=== PATIENT | female | born 1930 | race Asian ===

== ENCOUNTER 2018-10-14 15:39 | Inpatient (IN) | payer MEDICARE, MEDICAID ==
[2018-10-14 16:37] LABS: % BASOPHILS 0.9 % (0.0-2.0); % EOSINOPHILS 0.4 % (0.0-5.0); % LYMPHOCYTES 13.3 % (20.0-50.0); % MONOCYTES 8.1 % (2.0-10.0); % NEUTROPHILS 77.3 % (40.0-80.0); BASOPHILE ABSOLUTE 0.1 Th/cumm (0-0.2); HEMATOCRIT 35.7 % (41.0-60); HEMOGLOBIN 11.9 gm/dL (12-16); LYMPHOCYTE ABSOLUTE 0.8 Th/cmm (1.5-3.0); MEAN CORPUSCULAR HGB CONC 33.3 pg (28.0-36.0); MEAN PLATELET VOLUME 7.5 fl; MONOCYTE ABSOLUTE 0.5 Th/cmm (0.3-1.0); NEUTROPHILE ABSOLUTE 4.8 Th/cmm (1.8-8.0); PLATELET COUNT 199 Th/cmm (150-400); RED BLOOD COUNT 3.31 Mil/cmm (3.80-5.20); WHITE BLOOD COUNT 6.2 Th/cmm (4.8-10.8)
[2018-10-14 16:56] LABS: ALB/GLOB RATIO 0.8 (1.0-1.8); ALBUMIN 2.7 gm/dL (3.7-5.3); ALKALINE PHOSPHATASE 47 U/L (34-104); AMYLASE SERUM 122 U/L (29-103); ANION GAP 14.5 (7.0-16.0); BILIRUBIN,TOTAL 0.8 mg/dL (0.3-1.0); BUN - UREA NITROGEN 48 mg/dL (7-25); CALCIUM SERUM 9.7 mg/dL (8.6-10.3); CARBON DIOXIDE 26.2 mEq/L (21.0-31.0); CHLORIDE 98 mEq/L (98-107); CREATININE - SERUM 1.9 mg/dL (0.6-1.2); GLUCOSE 92 mg/dL (70-105); LIPASE 180 U/L (11-82); MAGNESIUM 3.5 mg/dL (1.9-2.7); PHOSPHOROUS 4.4 mg/dL (2.5-5.0); POTASSIUM SERUM 4.7 mEq/L (3.5-5.1); SGOT 32 U/L (13-39); SGPT/ALT 13 U/L (7-52); SODIUM SERUM 134 mEq/L (136-145); TOTAL PROTEIN,SERUM 6.2 gm/dL (6.0-8.3)
[2018-10-14] MEDS ORDERED: Lactated Ringer 1,000 ML IV ONE (17:17)
--- NOTE | 2018-10-14 20:18 | ED Physician Chart ---
ED Chief Complaint/HPI - Patient Information Date Seen:: 10/14/18 Time Seen:: 06:40 Chief Complaint:: ascites abd pain History of Present Illness:: 87 yr old female with ascites pancreatitis liver cirrhosis generalized weakness osteopenia htn cholelithisis Allergies:: Allergies Allergy/AdvReac Type Severity Reaction Status Date / Time No Known Allergies Allergy Verified 10/14/18 16:09 Vitals:: Vital Signs - 8 hr 10/14/18 15:55 Temp 96.8 F HR 48 RR 18 BP 100/65 O2 Sat % 98 ED Review of Systems - Review of Systems General/Constitutional: No fever Head: No headache ENT: No earache Neck: No neck pain Cardio Vascular: No chest pain Pulmonary: No SOB GI: No vomiting ED Past Medical History - Past Medical History Past Medical History: Other (see HPI) ED Physical Exam - Physical Examination General/Constitutional: Awake Head: Atraumatic Other Skin comments:: SKIN JAUNDICED SCLERA ICTERIC Respiratory: Nl effort/Exclusion Other GI comments:: ABD DISTENTION ASCITES ED Labs/Radiology/EKG Results - Lab Results Results: Laboratory Tests 10/14/18 10/14/18 10/14/18 13:31 13:31 13:31 WBC 6.2 RBC 3.31 L Hgb 11.9 L Hct 35.7 L MCV 108.0 H MCH 36.0 H MCHC Differential 33.3 RDW 14.0 Plt Count 199 MPV 7.5 Neutrophils % 77.3 Lymphocytes % 13.3 L Monocytes % 8.1 Eosinophils % 0.4 Basophils % 0.9 Sodium 134 L Potassium 4.7 Chloride 98 Carbon Dioxide 26.2 Anion Gap 14.5 BUN 48 H Creatinine 1.9 H Est GFR ( Amer) TNP Est GFR (Non-Af Amer) TNP BUN/Creatinine Ratio 25.3 Glucose 92 Whole Bld Lactic Acid 2.01 H* Calcium 9.7 Phosphorus 4.4 Magnesium 3.5 H Total Bilirubin 0.8 AST 32 ALT 13 Alkaline Phosphatase 47 Ammonia Total Protein 6.2 Albumin 2.7 L Globulin 3.5 Albumin/Globulin Ratio 0.8 L Amylase 122 H Lipase 180 H TSH 10/14/18 10/14/18 10/14/18 16:31 16:31 19:40 WBC RBC Hgb Hct MCV MCH MCHC Differential RDW Plt Count MPV Neutrophils % Lymphocytes % Monocytes % Eosinophils % Basophils % Sodium Potassium Chloride Carbon Dioxide Anion Gap BUN Creatinine Est GFR ( Amer) Est GFR (Non-Af Amer) BUN/Creatinine Ratio Glucose Whole Bld Lactic Acid 2.68 H* Calcium Phosphorus Magnesium Total Bilirubin AST ALT Alkaline Phosphatase Ammonia 56 H Total Protein Albumin Globulin Albumin/Globulin Ratio Amylase Lipase TSH 3.98 ED Assessment - Assessment General Assessment: ASCITES ABD PAIN ED Septic Shock - . Is Septic Shock (SBP<90, OR Lactate>4 mmol\L) present?: No - <6hrs of presentation: Vital Signs: Vital Signs - 8 hr 10/14/18 15:55 Temp 96.8 F HR 48 RR 18 BP 100/65 O2 Sat % 98 ED Reassessment (Disposition) - Reassessment Reassessment:: ASCITES ABD PAIN - Diagnosis Diagnosis:: ASCITES ABD PAIN FECAL IMPACTION - Patient Disposition Discharge/Transfer:: Acute Care w/in this hosp Admitted to:: Telemetry Condition at Disposition:: Stable
[2018-10-15] MEDS ORDERED: D5-0.45NS 1,000 ML IV SCH (02:00)
[2018-10-15] MEDS ORDERED: Pneumococcal Vaccine 0.5 mL Vial IM ONE (04:00)
[2018-10-15 06:48] LABS: % BASOPHILS 0.1 % (0.0-2.0); % EOSINOPHILS 0.3 % (0.0-5.0); % LYMPHOCYTES 11.2 % (20.0-50.0); % MONOCYTES 8.7 % (2.0-10.0); % NEUTROPHILS 79.7 % (40.0-80.0); HEMATOCRIT 32.7 % (41.0-60); HEMOGLOBIN 11.1 gm/dL (12-16); LYMPHOCYTE ABSOLUTE 0.8 Th/cmm (1.5-3.0); MEAN CORPUSCULAR HEMOGLOBIN 36.7 pg (27.0-31.0); MEAN PLATELET VOLUME 7.6 fl; MONOCYTE ABSOLUTE 0.6 Th/cmm (0.3-1.0); NEUTROPHILE ABSOLUTE 5.4 Th/cmm (1.8-8.0); PLATELET COUNT 177 Th/cmm (150-400); RED BLOOD COUNT 3.03 Mil/cmm (3.80-5.20); RED CELL DISTRIBUTION WIDTH 13.9 % (11.5-20.0); WHITE BLOOD COUNT 6.8 Th/cmm (4.8-10.8)
[2018-10-15 07:05] LABS: ANION GAP 13.5 (7.0-16.0); BUN - UREA NITROGEN 56 mg/dL (7-25); CALCIUM SERUM 9.3 mg/dL (8.6-10.3); CARBON DIOXIDE 26.1 mEq/L (21.0-31.0); CHLORIDE 99 mEq/L (98-107); CREATININE - SERUM 2.3 mg/dL (0.6-1.2); GLUCOSE 105 mg/dL (70-105); POTASSIUM SERUM 4.6 mEq/L (3.5-5.1); SODIUM SERUM 134 mEq/L (136-145)
[2018-10-15 07:30] LABS: INR 1.06 (0.5-1.4)
[2018-10-15 08:11] VITALS: BP 110/66
--- NOTE | 2018-10-15 08:52 | Diagnostic Imaging Report ---
CT scan abdomen and pelvis without intravenous contrast HISTORY: Pain Total DLP equals 445 CTDI equals 8.3 Axial sections were obtained from the xiphoid process down to the pubic symphysis. The exam demonstrates moderate amount of diffuse ascites throughout the abdomen and pelvis. The liver exhibits a diminished size with an irregular contour. Findings consistent with cirrhosis. Spleen appears normal. No focal abnormalities seen within the pancreas. Small calcification noted near the kristin hepatis. Exact relationship to the gallbladder is uncertain. If necessary, sonography may provide additional assessment. The kidneys appear diminished in size bilaterally. No focal lesions or hydronephrosis. There is a severely dilated air and fluid-filled stomach along with severely dilated loops of small bowel. There is a severely distended stool-filled rectum and lower sigmoid colon. The findings may be associated with a fecal impaction. Clinical correlation is needed. No discrete abnormal soft tissue masses seen within the pelvis. IMPRESSION: 1. Markedly dilated fluid-filled stomach associated with multiple loops of markedly dilated small bowel. Though findings associated with a distal small bowel obstruction cannot be excluded, the presence of a distended stool-filled rectum and lower sigmoid colon may suggest changes related to fecal impaction. Clinical correlation is needed. 2. Ascites 3. Diminished hepatic size with irregularity consistent with cirrhosis 4. Small calcifications near the kristin hepatis. Exact relationship to the gallbladder is uncertain. If necessary, sonography would provide assessment of cholelithiasis 5. Diminished renal size 6. Striated appearance involving several vertebrae. Changes related to hemangiomas within the vertebrae cannot be excluded.
[2018-10-15] MEDS ORDERED: Fleet Enema 135 mL RC PRN (11:32)
[2018-10-15] MEDS: D5-0.45NS 1,000 ML IV SCH (13:09)
[2018-10-15] MEDS ORDERED: Magnesium Hydroxide (MOM) 30 mL UDC PO PRN (14:00)
--- NOTE | 2018-10-15 16:27 | History & Physical ---
ADMIT DATE: 10/15/2018 HISTORY OF PRESENT ILLNESS: An 87-year-old female patient. The patient known to have history of hepatitis, history of cirrhosis of the liver and generalized ascites, history of pancreatitis in the past. Also, severe osteopenia and malnutrition. The patient is a resident of [facility]. The patient started experiencing more shortness of breath and her abdominal girth was increasing. The patient was seen in the [facility] [place] in the ER and was transferred to the floor. The patient was somewhat lethargic, complaining of abdominal discomfort, blood pressure on the low side 100/65, heart rate was low at 48, respiratory rate was 18, and saturation was 98%. The patient has no fever, no chills, no rigors, no other problems. PAST MEDICAL HISTORY: As noted above. PHYSICAL EXAMINATION: GENERAL: The patient is malnourished, very thin, cachectic, protuberant abdomen. HEAD: Normal. ENT: Normal. LUNGS: Bilaterally decreased. CARDIOVASCULAR SYSTEM: S1, S2 heard. ABDOMEN: Softly distended and somewhat tense ascites. EXTREMITIES: Revealed no edema. 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 DIAGNOSES: Hypotension, bradycardia/severe tense ascites, abdominal pain, history of cirrhosis of the liver, history of pancreatitis in the past, malnutrition, megaloblastosis, high lactic acid of 2.68, rule out sepsis with lipase of 180 indicating some amount of pancreatitis, and fecal impaction was made. PLAN: The patient was admitted. I will go ahead and gingerly give her some colloids and albumin. I will continue her medication from the long term. We will do the ultrasound-guided paracentesis. Please note her albumin was 2.7 and high BUN and creatinine, so we will also call Dr. Ruggiero for consult and follow the patient. JOB# [id number]
[2018-10-15 23:52] LABS: URINE SOURCE CATH
[2018-10-16 01:20] LABS: URINE BILIRUBIN NEGATIVE (NEGATIVE); URINE BLOOD SMALL (NEGATIVE); URINE GLUCOSE (UA) NEGATIVE (NEGATIVE); URINE KETONE TRACE mg/dL (NEGATIVE); URINE LEUKOCYTE ESTERASE NEGATIVE (NEGATIVE); URINE MICROSCOPIC INDICATED? YES; URINE NITRATE NEGATIVE (NEGATIVE); URINE PH 5.5 (4.6 - 8.0); URINE PROTEIN NEGATIVE (NEGATIVE); URINE UROBILINOGEN 0.2 E.U./dL (0.2 - 1.0)
[2018-10-16 01:21] LABS: URINE CLARITY HAZY (CLEAR); URINE COLOR YELLOW
[2018-10-16 01:22] LABS: URINE BACTERIA FEW /hpf (NONE SEEN); URINE EPITHELIAL CELLS MANY /lpf (FEW); URINE RBC NONE SEEN /hpf (0-5)
[2018-10-16 02:08] LABS: EOSINOPHIL SMEAR SOURCE URINE; EOSINOPHILS SMEAR COUNT NONE SEEN (NONE SEEN)
--- NOTE | 2018-10-16 04:24 | Consultation ---
DATE OF CONSULTATION: 10/15/2018 REASON FOR CONSULTATION: Worsening kidney function, electrolyte imbalance, and fluid management. HISTORY OF PRESENT ILLNESS: This is an 87-year-old [place] female with past medical history of chronic kidney disease, who came in because of severe abdominal pain. Two days prior to admission, the patient developed abdominal pain. She was given several laxatives to no avail. This was also associated with increasing abdominal girth. A few hours prior to admission, she could no longer tolerate the pain. Thus, she was brought to the Emergency Room. CT scan of the abdomen/pelvis revealed stool filled rectum, ascites, liver cirrhosis, possible cholelithiasis and small kidneys. She had chronic kidney disease, per grandson. Her BUN/creatinine on admission were 48/1.9. Her BUN/creatinine today were 56/2.3. She does not have any nausea and vomiting, no diarrhea. PAST MEDICAL HISTORY: 1. Chronic kidney disease. 2. Liver cirrhosis with ascites. The patient has had paracentesis for approximately three times within the last year. 3. Recurrent pancreatitis. 4. Essential hypertension. 5. Cholelithiasis. 6. Severe malnutrition. CURRENT MEDICATIONS: Currently on ascorbic acid, bisacodyl, docusate sodium, Fleet enema. ALLERGIES: No known drug allergies. SOCIAL HISTORY: No history of alcohol or tobacco use. FAMILY HISTORY: Unknown at the present time. REVIEW OF SYSTEMS: Unable to obtain from the patient because she is very lethargic at the present time. PHYSICAL EXAMINATION: GENERAL: As mentioned, the patient is lethargic, very cachectic, chronically ill looking. VITAL SIGNS: Her blood pressure is 115/68, pulse 58, temperature 97.3 degrees. SKIN: Poor turgor, warm, no rash, but she has multiple ecchymosis as well as hematomas in her lower extremities as well as upper extremities and left hand. HEENT: Head normocephalic, atraumatic. Eyes: Extraocular muscles intact. Pupils equal, round, reactive to light and accommodates. Anicteric sclerae, pale conjunctivae. Nose, midline nasal septum. Mouth: Dry mucosa. Poor dentition. NECK: Supple, no adenopathy, no thyromegaly, no bruits. Trachea palpated in the midline. CHEST AND CARDIOVASCULAR: S1, S2. No rub, murmur or gallop appreciated. Point of maximal impulse fifth intercostal space, left midclavicular line. No abdominal or femoral bruits appreciated. LUNGS: Equal expansion, no use of accessory muscles. No supraclavicular retractions. Decreased breath sounds, few rhonchi, but no rales or wheezes appreciated. BREASTS: Symmetrical, without any discharge. ABDOMEN: Presence of ascites, caput medusae, tympanitic on percussion. She also has a scalded skin appearance present in her left lower to left flank area. No bruits either diastolic or systolic. RECTAL: Lax sphincter tone with some stool on examining finger. GENITOURINARY: Normal appearing female genitalia. MUSCULOSKELETAL: No effusions present in her joints with limited range of motion. EXTREMITIES: No evidence of edema, cyanosis or clubbing with atrophic muscles of the lower extremities. NEUROLOGIC: As mentioned, the patient is somewhat lethargic, so she was not able to follow my neuro commands. LABORATORY DATA AND STUDIES: Did reveal white count is 6.8, hemoglobin 11.1, hematocrit 32.7, platelets 177. Sodium 134, potassium 4.6, chloride 95, bicarbonate 26, BUN 56, creatinine 2.3, glucose 105, calcium 9.3, phosphorus 4.4, magnesium 3.5, lipase 180. TSH 3.58. IMPRESSION: 1. Acute kidney injury on chronic kidney disease. The patient's chronic kidney disease is possibly due to a chronic ____ disease with history of longstanding liver cirrhosis, possibly from hepatitis (membranous glomerulonephritis or membranous proliferative glomerulonephritis). Acute kidney injury in this case is prerenal initially because of decrease in effective circulating volume brought about by her ascites and decrease in effective circulating volume. Her prerenal azotemia may have progressed to acute tubular injury. However, we also need to consider hepatorenal syndrome, which is a diagnosis of exclusion. 2. Liver cirrhosis, etiology unknown, possibly hepatitis. 3. Macrocytosis. 4. Recurrent pancreatitis, possibly from presence of cholelithiasis. 5. Multiple hematomas. 6. Left abdominal to flank scalded skin wound. 7. Severe malnutrition. PLAN: 1. Gentle hydration. 2. Fleet enema. 3. Requires therapeutic paracentesis. 4. Hepatitis panel. 5. Urinalysis. 6. Urine sodium, eosinophils, and creatinine. 7. Urine microalbumin to creatinine ratio. 8. Fluid restriction. 9. Lipase, electrolytes. Thank you Dr. Gerber for this consult. We will follow the patient closely with you. JOB# [id number]
[2018-10-16] MEDS: D5-0.45NS 1,000 ML IV SCH (06:00)
[2018-10-16 06:42] LABS: ANION GAP 11.5 (7.0-16.0); BUN - UREA NITROGEN 60 mg/dL (7-25); CALCIUM SERUM 8.8 mg/dL (8.6-10.3); CARBON DIOXIDE 25.1 mEq/L (21.0-31.0); CHLORIDE 99 mEq/L (98-107); CREATININE - SERUM 2.4 mg/dL (0.6-1.2); GLUCOSE 98 mg/dL (70-105); LIPASE 190 U/L (11-82); POTASSIUM SERUM 3.6 mEq/L (3.5-5.1); SODIUM SERUM 132 mEq/L (136-145)
--- NOTE | 2018-10-16 09:20 | Diagnostic Imaging Report ---
KUB abdominal film (portable) HISTORY: Pain, fecal impaction Compared with the prior CT scan of 10/14/2018, there remains multiple loops of mildly dilated small bowel. Changes associated with a degree of obstruction cannot be excluded. Follow-up is needed. No free intraperitoneal air. IMPRESSION: 1. Mildly dilated loops of small bowel. Changes related to a degree of obstruction cannot be excluded. Follow-up is needed.
[2018-10-16] MEDS: Lactulose 10 Gm/15 mL 30mL UDC PO SCH ×2 (10:42→16:24)
[2018-10-16 14:03] LABS: BODY FLUID SOURCE PARACENTHESIS
[2018-10-16 14:04] LABS: BF APPEARANCE CLEAR; BF COLOR PALE YELLOW
--- NOTE | 2018-10-16 15:15 | General Progress Note ---
Subjective - Review of Systems Service Date: 10/16/18 Subjective: more comfortable, less abd pain, no N/V Objective - Results Result Diagrams: 10/15/18 06:05 10/16/18 05:10 Recent Labs: Laboratory Last Values WBC 6.8 Th/cmm (4.8-10.8) 10/15/18 06:05 RBC 3.03 Mil/cmm (3.80-5.20) L 10/15/18 06:05 Hgb 11.1 gm/dL (12-16) L 10/15/18 06:05 Hct 32.7 % (41.0-60) L 10/15/18 06:05 MCV 108.0 fl (81-100) H 10/15/18 06:05 MCH 36.7 pg (27.0-31.0) H 10/15/18 06:05 MCHC Differential 34.0 pg (28.0-36.0) 10/15/18 06:05 RDW 13.9 % (11.5-20.0) 10/15/18 06:05 Plt Count 177 Th/cmm (150-400) 10/15/18 06:05 MPV 7.6 fl 10/15/18 06:05 Add Manual Diff 10/15/18 06:05 Neutrophils % 79.7 % (40.0-80.0) 10/15/18 06:05 Lymphocytes % 11.2 % (20.0-50.0) L 10/15/18 06:05 Monocytes % 8.7 % (2.0-10.0) 10/15/18 06:05 Eosinophils % 0.3 % (0.0-5.0) 10/15/18 06:05 Basophils % 0.1 % (0.0-2.0) 10/15/18 06:05 Eos Smear Source URINE 10/15/18 23:20 Eos Smear Total Cells NONE SEEN (NONE SEEN) 10/15/18 23:20 PT 11.0 SECONDS (9.5-11.5) 10/15/18 06:05 INR 1.06 (0.5-1.4) 10/15/18 06:05 PTT (Actin FS) 31.4 SECONDS (26.0-38.0) 10/15/18 06:05 Sodium 132 mEq/L (136-145) L 10/16/18 05:10 Potassium 3.6 mEq/L (3.5-5.1) 10/16/18 05:10 Chloride 99 mEq/L (98-107) 10/16/18 05:10 Carbon Dioxide 25.1 mEq/L (21.0-31.0) 10/16/18 05:10 Anion Gap 11.5 (7.0-16.0) 10/16/18 05:10 BUN 60 mg/dL (7-25) H 10/16/18 05:10 Creatinine 2.4 mg/dL (0.6-1.2) H 10/16/18 05:10 Est GFR ( Amer) TNP 10/16/18 05:10 Est GFR (Non-Af Amer) TNP 10/16/18 05:10 BUN/Creatinine Ratio 25.0 10/16/18 05:10 Glucose 98 mg/dL (70-105) 10/16/18 05:10 Whole Bld Lactic Acid 1.95 mmol/L (0.60-1.99) 10/15/18 08:08 Calcium 8.8 mg/dL (8.6-10.3) 10/16/18 05:10 Phosphorus 4.4 mg/dL (2.5-5.0) 10/14/18 13:31 Magnesium 3.5 mg/dL (1.9-2.7) H 10/14/18 13:31 Total Bilirubin 0.8 mg/dL (0.3-1.0) 10/14/18 13:31 AST 32 U/L (13-39) 10/14/18 13:31 ALT 13 U/L (7-52) 10/14/18 13:31 Alkaline Phosphatase 47 U/L (34-104) 10/14/18 13:31 Ammonia 37 umol/L (16-53) 10/15/18 06:05 Total Protein 6.2 gm/dL (6.0-8.3) 10/14/18 13:31 Albumin 2.7 gm/dL (3.7-5.3) L 10/14/18 13:31 Globulin 3.5 gm/dL 10/14/18 13:31 Albumin/Globulin Ratio 0.8 (1.0-1.8) L 10/14/18 13:31 Amylase 122 U/L (29-103) H 10/14/18 13:31 Lipase 190 U/L (11-82) H 10/16/18 05:10 TSH 3.98 uIU/ml (0.34-5.60) 10/14/18 16:31 Urine Source CATH 10/15/18 23:20 Urine Color YELLOW 10/15/18 23:20 Urine Clarity HAZY (CLEAR) 10/15/18 23:20 Urine pH 5.5 (4.6 - 8.0) 10/15/18 23:20 Ur Specific [place] 1.025 (1.005-1.030) 10/15/18 23:20 Urine Protein NEGATIVE mg/dL (NEGATIVE) 10/15/18 23:20 Urine Glucose (UA) NEGATIVE mg/dL (NEGATIVE) 10/15/18 23:20 Urine Ketones TRACE mg/dL (NEGATIVE) 10/15/18 23:20 Urine Blood SMALL (NEGATIVE) H 10/15/18 23:20 Urine Nitrate NEGATIVE (NEGATIVE) 10/15/18 23:20 Urine Bilirubin NEGATIVE (NEGATIVE) 10/15/18 23:20 Urine Urobilinogen 0.2 E.U./dL (0.2 - 1.0) 10/15/18 23:20 Ur Leukocyte Esterase NEGATIVE (NEGATIVE) 10/15/18 23:20 Urine RBC NONE SEEN /hpf (0-5) 10/15/18 23:20 Urine WBC 2-5 /hpf (0-5) 10/15/18 23:20 Ur Epithelial Cells MANY /lpf (FEW) 10/15/18 23:20 Urine Bacteria FEW /hpf (NONE SEEN) 10/15/18 23:20 Ur Random Sodium 61 mmol/L 10/15/18 23:20 Urine Creatinine 71.0 mg/dl (28.0-217.0) 10/15/18 23:20 Fluid Source PARACENTHESIS 10/16/18 10:20 Fluid Color PALE YELLOW 10/16/18 10:20 Fluid Appearance CLEAR 10/16/18 10:20 - Physical Exam Vitals and I&O: Vital Signs Temp 96.4 F 10/16/18 12:00 Pulse 51 10/16/18 12:00 Resp 18 10/16/18 12:00 BP 98/46 10/16/18 12:00 Pulse Ox 100 10/16/18 12:00 Intake & Output 10/15/18 10/16/18 10/16/18 18:59 06:59 18:59 Intake Total 500 565.5 Balance 500 565.5 Weight (lbs) 37.648 kg 37.195 kg Intake: Intake, IV Amount 505.5 D5-0.45NS 1,000 ml @ 30 505.5 mls/hr IV .Q24H [facility] Rx#: [id number] Oral 500 60 Other: # Voids 2 4 # Bowel Movements 1 3 Stool Characteristics Soft Formed Weight Source Bedscale Bedscale Active Medications: Current Medications Ascorbic Acid (Vitamin C) 500 mg PO DAILY [facility] Stop: 12/15/18 08:59 Last Admin: 10/16/18 10:42 Dose: 500 mg Bisacodyl (Dulcolax 10 Mg Supp) 10 mg RC DAILY PRN PRN Reason: Constipation Stop: 12/14/18 11:31 Last Admin: 10/15/18 13:59 Dose: 10 mg Docusate Sodium (Colace) 250 mg PO DAILY [facility] Stop: 12/15/18 08:59 Last Admin: 10/16/18 10:43 Dose: 250 mg Dextrose/Sodium Chloride (D5-0.45ns) 1,000 mls @ 30 mls/hr IV .Q24H [facility] Stop: 12/14/18 12:59 Last Admin: 10/16/18 06:00 Dose: 30 mls/hr Lactulose (Cephulac) 30 gm PO BID [facility] Stop: 12/15/18 08:59 Last Admin: 10/16/18 10:42 Dose: 30 gm Magnesium Hydroxide (Milk Of Magnesia) 30 ml PO DAILY PRN PRN Reason: Constipation Stop: 12/14/18 13:59 Ondansetron HCl (Zofran) 4 mg IV Q6H PRN PRN Reason: Nausea / Vomiting Stop: 12/14/18 01:48 Sodium Phosphate (Fleet Enema) 135 ml RC Q48HR PRN PRN Reason: Constipation Stop: 12/14/18 11:31 Last Admin: 10/15/18 13:59 Dose: 135 ml General: Alert, No acute distress HEENT: Atraumatic, Mucous membr. moist/pink Neck: Supple, JVD Cardiovascular: Regular rate, Normal S1, Normal S2 Lungs: Clear to auscultation Abdomen: Bowel sounds, Soft (less tender), Other (less tender, decreased distension) Extremities: no Edema Neurological: Sensation intact Skin: Significant lesion (scalded skin abd to left flank) Psych/Mental Status: Mood NL Assessment/Plan - Assessment Assessment: Liver Cirrhosis w/ ascitis Macrocytosis YULIYA on CKD Recurrent Pancratitis Multiple hematomas Scalded Skin Wound Severe Malnutrition - Plan Plan: Lab - Result Diagrams 10/15/18 06:05 10/16/18 05:10 Current Medications Ascorbic Acid (Vitamin C) 500 mg PO DAILY [facility] Stop: 12/15/18 08:59 Last Admin: 10/16/18 10:42 Dose: 500 mg Bisacodyl (Dulcolax 10 Mg Supp) 10 mg RC DAILY PRN PRN Reason: Constipation Stop: 12/14/18 11:31 Last Admin: 10/15/18 13:59 Dose: 10 mg Docusate Sodium (Colace) 250 mg PO DAILY [facility] Stop: 12/15/18 08:59 Last Admin: 10/16/18 10:43 Dose: 250 mg Dextrose/Sodium Chloride (D5-0.45ns) 1,000 mls @ 30 mls/hr IV .Q24H [facility] Stop: 12/14/18 12:59 Last Admin: 10/16/18 06:00 Dose: 30 mls/hr Lactulose (Cephulac) 30 gm PO BID [facility] Stop: 12/15/18 08:59 Last Admin: 10/16/18 10:42 Dose: 30 gm Magnesium Hydroxide (Milk Of Magnesia) 30 ml PO DAILY PRN PRN Reason: Constipation Stop: 12/14/18 13:59 Ondansetron HCl (Zofran) 4 mg IV Q6H PRN PRN Reason: Nausea / Vomiting Stop: 12/14/18 01:48 Sodium Phosphate (Fleet Enema) 135 ml RC Q48HR PRN PRN Reason: Constipation Stop: 12/14/18 11:31 Last Admin: 10/15/18 13:59 Dose: 135 ml Lab - Result Diagrams 10/15/18 06:05 10/16/18 05:10 Bun/Cr increased to 60/2.4 Had 7 BM Underwent therapeutic tap, eve 500 ml peritoneal fluid obtained more comfortable f/u electrolytes Nutritional Asmnt/Malnutr-PDOC - Dietary Evaluation Malnutrition Findings (Please click <Entered> for more info): Nutritional Asmnt/Malnutrition Start: 10/15/18 11: 49 Text: Status: Complete Freq: Protocol: Document 10/15/18 11:49 [email or web address] (Rec: 10/15/18 11:56 [email or web address] [id number] [email or web address]) Nutritional Asmnt/Malnutrition Patient General Information Nutritional Screening High Risk Consult Diagnosis Ascites, abdominal pain, thrush fecal impaction Pertinent Medical Hx/Surgical Hx Pancreatitis, cholelithiasis, liver cirrhosis, osteopenia, cholecystitis, ascites Subjective Information Patient planned for paracentesis. Per nursing notes, patient needing fecal disimpacion and received fleet enema and suppository. Per family at bedside, patient has had a poor appetite and not eating for >1 week. He attributes this to her constipation and states she usually eats more. She especially will eat when they bring her food from outside. She prefers vanilla flavored supplements. He states she can tolerate regular diet texture without difficulty. patient visually with moderate to severe muscle wasting in temples and clavicles. Current Diet Order/ Nutrition Support Regular Patient / S.O Not Indicated Pertinent Medications Vitamin C, Dulcolax, D5-0.45 NS, colace, zofran, fleet enema Pertinent Labs (10/15) Na 134, BUN 56, Cr 2.3 (10/14) Mg 3.5, alumin 2.7 Nutritional Hx/Data Height 1.47 m Height (Calculated Centimeters) 147.3 Current Weight (lbs) 37.648 kg Weight (Calculated Kilograms) 37.6 Weight (Calculated Grams) 00473.2 [place] Body Weight 95 % [place] Body Weight 87 Body Mass Index (BMI) 17.3 Recent Weight Change No Weight Status Underweight GI Symptoms GI Symptoms Constipation Last BM prior to admissio Difficult in: None Food Allergies No Cultural/Ethnic/Church Belief none indicated Usual diet at home unknown Skin Integrity/Comment: Decubitus left leg, bruise right leg, maceration left hip , left abdomen, left back Nutritional Problem 2. Problem Problem Altered GI Function Etiology related to fecal impaction aeb Signs/Symptoms: nursing notes stating patient with impaction, pts family stating patient is uncomfortable and not wanting to eat due to constipation 1. Problem Problem Underweight related to Etiology likely inadequate intake/poor appetite aeb Signs/Symptoms: BMI 17.5 Intervention/Recommendation Comments 1. Continue reulgar diet as tolerated by patient. 2. Continue GI motility agents per MD to assist with constipation, which will help with appetite. 3. Add Ensure Enlive (vanilla) TID with meals to encourage weight gain. Expected Outcomes/Goals Expected Outcomes/Goals Oral intake >75% of meals, weight gain, nutrition related labs normalize
[2018-10-16 16:33] LABS: BF RBC 106.7 /cumm; BF WBC 33.3 /cumm
--- NOTE | 2018-10-16 19:58 | General Progress Note ---
Objective - Results Result Diagrams: 10/15/18 06:05 10/16/18 05:10 Recent Labs: Laboratory Last Values WBC 6.8 Th/cmm (4.8-10.8) 10/15/18 06:05 RBC 3.03 Mil/cmm (3.80-5.20) L 10/15/18 06:05 Hgb 11.1 gm/dL (12-16) L 10/15/18 06:05 Hct 32.7 % (41.0-60) L 10/15/18 06:05 MCV 108.0 fl (81-100) H 10/15/18 06:05 MCH 36.7 pg (27.0-31.0) H 10/15/18 06:05 MCHC Differential 34.0 pg (28.0-36.0) 10/15/18 06:05 RDW 13.9 % (11.5-20.0) 10/15/18 06:05 Plt Count 177 Th/cmm (150-400) 10/15/18 06:05 MPV 7.6 fl 10/15/18 06:05 Add Manual Diff 10/15/18 06:05 Neutrophils % 79.7 % (40.0-80.0) 10/15/18 06:05 Lymphocytes % 11.2 % (20.0-50.0) L 10/15/18 06:05 Monocytes % 8.7 % (2.0-10.0) 10/15/18 06:05 Eosinophils % 0.3 % (0.0-5.0) 10/15/18 06:05 Basophils % 0.1 % (0.0-2.0) 10/15/18 06:05 Eos Smear Source URINE 10/15/18 23:20 Eos Smear Total Cells NONE SEEN (NONE SEEN) 10/15/18 23:20 PT 11.0 SECONDS (9.5-11.5) 10/15/18 06:05 INR 1.06 (0.5-1.4) 10/15/18 06:05 PTT (Actin FS) 31.4 SECONDS (26.0-38.0) 10/15/18 06:05 Sodium 132 mEq/L (136-145) L 10/16/18 05:10 Potassium 3.6 mEq/L (3.5-5.1) 10/16/18 05:10 Chloride 99 mEq/L (98-107) 10/16/18 05:10 Carbon Dioxide 25.1 mEq/L (21.0-31.0) 10/16/18 05:10 Anion Gap 11.5 (7.0-16.0) 10/16/18 05:10 BUN 60 mg/dL (7-25) H 10/16/18 05:10 Creatinine 2.4 mg/dL (0.6-1.2) H 10/16/18 05:10 Est GFR ( Amer) TNP 10/16/18 05:10 Est GFR (Non-Af Amer) [facility] 10/16/18 05:10 BUN/Creatinine Ratio 25.0 10/16/18 05:10 Glucose 98 mg/dL (70-105) 10/16/18 05:10 Whole Bld Lactic Acid 1.95 mmol/L (0.60-1.99) 10/15/18 08:08 Calcium 8.8 mg/dL (8.6-10.3) 10/16/18 05:10 Phosphorus 4.4 mg/dL (2.5-5.0) 10/14/18 13:31 Magnesium 3.5 mg/dL (1.9-2.7) H 10/14/18 13:31 Total Bilirubin 0.8 mg/dL (0.3-1.0) 10/14/18 13:31 AST 32 U/L (13-39) 10/14/18 13:31 ALT 13 U/L (7-52) 10/14/18 13:31 Alkaline Phosphatase 47 U/L (34-104) 10/14/18 13:31 Ammonia 37 umol/L (16-53) 10/15/18 06:05 Total Protein 6.2 gm/dL (6.0-8.3) 10/14/18 13:31 Albumin 2.7 gm/dL (3.7-5.3) L 10/14/18 13:31 Globulin 3.5 gm/dL 10/14/18 13:31 Albumin/Globulin Ratio 0.8 (1.0-1.8) L 10/14/18 13:31 Amylase 122 U/L (29-103) H 10/14/18 13:31 Lipase 190 U/L (11-82) H 10/16/18 05:10 TSH 3.98 uIU/ml (0.34-5.60) 10/14/18 16:31 Urine Source CATH 10/15/18 23:20 Urine Color YELLOW 10/15/18 23:20 Urine Clarity HAZY (CLEAR) 10/15/18 23:20 Urine pH 5.5 (4.6 - 8.0) 10/15/18 23:20 Ur Specific [place] 1.025 (1.005-1.030) 10/15/18 23:20 Urine Protein NEGATIVE mg/dL (NEGATIVE) 10/15/18 23:20 Urine Glucose (UA) NEGATIVE mg/dL (NEGATIVE) 10/15/18 23:20 Urine Ketones TRACE mg/dL (NEGATIVE) 10/15/18 23:20 Urine Blood SMALL (NEGATIVE) H 10/15/18 23:20 Urine Nitrate NEGATIVE (NEGATIVE) 10/15/18 23:20 Urine Bilirubin NEGATIVE (NEGATIVE) 10/15/18 23:20 Urine Urobilinogen 0.2 E.U./dL (0.2 - 1.0) 10/15/18 23:20 Ur Leukocyte Esterase NEGATIVE (NEGATIVE) 10/15/18 23:20 Urine RBC NONE SEEN /hpf (0-5) 10/15/18 23:20 Urine WBC 2-5 /hpf (0-5) 10/15/18 23:20 Ur Epithelial Cells MANY /lpf (FEW) 10/15/18 23:20 Urine Bacteria FEW /hpf (NONE SEEN) 10/15/18 23:20 Ur Random Sodium 61 mmol/L 10/15/18 23:20 Urine Creatinine 71.0 mg/dl (28.0-217.0) 10/15/18 23:20 Fluid Source PARACENTHESIS 10/16/18 10:20 Fluid Color PALE YELLOW 10/16/18 10:20 Fluid Appearance CLEAR 10/16/18 10:20 Fluid WBC 33.3 /cumm 10/16/18 10:20 Fluid RBC 106.7 /cumm 10/16/18 10:20 Fluid Neutrophils 10 % 10/16/18 10:20 Fluid Lymphocytes 90 % 10/16/18 10:20 Fluid Monocytes Not Reportable 10/16/18 10:20 - Physical Exam Vitals and I&O: Vital Signs Temp 97.1 F 10/16/18 15:40 Pulse 60 10/16/18 15:40 Resp 18 10/16/18 15:40 BP 100/51 10/16/18 15:40 Pulse Ox 100 10/16/18 15:40 Intake & Output 10/16/18 10/16/18 10/17/18 06:59 18:59 06:59 Intake Total 565.5 600 Output Total 500 Balance 565.5 100 Weight (lbs) 37.195 kg 37.195 kg Intake: Intake, IV Amount 505.5 D5-0.45NS 1,000 ml @ 30 505.5 mls/hr IV .Q24H [facility] Rx#: [id number] Oral 60 600 Output: Gastric Drainage 500 Other: # Voids 4 3 # Bowel Movements 3 3 Weight Source Bedscale Bedscale Active Medications: Current Medications Ascorbic Acid (Vitamin C) 500 mg PO DAILY [facility] Stop: 12/15/18 08:59 Last Admin: 10/16/18 10:42 Dose: 500 mg Bisacodyl (Dulcolax 10 Mg Supp) 10 mg RC DAILY PRN PRN Reason: Constipation Stop: 12/14/18 11:31 Last Admin: 10/15/18 13:59 Dose: 10 mg Docusate Sodium (Colace) 250 mg PO DAILY [facility] Stop: 12/15/18 08:59 Last Admin: 10/16/18 10:43 Dose: 250 mg Dextrose/Sodium Chloride (D5-0.45ns) 1,000 mls @ 30 mls/hr IV .Q24H [facility] Stop: 12/14/18 12:59 Last Admin: 10/16/18 06:00 Dose: 30 mls/hr Lactulose (Cephulac) 30 gm PO BID [facility] Stop: 12/15/18 08:59 Last Admin: 10/16/18 16:24 Dose: 30 gm Magnesium Hydroxide (Milk Of Magnesia) 30 ml PO DAILY PRN PRN Reason: Constipation Stop: 12/14/18 13:59 Ondansetron HCl (Zofran) 4 mg IV Q6H PRN PRN Reason: Nausea / Vomiting Stop: 12/14/18 01:48 Sodium Phosphate (Fleet Enema) 135 ml RC Q48HR PRN PRN Reason: Constipation Stop: 12/14/18 11:31 Last Admin: 10/15/18 13:59 Dose: 135 ml General: Alert, No acute distress HEENT: Atraumatic, Mucous membr. moist/pink Neck: Supple, JVD Cardiovascular: Regular rate, Normal S1, Normal S2 Lungs: Clear to auscultation Abdomen: Bowel sounds, Soft (less tender), Other (less tender, decreased distension) Extremities: no Edema Neurological: Sensation intact Skin: Significant lesion (scalded skin abd to left flank) Psych/Mental Status: Mood NL Nutritional Asmnt/Malnutr-PDOC - Dietary Evaluation Malnutrition Findings (Please click <Entered> for more info): Nutritional Asmnt/Malnutrition Start: 10/15/18 11: 49 Text: Status: Complete Freq: Protocol: Document 10/15/18 11:49 MMULKANG (Rec: 10/15/18 11:56 MMULHERN PANKAJ- [email or web address]) Nutritional Asmnt/Malnutrition Patient General Information Nutritional Screening High Risk Consult Diagnosis Ascites, abdominal pain, thrush fecal impaction Pertinent Medical Hx/Surgical Hx Pancreatitis, cholelithiasis, liver cirrhosis, osteopenia, cholecystitis, ascites Subjective Information Patient planned for paracentesis. Per nursing notes, patient needing fecal disimpacion and received fleet enema and suppository. Per family at bedside, patient has had a poor appetite and not eating for >1 week. He attributes this to her constipation and states she usually eats more. She especially will eat when they bring her food from outside. She prefers vanilla flavored supplements. He states she can tolerate regular diet texture without difficulty. patient visually with moderate to severe muscle wasting in temples and clavicles. Current Diet Order/ Nutrition Support Regular Patient / S.O Not Indicated Pertinent Medications Vitamin C, Dulcolax, D5-0.45 NS, colace, zofran, fleet enema Pertinent Labs (10/15) Na 134, BUN 56, Cr 2.3 (10/14) Mg 3.5, alumin 2.7 Nutritional Hx/Data Height 1.47 m Height (Calculated Centimeters) 147.3 Current Weight (lbs) 37.648 kg Weight (Calculated Kilograms) 37.6 Weight (Calculated Grams) 74832.2 [place] Body Weight 95 % [place] Body Weight 87 Body Mass Index (BMI) 17.3 Recent Weight Change No Weight Status Underweight GI Symptoms GI Symptoms Constipation Last BM prior to admissio Difficult in: None Food Allergies No Cultural/Ethnic/Orthodox Belief none indicated Usual diet at home unknown Skin Integrity/Comment: Decubitus left leg, bruise right leg, maceration left hip , left abdomen, left back Nutritional Problem 2. Problem Problem Altered GI Function Etiology related to fecal impaction aeb Signs/Symptoms: nursing notes stating patient with impaction, pts family stating patient is uncomfortable and not wanting to eat due to constipation 1. Problem Problem Underweight related to Etiology likely inadequate intake/poor appetite aeb Signs/Symptoms: BMI 17.5 Intervention/Recommendation Comments 1. Continue reulgar diet as tolerated by patient. 2. Continue GI motility agents per MD to assist with constipation, which will help with appetite. 3. Add Ensure Enlive (vanilla) TID with meals to encourage weight gain. Expected Outcomes/Goals Expected Outcomes/Goals Oral intake >75% of meals, weight gain, nutrition related labs normalize
[2018-10-16] MEDS ORDERED: Hydrocodone/APAP 5mg/325mg Tab PO PRN (23:28)
[2018-10-17] MEDS: D5-0.45NS 1,000 ML IV SCH (02:01)
--- NOTE | 2018-10-17 05:52 | Consultation ---
DATE OF CONSULTATION: 10/16/2018 INPATIENT GI CONSULTATION CONSULTING PHYSICIAN: Dr. Gerber. REASON FOR CONSULTATION: Cirrhosis, fecal impaction, ascites. HISTORY OF PRESENT ILLNESS: The patient is an 87-year-old female with history of liver cirrhosis, decompensated by ascites and possibly by hepatic encephalopathy, also with history of pancreatitis, admitted to the hospital with increased abdominal distention and perceived shortness of breath. The patient was at a nursing facility where it was thought that she was having increasing abdominal girth and experiencing trouble breathing, which is the reason that she was transferred to the acute care hospital. Apparently, she has been complaining of abdominal discomfort, although she is largely nonverbal when I tried to interact with her on the current interview. Her evaluation here has consisted of a CT scan showing fecal impaction type changes as well as several fluid and stool-filled loops of small bowel in addition to ascites. Since her admission, she has been given a Fleet enema and Dulcolax suppository and has had three large bowel movements, according to the nursing staff and become less distended. A paracentesis was ordered, but not yet performed as there was waiting for the fecal impaction to resolve. PAST MEDICAL HISTORY: Cirrhosis of the liver of unclear etiology is decompensated by ascites and hepatic encephalopathy, history of pancreatitis, dysphagia, chronic kidney disease. PAST SURGICAL HISTORY: Unknown as the patient is unable to give me a history in this regard. FAMILY HISTORY: Noncontributory. SOCIAL HISTORY: The patient lives at a nursing facility. There is no documented history of alcoholism or illicit drugs. ALLERGIES: No known drug allergies. REVIEW OF SYSTEMS: Not possible given the patient is not able to interact with me and interview. CURRENT MEDICATIONS: Include Vitamin C, Dulcolax suppository, IV fluid, Colace, milk of magnesia, Zofran, Fleet enema. PHYSICAL EXAMINATION: VITAL SIGNS: Blood pressure is 127/50, pulse 45 beats per minute, temperature 97.0, oxygenation 96% on 2 liters, respiratory rate of 18. GENERAL: She is lying in bed on her back at 30 degrees. She is alert, oriented x 1, in no apparent distress. HEAD, EYES, EARS, NOSE AND THROAT: Normocephalic, atraumatic appearing head. Pupils are equal and reactive. The patient does not have any teeth, otherwise moist mucous membranes. NECK: Supple. There is JVD. There is no thyromegaly. CHEST: There are crackles at the bases. CARDIOVASCULAR: S1, S2 are present, but bradycardic. ABDOMEN: There is a bandage covering what appears to be a rash otherwise a mild to moderate distention, although not tense. No guarding or rebound. No tenderness to deep palpation. EXTREMITIES: 1+ pitting edema bilaterally, frail appearing, otherwise with venous stasis changes. LABORATORY DATA: White blood cell count 6.8, hemoglobin 11.1, platelet count 177. INR is 1.06. Sodium 134, BUN 56, creatinine is 2.3. Ammonia level 56 on admission, now 37, lipase 190. IMAGING: Abdomen and pelvis CT scan was performed on admission without contrast and this shows markedly dilated fluid filled stomach and lower loops of small bowel and fecal impaction, ascites, liver cirrhosis. IMPRESSION: This is an 87-year-old female with history of liver cirrhosis, decompensated by ascites and hepatic encephalopathy, admitted to the hospital with increasing abdominal distention and shortness of breath. 1. Liver cirrhosis, decompensated by ascites and hepatic encephalopathy. 2. Fecal impaction. 3. Ileus likely related to fecal impaction. 4. Abdominal ascites. 5. Dementia. DISCUSSION: It appears that the patient has had at least partial resolution of her fecal impaction since her admission as she has had several bowel movements after the Fleet enema was given her and her abdomen is now less distended as per the staff. I think she likely has some more stool to go and that is we will order her to have tap water enemas every 12 hours for 1 day as well as institute an oral regimen. Continue lactulose as she does have cirrhosis with hepatic encephalopathy, which will also help prevent impactions in the future. This will also help with her encephalopathy. Paracentesis has already been ordered and this is a good idea just to rule out SBP and will be done by the radiologist. In terms of liver cirrhosis, I think it is highly likely that this has already been worked up with labs previously and those records can be obtained rather than trying to do another set of the same labs now. RECOMMENDATIONS: 1. We will order lactulose to help with both encephalopathy and prevent fecal impaction going forward. 2. Tap water enemas every 12 hours for 1 day. 3. Agree with paracentesis. Cell count should be sent from the fluid. 4. Oral diet as tolerated. 5. Continue to trend the LFTs and the ammonia level. 6. Management of the patient's other chronic medical illnesses as per primary. Thank you for allowing me to participate in her care. Please call with any further questions. JOB# [id number]
[2018-10-17 06:00] LABS: ANION GAP 10.7 (7.0-16.0); BUN - UREA NITROGEN 58 mg/dL (7-25); CALCIUM SERUM 8.8 mg/dL (8.6-10.3); CARBON DIOXIDE 21.8 mEq/L (21.0-31.0); CHLORIDE 103 mEq/L (98-107); CREATININE - SERUM 2.3 mg/dL (0.6-1.2); GLUCOSE 105 mg/dL (70-105); POTASSIUM SERUM 3.5 mEq/L (3.5-5.1); SODIUM SERUM 132 mEq/L (136-145)
--- NOTE | 2018-10-17 08:06 | Diagnostic Imaging Report ---
Exam: Paracentesis. HISTORY: Ascites. Findings: Real-time ultrasound examination abdomen performed multiple planes for paracentesis. Approximately 5 cc of ascitic fluid was aspirated and sent to pathology. Patient tolerated procedure well without complications IMPRESSION: Successful right abdominal paracentesis, 500 cc of ascitic fluid obtained and sent to pathology.
[2018-10-17] MEDS: Lactulose 10 Gm/15 mL 30mL UDC PO SCH ×2 (08:32→17:08)
--- NOTE | 2018-10-17 13:29 | General Progress Note ---
Subjective - Review of Systems Service Date: 10/17/18 Subjective: more comfortable, less abd pain, no N/V Objective - Results Result Diagrams: 10/15/18 06:05 10/17/18 05:15 Recent Labs: Laboratory Last Values WBC 6.8 Th/cmm (4.8-10.8) 10/15/18 06:05 RBC 3.03 Mil/cmm (3.80-5.20) L 10/15/18 06:05 Hgb 11.1 gm/dL (12-16) L 10/15/18 06:05 Hct 32.7 % (41.0-60) L 10/15/18 06:05 MCV 108.0 fl (81-100) H 10/15/18 06:05 MCH 36.7 pg (27.0-31.0) H 10/15/18 06:05 MCHC Differential 34.0 pg (28.0-36.0) 10/15/18 06:05 RDW 13.9 % (11.5-20.0) 10/15/18 06:05 Plt Count 177 Th/cmm (150-400) 10/15/18 06:05 MPV 7.6 fl 10/15/18 06:05 Add Manual Diff 10/15/18 06:05 Neutrophils % 79.7 % (40.0-80.0) 10/15/18 06:05 Lymphocytes % 11.2 % (20.0-50.0) L 10/15/18 06:05 Monocytes % 8.7 % (2.0-10.0) 10/15/18 06:05 Eosinophils % 0.3 % (0.0-5.0) 10/15/18 06:05 Basophils % 0.1 % (0.0-2.0) 10/15/18 06:05 Eos Smear Source URINE 10/15/18 23:20 Eos Smear Total Cells NONE SEEN (NONE SEEN) 10/15/18 23:20 PT 11.0 SECONDS (9.5-11.5) 10/15/18 06:05 INR 1.06 (0.5-1.4) 10/15/18 06:05 PTT (Actin FS) 31.4 SECONDS (26.0-38.0) 10/15/18 06:05 Sodium 132 mEq/L (136-145) L 10/17/18 05:15 Potassium 3.5 mEq/L (3.5-5.1) 10/17/18 05:15 Chloride 103 mEq/L (98-107) 10/17/18 05:15 Carbon Dioxide 21.8 mEq/L (21.0-31.0) 10/17/18 05:15 Anion Gap 10.7 (7.0-16.0) 10/17/18 05:15 BUN 58 mg/dL (7-25) H 10/17/18 05:15 Creatinine 2.3 mg/dL (0.6-1.2) H 10/17/18 05:15 Est GFR ( Amer) TNP 10/17/18 05:15 Est GFR (Non-Af Amer) TNP 10/17/18 05:15 BUN/Creatinine Ratio 25.2 10/17/18 05:15 Glucose 105 mg/dL (70-105) 10/17/18 05:15 Whole Bld Lactic Acid 1.95 mmol/L (0.60-1.99) 10/15/18 08:08 Calcium 8.8 mg/dL (8.6-10.3) 10/17/18 05:15 Phosphorus 4.4 mg/dL (2.5-5.0) 10/14/18 13:31 Magnesium 3.5 mg/dL (1.9-2.7) H 10/14/18 13:31 Total Bilirubin 0.8 mg/dL (0.3-1.0) 10/14/18 13:31 AST 32 U/L (13-39) 10/14/18 13:31 ALT 13 U/L (7-52) 10/14/18 13:31 Alkaline Phosphatase 47 U/L (34-104) 10/14/18 13:31 Ammonia 37 umol/L (16-53) 10/15/18 06:05 Total Protein 6.2 gm/dL (6.0-8.3) 10/14/18 13:31 Albumin 2.7 gm/dL (3.7-5.3) L 10/14/18 13:31 Globulin 3.5 gm/dL 10/14/18 13:31 Albumin/Globulin Ratio 0.8 (1.0-1.8) L 10/14/18 13:31 Amylase 122 U/L (29-103) H 10/14/18 13:31 Lipase 190 U/L (11-82) H 10/16/18 05:10 TSH 3.98 uIU/ml (0.34-5.60) 10/14/18 16:31 Urine Source CATH 10/15/18 23:20 Urine Color YELLOW 10/15/18 23:20 Urine Clarity HAZY (CLEAR) 10/15/18 23:20 Urine pH 5.5 (4.6 - 8.0) 10/15/18 23:20 Ur Specific [place] 1.025 (1.005-1.030) 10/15/18 23:20 Urine Protein NEGATIVE mg/dL (NEGATIVE) 10/15/18 23:20 Urine Glucose (UA) NEGATIVE mg/dL (NEGATIVE) 10/15/18 23:20 Urine Ketones TRACE mg/dL (NEGATIVE) 10/15/18 23:20 Urine Blood SMALL (NEGATIVE) H 10/15/18 23:20 Urine Nitrate NEGATIVE (NEGATIVE) 10/15/18 23:20 Urine Bilirubin NEGATIVE (NEGATIVE) 10/15/18 23:20 Urine Urobilinogen 0.2 E.U./dL (0.2 - 1.0) 10/15/18 23:20 Ur Leukocyte Esterase NEGATIVE (NEGATIVE) 10/15/18 23:20 Urine RBC NONE SEEN /hpf (0-5) 10/15/18 23:20 Urine WBC 2-5 /hpf (0-5) 10/15/18 23:20 Ur Epithelial Cells MANY /lpf (FEW) 10/15/18 23:20 Urine Bacteria FEW /hpf (NONE SEEN) 10/15/18 23:20 Ur Random Sodium 61 mmol/L 10/15/18 23:20 Urine Creatinine 71.0 mg/dl (28.0-217.0) 10/15/18 23:20 Microalb/Creat Ratio 56.2 mg/g creat (0.0-30.0) H 10/15/18 23:20 Fluid Source PARACENTHESIS 10/16/18 10:20 Fluid Color PALE YELLOW 10/16/18 10:20 Fluid Appearance CLEAR 10/16/18 10:20 Fluid WBC 33.3 /cumm 10/16/18 10:20 Fluid RBC 106.7 /cumm 10/16/18 10:20 Fluid Neutrophils 10 % 10/16/18 10:20 Fluid Lymphocytes 90 % 10/16/18 10:20 Fluid Monocytes Not Reportable 10/16/18 10:20 - Physical Exam Vitals and I&O: Vital Signs Temp 96.5 F 10/17/18 04:00 Pulse 48 10/17/18 04:00 Resp 18 10/17/18 04:00 BP 93/46 10/17/18 04:00 Pulse Ox 97 10/17/18 04:00 Intake & Output 10/16/18 10/17/18 10/17/18 18:59 06:59 18:59 Intake Total 600 660.5 Output Total 500 Balance 100 660.5 Weight (lbs) 37.195 kg 37.195 kg Intake: Intake, IV Amount 600.5 D5-0.45NS 1,000 ml @ 30 600.5 mls/hr IV .Q24H [facility]PLACED BY [facility] Rx#: [id number] Oral 600 60 Output: Gastric Drainage 500 Other: # Voids 3 4 # Bowel Movements 3 3 Weight Source Bedscale Bedscale Active Medications: Current Medications Acetaminophen/Hydrocodone Bitart ([place] 5mg/325mg) 1 tab PO Q4H PRN PRN Reason: MILD TO MODERATE PAIN Stop: 12/15/18 23:27 Ascorbic Acid (Vitamin C) 500 mg PO DAILY [facility] Stop: 12/15/18 08:59 Last Admin: 10/17/18 08:32 Dose: 500 mg Bisacodyl (Dulcolax 10 Mg Supp) 10 mg RC DAILY PRN PRN Reason: Constipation Stop: 12/14/18 11:31 Last Admin: 10/15/18 13:59 Dose: 10 mg Docusate Sodium (Colace) 250 mg PO DAILY [facility] Stop: 12/15/18 08:59 Last Admin: 10/17/18 08:32 Dose: 250 mg Dextrose/Sodium Chloride (D5-0.45ns) 1,000 mls @ 30 mls/hr IV .Q24H [facility]PL[facility] Stop: 12/14/18 12:59 Last Admin: 10/17/18 02:01 Dose: 30 mls/hr Lactulose (Cephulac) 30 gm PO BID [facility] Stop: 12/15/18 08:59 Last Admin: 10/17/18 08:32 Dose: 30 gm Magnesium Hydroxide (Milk Of Magnesia) 30 ml PO DAILY PRN PRN Reason: Constipation Stop: 12/14/18 13:59 Miscellaneous (Clinical Monitoring) 1 ea MC DAILY PRN PRN Reason: RENAL DOSING Stop: 12/16/18 09:00 Ondansetron HCl (Zofran) 4 mg IV Q6H PRN PRN Reason: Nausea / Vomiting Stop: 12/14/18 01:48 Sodium Phosphate (Fleet Enema) 135 ml RC Q48HR PRN PRN Reason: Constipation Stop: 12/14/18 11:31 Last Admin: 10/15/18 13:59 Dose: 135 ml General: Alert, No acute distress HEENT: Atraumatic, Mucous membr. moist/pink Neck: Supple, JVD Cardiovascular: Regular rate, Normal S1, Normal S2 Lungs: Clear to auscultation Abdomen: Bowel sounds, Soft (less tender), Distended, Other (less tender, decreased distension) Extremities: no Edema Neurological: Sensation intact Skin: Significant lesion (scalded skin abd to left flank) Psych/Mental Status: Mood NL Assessment/Plan - Assessment Assessment: Liver Cirrhosis w/ ascitis Macrocytosis YULIYA on CKD Recurrent Pancratitis Multiple hematomas Scalded Skin Wound Severe Malnutrition - Plan Plan: Lab - Result Diagrams 10/15/18 06:05 10/16/18 05:10 Current Medications Ascorbic Acid (Vitamin C) 500 mg PO DAILY [facility] Stop: 12/15/18 08:59 Last Admin: 10/16/18 10:42 Dose: 500 mg Bisacodyl (Dulcolax 10 Mg Supp) 10 mg RC DAILY PRN PRN Reason: Constipation Stop: 12/14/18 11:31 Last Admin: 10/15/18 13:59 Dose: 10 mg Docusate Sodium (Colace) 250 mg PO DAILY [facility] Stop: 12/15/18 08:59 Last Admin: 10/16/18 10:43 Dose: 250 mg Dextrose/Sodium Chloride (D5-0.45ns) 1,000 mls @ 30 mls/hr IV .Q24H [facility] Stop: 12/14/18 12:59 Last Admin: 10/16/18 06:00 Dose: 30 mls/hr Lactulose (Cephulac) 30 gm PO BID [facility] Stop: 12/15/18 08:59 Last Admin: 10/16/18 10:42 Dose: 30 gm Magnesium Hydroxide (Milk Of Magnesia) 30 ml PO DAILY PRN PRN Reason: Constipation Stop: 12/14/18 13:59 Ondansetron HCl (Zofran) 4 mg IV Q6H PRN PRN Reason: Nausea / Vomiting Stop: 12/14/18 01:48 Sodium Phosphate (Fleet Enema) 135 ml RC Q48HR PRN PRN Reason: Constipation Stop: 12/14/18 11:31 Last Admin: 10/15/18 13:59 Dose: 135 ml Lab - Result Diagrams 10/15/18 06:05 10/17/18 05:15 Bun/Cr improved to 58/2.3. Underwent therapeutic tap, eve 500 ml peritoneal fluid obtained more comfortable f/u electrolytes Nutritional Asmnt/Malnutr-PDOC - Dietary Evaluation Malnutrition Findings (Please click <Entered> for more info): Nutritional Asmnt/Malnutrition Start: 10/15/18 11: 49 Text: Status: Complete Freq: Protocol: Document 10/15/18 11:49 MMULKANG (Rec: 10/15/18 11:56 MMULHERN PANKAJ [email or web address]) Nutritional Asmnt/Malnutrition Patient General Information Nutritional Screening High Risk Consult Diagnosis Ascites, abdominal pain, thrush fecal impaction Pertinent Medical Hx/Surgical Hx Pancreatitis, cholelithiasis, liver cirrhosis, osteopenia, cholecystitis, ascites Subjective Information Patient planned for paracentesis. Per nursing notes, patient needing fecal disimpacion and received fleet enema and suppository. Per family at bedside, patient has had a poor appetite and not eating for >1 week. He attributes this to her constipation and states she usually eats more. She especially will eat when they bring her food from outside. She prefers vanilla flavored supplements. He states she can tolerate regular diet texture without difficulty. patient visually with moderate to severe muscle wasting in temples and clavicles. Current Diet Order/ Nutrition Support Regular Patient / S.O Not Indicated Pertinent Medications Vitamin C, Dulcolax, D5-0.45 NS, colace, zofran, fleet enema Pertinent Labs (10/15) Na 134, BUN 56, Cr 2.3 (10/14) Mg 3.5, alumin 2.7 Nutritional Hx/Data Height 1.47 m Height (Calculated Centimeters) 147.3 Current Weight (lbs) 37.648 kg Weight (Calculated Kilograms) 37.6 Weight (Calculated Grams) 75590.2 [place] Body Weight 95 % [place] Body Weight 87 Body Mass Index (BMI) 17.3 Recent Weight Change No Weight Status Underweight GI Symptoms GI Symptoms Constipation Last BM prior to admissio Difficult in: None Food Allergies No Cultural/Ethnic/Hindu Belief none indicated Usual diet at home unknown Skin Integrity/Comment: Decubitus left leg, bruise right leg, maceration left hip , left abdomen, left back Nutritional Problem 2. Problem Problem Altered GI Function Etiology related to fecal impaction aeb Signs/Symptoms: nursing notes stating patient with impaction, pts family stating patient is uncomfortable and not wanting to eat due to constipation 1. Problem Problem Underweight related to Etiology likely inadequate intake/poor appetite aeb Signs/Symptoms: BMI 17.5 Intervention/Recommendation Comments 1. Continue reulgar diet as tolerated by patient. 2. Continue GI motility agents per MD to assist with constipation, which will help with appetite. 3. Add Ensure Enlive (vanilla) TID with meals to encourage weight gain. Expected Outcomes/Goals Expected Outcomes/Goals Oral intake >75% of meals, weight gain, nutrition related labs normalize
--- NOTE | 2018-10-17 16:57 | Internal Medicine Prog Note ---
Internal Medicine Subjective - Subjective Patient seen and examined:: chart reviewed Patient is:: awake (DOING BETTER , NO PAIN AT THIS TIME ) Per staff patient has:: no adverse event Internal Medicine Objective - Results Result Diagrams: 10/15/18 06:05 10/17/18 05:15 Recent Labs: Laboratory Last Values WBC 6.8 Th/cmm (4.8-10.8) 10/15/18 06:05 RBC 3.03 Mil/cmm (3.80-5.20) L 10/15/18 06:05 Hgb 11.1 gm/dL (12-16) L 10/15/18 06:05 Hct 32.7 % (41.0-60) L 10/15/18 06:05 MCV 108.0 fl (81-100) H 10/15/18 06:05 MCH 36.7 pg (27.0-31.0) H 10/15/18 06:05 MCHC Differential 34.0 pg (28.0-36.0) 10/15/18 06:05 RDW 13.9 % (11.5-20.0) 10/15/18 06:05 Plt Count 177 Th/cmm (150-400) 10/15/18 06:05 MPV 7.6 fl 10/15/18 06:05 Add Manual Diff 10/15/18 06:05 Neutrophils % 79.7 % (40.0-80.0) 10/15/18 06:05 Lymphocytes % 11.2 % (20.0-50.0) L 10/15/18 06:05 Monocytes % 8.7 % (2.0-10.0) 10/15/18 06:05 Eosinophils % 0.3 % (0.0-5.0) 10/15/18 06:05 Basophils % 0.1 % (0.0-2.0) 10/15/18 06:05 Eos Smear Source URINE 10/15/18 23:20 Eos Smear Total Cells NONE SEEN (NONE SEEN) 10/15/18 23:20 PT 11.0 SECONDS (9.5-11.5) 10/15/18 06:05 INR 1.06 (0.5-1.4) 10/15/18 06:05 PTT (Actin FS) 31.4 SECONDS (26.0-38.0) 10/15/18 06:05 Sodium 132 mEq/L (136-145) L 10/17/18 05:15 Potassium 3.5 mEq/L (3.5-5.1) 10/17/18 05:15 Chloride 103 mEq/L (98-107) 10/17/18 05:15 Carbon Dioxide 21.8 mEq/L (21.0-31.0) 10/17/18 05:15 Anion Gap 10.7 (7.0-16.0) 10/17/18 05:15 BUN 58 mg/dL (7-25) H 10/17/18 05:15 Creatinine 2.3 mg/dL (0.6-1.2) H 10/17/18 05:15 Est GFR ( Amer) TNP 10/17/18 05:15 Est GFR (Non-Af Amer) TNP 10/17/18 05:15 BUN/Creatinine Ratio 25.2 10/17/18 05:15 Glucose 105 mg/dL (70-105) 10/17/18 05:15 Whole Bld Lactic Acid 1.95 mmol/L (0.60-1.99) 10/15/18 08:08 Calcium 8.8 mg/dL (8.6-10.3) 10/17/18 05:15 Phosphorus 4.4 mg/dL (2.5-5.0) 10/14/18 13:31 Magnesium 3.5 mg/dL (1.9-2.7) H 10/14/18 13:31 Total Bilirubin 0.8 mg/dL (0.3-1.0) 10/14/18 13:31 AST 32 U/L (13-39) 10/14/18 13:31 ALT 13 U/L (7-52) 10/14/18 13:31 Alkaline Phosphatase 47 U/L (34-104) 10/14/18 13:31 Ammonia 37 umol/L (16-53) 10/15/18 06:05 Total Protein 6.2 gm/dL (6.0-8.3) 10/14/18 13:31 Albumin 2.7 gm/dL (3.7-5.3) L 10/14/18 13:31 Globulin 3.5 gm/dL 10/14/18 13:31 Albumin/Globulin Ratio 0.8 (1.0-1.8) L 10/14/18 13:31 Amylase 122 U/L (29-103) H 10/14/18 13:31 Lipase 190 U/L (11-82) H 10/16/18 05:10 TSH 3.98 uIU/ml (0.34-5.60) 10/14/18 16:31 Urine Source CATH 10/15/18 23:20 Urine Color YELLOW 10/15/18 23:20 Urine Clarity HAZY (CLEAR) 10/15/18 23:20 Urine pH 5.5 (4.6 - 8.0) 10/15/18 23:20 Ur Specific [place] 1.025 (1.005-1.030) 10/15/18 23:20 Urine Protein NEGATIVE mg/dL (NEGATIVE) 10/15/18 23:20 Urine Glucose (UA) NEGATIVE mg/dL (NEGATIVE) 10/15/18 23:20 Urine Ketones TRACE mg/dL (NEGATIVE) 10/15/18 23:20 Urine Blood SMALL (NEGATIVE) H 10/15/18 23:20 Urine Nitrate NEGATIVE (NEGATIVE) 10/15/18 23:20 Urine Bilirubin NEGATIVE (NEGATIVE) 10/15/18 23:20 Urine Urobilinogen 0.2 E.U./dL (0.2 - 1.0) 10/15/18 23:20 Ur Leukocyte Esterase NEGATIVE (NEGATIVE) 10/15/18 23:20 Urine RBC NONE SEEN /hpf (0-5) 10/15/18 23:20 Urine WBC 2-5 /hpf (0-5) 10/15/18 23:20 Ur Epithelial Cells MANY /lpf (FEW) 10/15/18 23:20 Urine Bacteria FEW /hpf (NONE SEEN) 10/15/18 23:20 Ur Random Sodium 61 mmol/L 10/15/18 23:20 Urine Creatinine 71.0 mg/dl (28.0-217.0) 10/15/18 23:20 Microalb/Creat Ratio 56.2 mg/g creat (0.0-30.0) H 10/15/18 23:20 Fluid Source PARACENTHESIS 10/16/18 10:20 Fluid Color PALE YELLOW 10/16/18 10:20 Fluid Appearance CLEAR 10/16/18 10:20 Fluid WBC 33.3 /cumm 10/16/18 10:20 Fluid RBC 106.7 /cumm 10/16/18 10:20 Fluid Neutrophils 10 % 10/16/18 10:20 Fluid Lymphocytes 90 % 10/16/18 10:20 Fluid Monocytes Not Reportable 10/16/18 10:20 - Physical Exam Vitals and I&O: Vital Signs Temp 96.1 F 10/17/18 16:21 Pulse 66 10/17/18 16:21 Resp 17 10/17/18 16:21 BP 104/65 10/17/18 16:21 Pulse Ox 95 10/17/18 16:21 Intake & Output 10/16/18 10/17/18 10/17/18 18:59 06:59 18:59 Intake Total 600 660.5 Output Total 500 Balance 100 660.5 Weight (lbs) 37.195 kg 37.195 kg Intake: Intake, IV Amount 600.5 D5-0.45NS 1,000 ml @ 30 600.5 mls/hr IV .Q24H [facility] Rx#: [id number] Oral 600 60 Output: Gastric Drainage 500 Other: # Voids 3 4 # Bowel Movements 3 3 Stool Characteristics Soft Liquid Weight Source Bedscale Bedscale Active Medications: Current Medications Acetaminophen/Hydrocodone Bitart ([place] 5mg/325mg) 1 tab PO Q4H PRN PRN Reason: MILD TO MODERATE PAIN Stop: 12/15/18 23:27 Ascorbic Acid (Vitamin C) 500 mg PO DAILY [facility] Stop: 12/15/18 08:59 Last Admin: 10/17/18 08:32 Dose: 500 mg Bisacodyl (Dulcolax 10 Mg Supp) 10 mg RC DAILY PRN PRN Reason: Constipation Stop: 12/14/18 11:31 Last Admin: 10/15/18 13:59 Dose: 10 mg Docusate Sodium (Colace) 250 mg PO DAILY [facility] Stop: 12/15/18 08:59 Last Admin: 10/17/18 08:32 Dose: 250 mg Dextrose/Sodium Chloride (D5-0.45ns) 1,000 mls @ 30 mls/hr IV .Q24H [facility] Stop: 12/14/18 12:59 Last Admin: 10/17/18 02:01 Dose: 30 mls/hr Lactulose (Cephulac) 30 gm PO BID [facility] Stop: 12/15/18 08:59 Last Admin: 10/17/18 08:32 Dose: 30 gm Magnesium Hydroxide (Milk Of Magnesia) 30 ml PO DAILY PRN PRN Reason: Constipation Stop: 12/14/18 13:59 Miscellaneous (Clinical Monitoring) 1 ea MC DAILY PRN PRN Reason: RENAL DOSING Stop: 12/16/18 09:00 Ondansetron HCl (Zofran) 4 mg IV Q6H PRN PRN Reason: Nausea / Vomiting Stop: 12/14/18 01:48 Sodium Phosphate (Fleet Enema) 135 ml RC Q48HR PRN PRN Reason: Constipation Stop: 12/14/18 11:31 Last Admin: 10/15/18 13:59 Dose: 135 ml General: weak, alert HEENT: NC/AT Neck: Supple Lungs: CTAB Cardiovascular: RRR, Normal S1, Normal S2 Abdomen: soft Extremities: clear Neurological: no change Internal Medicine Assmt/Plan - Assessment Assessment: Liver Cirrhosis w/ ascitis Macrocytosis YULIYA on CKD Recurrent Pancratitis Multiple hematomas Scalded Skin Wound Severe Malnutrition - Plan Plan: PER ORDER SHEET Nutritional Asmnt/Malnutr-PDOC - Dietary Evaluation Malnutrition Findings (Please click <Entered> for more info): Nutritional Asmnt/Malnutrition Start: 10/15/18 11: 49 Text: Status: Complete Freq: Protocol: Document 10/15/18 11:49 MMJUSTIN (Rec: 10/15/18 11:56 [email or web address] LIRA- [email or web address]) Nutritional Asmnt/Malnutrition Patient General Information Nutritional Screening High Risk Consult Diagnosis Ascites, abdominal pain, thrush fecal impaction Pertinent Medical Hx/Surgical Hx Pancreatitis, cholelithiasis, liver cirrhosis, osteopenia, cholecystitis, ascites Subjective Information Patient planned for paracentesis. Per nursing notes, patient needing fecal disimpacion and received fleet enema and suppository. Per family at bedside, patient has had a poor appetite and not eating for >1 week. He attributes this to her constipation and states she usually eats more. She especially will eat when they bring her food from outside. She prefers vanilla flavored supplements. He states she can tolerate regular diet texture without difficulty. patient visually with moderate to severe muscle wasting in temples and clavicles. Current Diet Order/ Nutrition Support Regular Patient / S.O Not Indicated Pertinent Medications Vitamin C, Dulcolax, D5-0.45 NS, colace, zofran, fleet enema Pertinent Labs (10/15) Na 134, BUN 56, Cr 2.3 (10/14) Mg 3.5, alumin 2.7 Nutritional Hx/Data Height 1.47 m Height (Calculated Centimeters) 147.3 Current Weight (lbs) 37.648 kg Weight (Calculated Kilograms) 37.6 Weight (Calculated Grams) 47176.2 [place] Body Weight 95 % [place] Body Weight 87 Body Mass Index (BMI) 17.3 Recent Weight Change No Weight Status Underweight GI Symptoms GI Symptoms Constipation Last BM prior to admissio Difficult in: None Food Allergies No Cultural/Ethnic/Adventism Belief none indicated Usual diet at home unknown Skin Integrity/Comment: Decubitus left leg, bruise right leg, maceration left hip , left abdomen, left back Nutritional Problem 2. Problem Problem Altered GI Function Etiology related to fecal impaction aeb Signs/Symptoms: nursing notes stating patient with impaction, pts family stating patient is uncomfortable and not wanting to eat due to constipation 1. Problem Problem Underweight related to Etiology likely inadequate intake/poor appetite aeb Signs/Symptoms: BMI 17.5 Intervention/Recommendation Comments 1. Continue reulgar diet as tolerated by patient. 2. Continue GI motility agents per MD to assist with constipation, which will help with appetite. 3. Add Ensure Enlive (vanilla) TID with meals to encourage weight gain. Expected Outcomes/Goals Expected Outcomes/Goals Oral intake >75% of meals, weight gain, nutrition related labs normalize
--- NOTE | 2018-10-17 19:14 | GI Progress Note ---
Subjective - Review of Systems Service Date: 10/17/18 Subjective: GI NOTE EVENTS NOTED. MORE AWAKE. FEELS BETTER. LILIBETH ORAL DIET. Objective - Results Result Diagrams: 10/15/18 06:05 10/17/18 05:15 Recent Labs: Laboratory Last Values WBC 6.8 Th/cmm (4.8-10.8) 10/15/18 06:05 RBC 3.03 Mil/cmm (3.80-5.20) L 10/15/18 06:05 Hgb 11.1 gm/dL (12-16) L 10/15/18 06:05 Hct 32.7 % (41.0-60) L 10/15/18 06:05 MCV 108.0 fl (81-100) H 10/15/18 06:05 MCH 36.7 pg (27.0-31.0) H 10/15/18 06:05 MCHC Differential 34.0 pg (28.0-36.0) 10/15/18 06:05 RDW 13.9 % (11.5-20.0) 10/15/18 06:05 Plt Count 177 Th/cmm (150-400) 10/15/18 06:05 MPV 7.6 fl 10/15/18 06:05 Add Manual Diff 10/15/18 06:05 Neutrophils % 79.7 % (40.0-80.0) 10/15/18 06:05 Lymphocytes % 11.2 % (20.0-50.0) L 10/15/18 06:05 Monocytes % 8.7 % (2.0-10.0) 10/15/18 06:05 Eosinophils % 0.3 % (0.0-5.0) 10/15/18 06:05 Basophils % 0.1 % (0.0-2.0) 10/15/18 06:05 Eos Smear Source URINE 10/15/18 23:20 Eos Smear Total Cells NONE SEEN (NONE SEEN) 10/15/18 23:20 PT 11.0 SECONDS (9.5-11.5) 10/15/18 06:05 INR 1.06 (0.5-1.4) 10/15/18 06:05 PTT (Actin FS) 31.4 SECONDS (26.0-38.0) 10/15/18 06:05 Sodium 132 mEq/L (136-145) L 10/17/18 05:15 Potassium 3.5 mEq/L (3.5-5.1) 10/17/18 05:15 Chloride 103 mEq/L (98-107) 10/17/18 05:15 Carbon Dioxide 21.8 mEq/L (21.0-31.0) 10/17/18 05:15 Anion Gap 10.7 (7.0-16.0) 10/17/18 05:15 BUN 58 mg/dL (7-25) H 10/17/18 05:15 Creatinine 2.3 mg/dL (0.6-1.2) H 10/17/18 05:15 Est GFR ( Amer) TNP 10/17/18 05:15 Est GFR (Non-Af Amer) TNP 10/17/18 05:15 BUN/Creatinine Ratio 25.2 10/17/18 05:15 Glucose 105 mg/dL (70-105) 10/17/18 05:15 Whole Bld Lactic Acid 1.95 mmol/L (0.60-1.99) 10/15/18 08:08 Calcium 8.8 mg/dL (8.6-10.3) 10/17/18 05:15 Phosphorus 4.4 mg/dL (2.5-5.0) 10/14/18 13:31 Magnesium 3.5 mg/dL (1.9-2.7) H 10/14/18 13:31 Total Bilirubin 0.8 mg/dL (0.3-1.0) 10/14/18 13:31 AST 32 U/L (13-39) 10/14/18 13:31 ALT 13 U/L (7-52) 10/14/18 13:31 Alkaline Phosphatase 47 U/L (34-104) 10/14/18 13:31 Ammonia 37 umol/L (16-53) 10/15/18 06:05 Total Protein 6.2 gm/dL (6.0-8.3) 10/14/18 13:31 Albumin 2.7 gm/dL (3.7-5.3) L 10/14/18 13:31 Globulin 3.5 gm/dL 10/14/18 13:31 Albumin/Globulin Ratio 0.8 (1.0-1.8) L 10/14/18 13:31 Amylase 122 U/L (29-103) H 10/14/18 13:31 Lipase 190 U/L (11-82) H 10/16/18 05:10 TSH 3.98 uIU/ml (0.34-5.60) 10/14/18 16:31 Urine Source CATH 10/15/18 23:20 Urine Color YELLOW 10/15/18 23:20 Urine Clarity HAZY (CLEAR) 10/15/18 23:20 Urine pH 5.5 (4.6 - 8.0) 10/15/18 23:20 Ur Specific [place] 1.025 (1.005-1.030) 10/15/18 23:20 Urine Protein NEGATIVE mg/dL (NEGATIVE) 10/15/18 23:20 Urine Glucose (UA) NEGATIVE mg/dL (NEGATIVE) 10/15/18 23:20 Urine Ketones TRACE mg/dL (NEGATIVE) 10/15/18 23:20 Urine Blood SMALL (NEGATIVE) H 10/15/18 23:20 Urine Nitrate NEGATIVE (NEGATIVE) 10/15/18 23:20 Urine Bilirubin NEGATIVE (NEGATIVE) 10/15/18 23:20 Urine Urobilinogen 0.2 E.U./dL (0.2 - 1.0) 10/15/18 23:20 Ur Leukocyte Esterase NEGATIVE (NEGATIVE) 10/15/18 23:20 Urine RBC NONE SEEN /hpf (0-5) 10/15/18 23:20 Urine WBC 2-5 /hpf (0-5) 10/15/18 23:20 Ur Epithelial Cells MANY /lpf (FEW) 10/15/18 23:20 Urine Bacteria FEW /hpf (NONE SEEN) 10/15/18 23:20 Ur Random Sodium 61 mmol/L 10/15/18 23:20 Urine Creatinine 71.0 mg/dl (28.0-217.0) 10/15/18 23:20 Microalb/Creat Ratio 56.2 mg/g creat (0.0-30.0) H 10/15/18 23:20 Fluid Source PARACENTHESIS 10/16/18 10:20 Fluid Color PALE YELLOW 10/16/18 10:20 Fluid Appearance CLEAR 10/16/18 10:20 Fluid WBC 33.3 /cumm 10/16/18 10:20 Fluid RBC 106.7 /cumm 10/16/18 10:20 Fluid Neutrophils 10 % 10/16/18 10:20 Fluid Lymphocytes 90 % 10/16/18 10:20 Fluid Monocytes Not Reportable 10/16/18 10:20 - Physical Exam Vitals and I&O: Vital Signs Temp 96.1 F 10/17/18 16:21 Pulse 66 10/17/18 16:21 Resp 17 10/17/18 16:21 BP 104/65 10/17/18 16:21 Pulse Ox 95 10/17/18 16:21 Intake & Output 10/17/18 10/17/18 10/18/18 06:59 18:59 06:59 Intake Total 660.5 300 Balance 660.5 300 Weight (lbs) 37.195 kg 38.646 kg Intake: Intake, IV Amount 600.5 D5-0.45NS 1,000 ml @ 30 600.5 mls/hr IV .Q24H [facility] Rx#: [id number] Oral 60 300 Other: # Voids 4 3 # Bowel Movements 3 4 Stool Characteristics Soft Liquid Weight Source Bedscale Bedscale Active Medications: Current Medications Acetaminophen/Hydrocodone Bitart ([place] 5mg/325mg) 1 tab PO Q4H PRN PRN Reason: MILD TO MODERATE PAIN Stop: 12/15/18 23:27 Ascorbic Acid (Vitamin C) 500 mg PO DAILY [facility] Stop: 12/15/18 08:59 Last Admin: 10/17/18 08:32 Dose: 500 mg Bisacodyl (Dulcolax 10 Mg Supp) 10 mg RC DAILY PRN PRN Reason: Constipation Stop: 12/14/18 11:31 Last Admin: 10/15/18 13:59 Dose: 10 mg Docusate Sodium (Colace) 250 mg PO DAILY [facility] Stop: 12/15/18 08:59 Last Admin: 10/17/18 08:32 Dose: 250 mg Dextrose/Sodium Chloride (D5-0.45ns) 1,000 mls @ 30 mls/hr IV .Q24H [facility] Stop: 12/14/18 12:59 Last Admin: 10/17/18 02:01 Dose: 30 mls/hr Lactulose (Cephulac) 30 gm PO BID [facility] Stop: 12/15/18 08:59 Last Admin: 10/17/18 17:08 Dose: 30 gm Magnesium Hydroxide (Milk Of Magnesia) 30 ml PO DAILY PRN PRN Reason: Constipation Stop: 12/14/18 13:59 Miscellaneous (Clinical Monitoring) 1 ea MC DAILY PRN PRN Reason: RENAL DOSING Stop: 12/16/18 09:00 Ondansetron HCl (Zofran) 4 mg IV Q6H PRN PRN Reason: Nausea / Vomiting Stop: 12/14/18 01:48 Sodium Phosphate (Fleet Enema) 135 ml RC Q48HR PRN PRN Reason: Constipation Stop: 12/14/18 11:31 Last Admin: 10/15/18 13:59 Dose: 135 ml General: No acute distress HEENT: Atraumatic Neck: Supple Cardiovascular: Regular rate Lungs: Normal air movement Abdomen: Bowel sounds, Soft (less tender), Other (MILD DISTENSION), no Tender Extremities: no Edema Assessment/Plan - Assessment Assessment: IMPRESSION: 1. CIRRHOSIS, DECOMPENSATED. 2. ASCITES S/P PARACENTESIS - FLUID NEG FOR SBP PER WBC. 3. HEPATIC ENCEPHALOPATHY. 4. CONSTIPATION, BETTER. 5. CKD. RECS: 1. 2 GM NA DIET. 2. LACTULOSE. 3. ADD RIFAXIMIN. 4. PARACENTESIS NEEDED. 5. DIURESIS TOLERATED BY CREATININE - PER RENAL.
[2018-10-18 05:14] LABS: % BASOPHILS 0.9 % (0.0-2.0); % EOSINOPHILS 0.7 % (0.0-5.0); % LYMPHOCYTES 18.6 % (20.0-50.0); % MONOCYTES 7.8 % (2.0-10.0); BASOPHILE ABSOLUTE 0.1 Th/cumm (0-0.2); HEMATOCRIT 31.9 % (41.0-60); HEMOGLOBIN 10.8 gm/dL (12-16); MEAN CORPUSCULAR HEMOGLOBIN 36.4 pg (27.0-31.0); MEAN CORPUSCULAR HGB CONC 33.7 pg (28.0-36.0); MEAN PLATELET VOLUME 7.6 fl; MONOCYTE ABSOLUTE 0.4 Th/cmm (0.3-1.0); NEUTROPHILE ABSOLUTE 4.1 Th/cmm (1.8-8.0); PLATELET COUNT 164 Th/cmm (150-400); RED BLOOD COUNT 2.95 Mil/cmm (3.80-5.20); RED CELL DISTRIBUTION WIDTH 13.7 % (11.5-20.0); WHITE BLOOD COUNT 5.6 Th/cmm (4.8-10.8)
[2018-10-18 05:34] LABS: ALB/GLOB RATIO 0.8 (1.0-1.8); ALBUMIN 2.4 gm/dL (3.7-5.3); ALKALINE PHOSPHATASE 58 U/L (34-104); ANION GAP 10.7 (7.0-16.0); BILIRUBIN,TOTAL 0.5 mg/dL (0.3-1.0); BUN - UREA NITROGEN 54 mg/dL (7-25); CALCIUM SERUM 8.9 mg/dL (8.6-10.3); CARBON DIOXIDE 22.9 mEq/L (21.0-31.0); CHLORIDE 103 mEq/L (98-107); CREATININE - SERUM 1.9 mg/dL (0.6-1.2); GLUCOSE 110 mg/dL (70-105); POTASSIUM SERUM 3.6 mEq/L (3.5-5.1); SGOT 27 U/L (13-39); SGPT/ALT 13 U/L (7-52); SODIUM SERUM 133 mEq/L (136-145); TOTAL PROTEIN,SERUM 5.3 gm/dL (6.0-8.3)
[2018-10-18] MEDS: D5-0.45NS 1,000 ML IV SCH (05:47)
[2018-10-18] MEDS ORDERED: Venelex 60gm Tube TP SCH (09:00)
--- NOTE | 2018-10-18 09:04 | GI Progress Note ---
Subjective - Review of Systems Service Date: 10/18/18 Subjective: GI NOTE EVENTS NOTED. MORE AWAKE. LILIBETH ORAL DIET. Objective - Results Result Diagrams: 10/18/18 04:50 10/18/18 04:50 Recent Labs: Laboratory Last Values WBC 5.6 Th/cmm (4.8-10.8) 10/18/18 04:50 RBC 2.95 Mil/cmm (3.80-5.20) L 10/18/18 04:50 Hgb 10.8 gm/dL (12-16) L 10/18/18 04:50 Hct 31.9 % (41.0-60) L 10/18/18 04:50 MCV 108.0 fl (81-100) H 10/18/18 04:50 MCH 36.4 pg (27.0-31.0) H 10/18/18 04:50 MCHC Differential 33.7 pg (28.0-36.0) 10/18/18 04:50 RDW 13.7 % (11.5-20.0) 10/18/18 04:50 Plt Count 164 Th/cmm (150-400) 10/18/18 04:50 MPV 7.6 fl 10/18/18 04:50 Add Manual Diff 10/15/18 06:05 Neutrophils % 72.0 % (40.0-80.0) 10/18/18 04:50 Lymphocytes % 18.6 % (20.0-50.0) L 10/18/18 04:50 Monocytes % 7.8 % (2.0-10.0) 10/18/18 04:50 Eosinophils % 0.7 % (0.0-5.0) 10/18/18 04:50 Basophils % 0.9 % (0.0-2.0) 10/18/18 04:50 Eos Smear Source URINE 10/15/18 23:20 Eos Smear Total Cells NONE SEEN (NONE SEEN) 10/15/18 23:20 PT 11.0 SECONDS (9.5-11.5) 10/15/18 06:05 INR 1.06 (0.5-1.4) 10/15/18 06:05 PTT (Actin FS) 31.4 SECONDS (26.0-38.0) 10/15/18 06:05 Sodium 133 mEq/L (136-145) L 10/18/18 04:50 Potassium 3.6 mEq/L (3.5-5.1) 10/18/18 04:50 Chloride 103 mEq/L (98-107) 10/18/18 04:50 Carbon Dioxide 22.9 mEq/L (21.0-31.0) 10/18/18 04:50 Anion Gap 10.7 (7.0-16.0) 10/18/18 04:50 BUN 54 mg/dL (7-25) H 10/18/18 04:50 Creatinine 1.9 mg/dL (0.6-1.2) H 10/18/18 04:50 Est GFR ( Amer) TNP 10/18/18 04:50 Est GFR (Non-Af Amer) TNP 10/18/18 04:50 BUN/Creatinine Ratio 28.4 10/18/18 04:50 Glucose 110 mg/dL (70-105) H 10/18/18 04:50 Whole Bld Lactic Acid 1.95 mmol/L (0.60-1.99) 10/15/18 08:08 Calcium 8.9 mg/dL (8.6-10.3) 10/18/18 04:50 Phosphorus 4.4 mg/dL (2.5-5.0) 10/14/18 13:31 Magnesium 3.5 mg/dL (1.9-2.7) H 10/14/18 13:31 Total Bilirubin 0.5 mg/dL (0.3-1.0) 10/18/18 04:50 AST 27 U/L (13-39) 10/18/18 04:50 ALT 13 U/L (7-52) 10/18/18 04:50 Alkaline Phosphatase 58 U/L (34-104) 10/18/18 04:50 Ammonia 37 umol/L (16-53) 10/15/18 06:05 Total Protein 5.3 gm/dL (6.0-8.3) L 10/18/18 04:50 Albumin 2.4 gm/dL (3.7-5.3) L 10/18/18 04:50 Globulin 2.9 gm/dL 10/18/18 04:50 Albumin/Globulin Ratio 0.8 (1.0-1.8) L 10/18/18 04:50 Amylase 122 U/L (29-103) H 10/14/18 13:31 Lipase 190 U/L (11-82) H 10/16/18 05:10 TSH 3.98 uIU/ml (0.34-5.60) 10/14/18 16:31 Urine Source CATH 10/15/18 23:20 Urine Color YELLOW 10/15/18 23:20 Urine Clarity HAZY (CLEAR) 10/15/18 23:20 Urine pH 5.5 (4.6 - 8.0) 10/15/18 23:20 Ur Specific [place] 1.025 (1.005-1.030) 10/15/18 23:20 Urine Protein NEGATIVE mg/dL (NEGATIVE) 10/15/18 23:20 Urine Glucose (UA) NEGATIVE mg/dL (NEGATIVE) 10/15/18 23:20 Urine Ketones TRACE mg/dL (NEGATIVE) 10/15/18 23:20 Urine Blood SMALL (NEGATIVE) H 10/15/18 23:20 Urine Nitrate NEGATIVE (NEGATIVE) 10/15/18 23:20 Urine Bilirubin NEGATIVE (NEGATIVE) 10/15/18 23:20 Urine Urobilinogen 0.2 E.U./dL (0.2 - 1.0) 10/15/18 23:20 Ur Leukocyte Esterase NEGATIVE (NEGATIVE) 10/15/18 23:20 Urine RBC NONE SEEN /hpf (0-5) 10/15/18 23:20 Urine WBC 2-5 /hpf (0-5) 10/15/18 23:20 Ur Epithelial Cells MANY /lpf (FEW) 10/15/18 23:20 Urine Bacteria FEW /hpf (NONE SEEN) 10/15/18 23:20 Ur Random Sodium 61 mmol/L 10/15/18 23:20 Urine Creatinine 71.0 mg/dl (28.0-217.0) 10/15/18 23:20 Microalb/Creat Ratio 56.2 mg/g creat (0.0-30.0) H 10/15/18 23:20 Fluid Source PARACENTHESIS 10/16/18 10:20 Fluid Color PALE YELLOW 10/16/18 10:20 Fluid Appearance CLEAR 10/16/18 10:20 Fluid WBC 33.3 /cumm 10/16/18 10:20 Fluid RBC 106.7 /cumm 10/16/18 10:20 Fluid Neutrophils 10 % 10/16/18 10:20 Fluid Lymphocytes 90 % 10/16/18 10:20 Fluid Monocytes Not Reportable 10/16/18 10:20 - Physical Exam Vitals and I&O: Vital Signs Temp 98.2 F 10/18/18 04:00 Pulse 65 10/18/18 04:00 Resp 18 10/18/18 04:00 BP 125/59 10/18/18 04:00 Pulse Ox 98 10/18/18 04:00 Intake & Output 10/17/18 10/18/18 10/18/18 18:59 06:59 18:59 Intake Total 300 893 Balance 300 893 Weight (lbs) 38.646 kg 38.646 kg Intake: Intake, IV Amount 833 D5-0.45NS 1,000 ml @ 30 833 mls/hr IV .Q24H [facility] Rx#: [id number] Oral 300 60 Other: # Voids 3 2 # Bowel Movements 4 0 Stool Characteristics Soft Liquid Weight Source Bedscale Bedscale Active Medications: Current Medications Acetaminophen/Hydrocodone Bitart ([place] 5mg/325mg) 1 tab PO Q4H PRN PRN Reason: MILD TO MODERATE PAIN Stop: 12/15/18 23:27 Ascorbic Acid (Vitamin C) 500 mg PO DAILY [facility] Stop: 12/15/18 08:59 Last Admin: 10/17/18 08:32 Dose: 500 mg Bisacodyl (Dulcolax 10 Mg Supp) 10 mg RC DAILY PRN PRN Reason: Constipation Stop: 12/14/18 11:31 Last Admin: 10/15/18 13:59 Dose: 10 mg [place] Oil/[place] Balsam/Trypsin (Venelex) 1 appl TP DAILY [facility] Stop: 12/17/18 08:59 Docusate Sodium (Colace) 250 mg PO DAILY [facility] Stop: 12/15/18 08:59 Last Admin: 10/17/18 08:32 Dose: 250 mg Dextrose/Sodium Chloride (D5-0.45ns) 1,000 mls @ 30 mls/hr IV .Q24H [facility] Stop: 12/14/18 12:59 Last Admin: 10/18/18 05:47 Dose: 30 mls/hr Lactulose (Cephulac) 30 gm PO BID CONSTANTIN Stop: 12/15/18 08:59 Last Admin: 10/17/18 17:08 Dose: 30 gm Magnesium Hydroxide (Milk Of Magnesia) 30 ml PO DAILY PRN PRN Reason: Constipation Stop: 12/14/18 13:59 Miscellaneous (Clinical Monitoring) 1 ea MC DAILY PRN PRN Reason: RENAL DOSING Stop: 12/16/18 09:00 Ondansetron HCl (Zofran) 4 mg IV Q6H PRN PRN Reason: Nausea / Vomiting Stop: 12/14/18 01:48 Rifaximin (Xifaxan) 550 mg PO BID CONSTANTIN Stop: 12/16/18 20:59 Last Admin: 10/17/18 20:51 Dose: 550 mg Sodium Phosphate (Fleet Enema) 135 ml RC Q48HR PRN PRN Reason: Constipation Stop: 12/14/18 11:31 Last Admin: 10/15/18 13:59 Dose: 135 ml General: No acute distress HEENT: Atraumatic Neck: Supple Cardiovascular: Regular rate Lungs: Normal air movement Abdomen: Bowel sounds, Soft (less tender), no Tender Extremities: no Edema Neurological: Sensation intact Skin: Significant lesion (scalded skin abd to left flank) Psych/Mental Status: Mood NL Assessment/Plan - Assessment Assessment: IMPRESSION: 1. CIRRHOSIS, DECOMPENSATED. ?CAUSE. 2. ASCITES S/P PARACENTESIS - FLUID NEG FOR SBP PER WBC. 3. HEPATIC ENCEPHALOPATHY. 4. CONSTIPATION, BETTER. 5. CKD. RECS: 1. 2 GM NA DIET. 2. LACTULOSE. 3. RIFAXIMIN. 4. PARACENTESIS NEEDED. 5. DIURESIS TOLERATED BY CREATININE - PER RENAL. 6. CHECK LIVER LABS. GI VO STABLE WITH OUTPT GI CLINIC F/U.
[2018-10-18] MEDS: Lactulose 10 Gm/15 mL 30mL UDC PO SCH ×3 (09:19→16:16)
[2018-10-18 12:12] LABS: HEP A AB IGM Negative (Negative); HEP B CORE IGM Negative (Negative); HEP B SURFACE AG QL Positive (Negative); HEP C ANTIBODY <0.1 s/co ratio (0.0-0.9)
--- NOTE | 2018-10-18 13:00 | Internal Medicine Prog Note ---
Internal Medicine Subjective - Subjective Service Date: 10/18/18 (denies any pain) Patient is:: awake (DOING BETTER , NO PAIN AT THIS TIME ) Per staff patient has:: no adverse event Internal Medicine Objective - Results Result Diagrams: 10/18/18 04:50 10/18/18 04:50 Recent Labs: Laboratory Last Values WBC 5.6 Th/cmm (4.8-10.8) 10/18/18 04:50 RBC 2.95 Mil/cmm (3.80-5.20) L 10/18/18 04:50 Hgb 10.8 gm/dL (12-16) L 10/18/18 04:50 Hct 31.9 % (41.0-60) L 10/18/18 04:50 MCV 108.0 fl (81-100) H 10/18/18 04:50 MCH 36.4 pg (27.0-31.0) H 10/18/18 04:50 MCHC Differential 33.7 pg (28.0-36.0) 10/18/18 04:50 RDW 13.7 % (11.5-20.0) 10/18/18 04:50 Plt Count 164 Th/cmm (150-400) 10/18/18 04:50 MPV 7.6 fl 10/18/18 04:50 Add Manual Diff 10/15/18 06:05 Neutrophils % 72.0 % (40.0-80.0) 10/18/18 04:50 Lymphocytes % 18.6 % (20.0-50.0) L 10/18/18 04:50 Monocytes % 7.8 % (2.0-10.0) 10/18/18 04:50 Eosinophils % 0.7 % (0.0-5.0) 10/18/18 04:50 Basophils % 0.9 % (0.0-2.0) 10/18/18 04:50 Eos Smear Source URINE 10/15/18 23:20 Eos Smear Total Cells NONE SEEN (NONE SEEN) 10/15/18 23:20 PT 11.0 SECONDS (9.5-11.5) 10/15/18 06:05 INR 1.06 (0.5-1.4) 10/15/18 06:05 PTT (Actin FS) 31.4 SECONDS (26.0-38.0) 10/15/18 06:05 Sodium 133 mEq/L (136-145) L 10/18/18 04:50 Potassium 3.6 mEq/L (3.5-5.1) 10/18/18 04:50 Chloride 103 mEq/L (98-107) 10/18/18 04:50 Carbon Dioxide 22.9 mEq/L (21.0-31.0) 10/18/18 04:50 Anion Gap 10.7 (7.0-16.0) 10/18/18 04:50 BUN 54 mg/dL (7-25) H 10/18/18 04:50 Creatinine 1.9 mg/dL (0.6-1.2) H 10/18/18 04:50 Est GFR ( Amer) TNP 10/18/18 04:50 Est GFR (Non-Af Amer) TNP 10/18/18 04:50 BUN/Creatinine Ratio 28.4 10/18/18 04:50 Glucose 110 mg/dL (70-105) H 10/18/18 04:50 Whole Bld Lactic Acid 1.95 mmol/L (0.60-1.99) 10/15/18 08:08 Calcium 8.9 mg/dL (8.6-10.3) 10/18/18 04:50 Phosphorus 4.4 mg/dL (2.5-5.0) 10/14/18 13:31 Magnesium 3.5 mg/dL (1.9-2.7) H 10/14/18 13:31 Total Bilirubin 0.5 mg/dL (0.3-1.0) 10/18/18 04:50 AST 27 U/L (13-39) 10/18/18 04:50 ALT 13 U/L (7-52) 10/18/18 04:50 Alkaline Phosphatase 58 U/L (34-104) 10/18/18 04:50 Ammonia 37 umol/L (16-53) 10/15/18 06:05 Total Protein 5.3 gm/dL (6.0-8.3) L 10/18/18 04:50 Albumin 2.4 gm/dL (3.7-5.3) L 10/18/18 04:50 Globulin 2.9 gm/dL 10/18/18 04:50 Albumin/Globulin Ratio 0.8 (1.0-1.8) L 10/18/18 04:50 Amylase 122 U/L (29-103) H 10/14/18 13:31 Lipase 190 U/L (11-82) H 10/16/18 05:10 TSH 3.98 uIU/ml (0.34-5.60) 10/14/18 16:31 Urine Source CATH 10/15/18 23:20 Urine Color YELLOW 10/15/18 23:20 Urine Clarity HAZY (CLEAR) 10/15/18 23:20 Urine pH 5.5 (4.6 - 8.0) 10/15/18 23:20 Ur Specific [place] 1.025 (1.005-1.030) 10/15/18 23:20 Urine Protein NEGATIVE mg/dL (NEGATIVE) 10/15/18 23:20 Urine Glucose (UA) NEGATIVE mg/dL (NEGATIVE) 10/15/18 23:20 Urine Ketones TRACE mg/dL (NEGATIVE) 10/15/18 23:20 Urine Blood SMALL (NEGATIVE) H 10/15/18 23:20 Urine Nitrate NEGATIVE (NEGATIVE) 10/15/18 23:20 Urine Bilirubin NEGATIVE (NEGATIVE) 10/15/18 23:20 Urine Urobilinogen 0.2 E.U./dL (0.2 - 1.0) 10/15/18 23:20 Ur Leukocyte Esterase NEGATIVE (NEGATIVE) 10/15/18 23:20 Urine RBC NONE SEEN /hpf (0-5) 10/15/18 23:20 Urine WBC 2-5 /hpf (0-5) 10/15/18 23:20 Ur Epithelial Cells MANY /lpf (FEW) 10/15/18 23:20 Urine Bacteria FEW /hpf (NONE SEEN) 10/15/18 23:20 Ur Random Sodium 61 mmol/L 10/15/18 23:20 Urine Creatinine 71.0 mg/dl (28.0-217.0) 10/15/18 23:20 Microalb/Creat Ratio 56.2 mg/g creat (0.0-30.0) H 10/15/18 23:20 Fluid Source PARACENTHESIS 10/16/18 10:20 Fluid Color PALE YELLOW 10/16/18 10:20 Fluid Appearance CLEAR 10/16/18 10:20 Fluid WBC 33.3 /cumm 10/16/18 10:20 Fluid RBC 106.7 /cumm 10/16/18 10:20 Fluid Neutrophils 10 % 10/16/18 10:20 Fluid Lymphocytes 90 % 10/16/18 10:20 Fluid Monocytes Not Reportable 10/16/18 10:20 Hepatitis A IgM Ab Negative (Negative) 10/16/18 05:10 Hep Bs Antigen Positive (Negative) H 10/16/18 05:10 Hep B Core IgM Ab Negative (Negative) 10/16/18 05:10 Hepatitis C Antibody <0.1 s/co ratio (0.0-0.9) 10/16/18 05:10 - Physical Exam Vitals and I&O: Vital Signs Temp 97.2 F 10/18/18 08:00 Pulse 53 10/18/18 08:00 Resp 18 10/18/18 12:00 BP 102/61 10/18/18 08:00 Pulse Ox 96 10/18/18 08:00 Intake & Output 10/17/18 10/18/18 10/18/18 18:59 06:59 18:59 Intake Total 300 893 Balance 300 893 Weight (lbs) 85 lb 3.2 oz 85 lb 3.2 oz Intake: Intake, IV Amount 833 D5-0.45NS 1,000 ml @ 30 833 mls/hr IV .Q24H [facility] Rx#: [id number] Oral 300 60 Other: # Voids 3 2 # Bowel Movements 4 0 Stool Characteristics Soft Liquid Weight Source Bedscale Bedscale Active Medications: Current Medications Acetaminophen/Hydrocodone Bitart ([place] 5mg/325mg) 1 tab PO Q4H PRN PRN Reason: MILD TO MODERATE PAIN Stop: 12/15/18 23:27 Ascorbic Acid (Vitamin C) 500 mg PO DAILY [facility] Stop: 12/15/18 08:59 Last Admin: 10/18/18 09:19 Dose: 500 mg Bisacodyl (Dulcolax 10 Mg Supp) 10 mg RC DAILY PRN PRN Reason: Constipation Stop: 12/14/18 11:31 Last Admin: 10/15/18 13:59 Dose: 10 mg [place] Oil/[place] Balsam/Trypsin (Venelex) 1 appl TP DAILY [facility] Stop: 12/17/18 08:59 Last Admin: 01/15/19 09:19 Dose: 1 appl Docusate Sodium (Colace) 250 mg PO DAILY [facility] Stop: 12/15/18 08:59 Last Admin: 10/18/18 09:19 Dose: 250 mg Dextrose/Sodium Chloride (D5-0.45ns) 1,000 mls @ 30 mls/hr IV .Q24H [facility] Stop: 12/14/18 12:59 Last Admin: 10/18/18 05:47 Dose: 30 mls/hr Lactulose (Cephulac) 30 gm PO BID [facility] Stop: 12/15/18 08:59 Last Admin: 10/18/18 09:29 Dose: Not Given Magnesium Hydroxide (Milk Of Magnesia) 30 ml PO DAILY PRN PRN Reason: Constipation Stop: 12/14/18 13:59 Miscellaneous (Clinical Monitoring) 1 ea MC DAILY PRN PRN Reason: RENAL DOSING Stop: 12/16/18 09:00 Ondansetron HCl (Zofran) 4 mg IV Q6H PRN PRN Reason: Nausea / Vomiting Stop: 12/14/18 01:48 Rifaximin (Xifaxan) 550 mg PO BID [facility] Stop: 12/16/18 20:59 Last Admin: 10/18/18 09:19 Dose: 550 mg Sodium Phosphate (Fleet Enema) 135 ml RC Q48HR PRN PRN Reason: Constipation Stop: 12/14/18 11:31 Last Admin: 10/15/18 13:59 Dose: 135 ml General: weak, alert HEENT: NC/AT Neck: Supple Lungs: CTAB Cardiovascular: RRR, Normal S1, Normal S2 Abdomen: soft Extremities: clear Neurological: no change Internal Medicine Assmt/Plan - Assessment Assessment: Liver Cirrhosis w/ ascitis s/p paracentesis Macrocytosis YULIYA on CKD Recurrent Pancratitis Multiple hematomas Scalded Skin Wound Severe Malnutrition - Plan Plan: paracetesis as needed family deciding LTAC follow up labs in am continue current plan of care Nutritional Asmnt/Malnutr-PDOC - Dietary Evaluation Malnutrition Findings (Please click <Entered> for more info): Nutritional Asmnt/Malnutrition Start: 10/15/18 11: 49 Text: Status: Complete Freq: Protocol: Document 10/15/18 11:49 MMJUSTIN (Rec: 10/15/18 11:56 MMJUSTIN LIRA- [email or web address]) Nutritional Asmnt/Malnutrition Patient General Information Nutritional Screening High Risk Consult Diagnosis Ascites, abdominal pain, thrush fecal impaction Pertinent Medical Hx/Surgical Hx Pancreatitis, cholelithiasis, liver cirrhosis, osteopenia, cholecystitis, ascites Subjective Information Patient planned for paracentesis. Per nursing notes, patient needing fecal disimpacion and received fleet enema and suppository. Per family at bedside, patient has had a poor appetite and not eating for >1 week. He attributes this to her constipation and states she usually eats more. She especially will eat when they bring her food from outside. She prefers vanilla flavored supplements. He states she can tolerate regular diet texture without difficulty. patient visually with moderate to severe muscle wasting in temples and clavicles. Current Diet Order/ Nutrition Support Regular Patient / S.O Not Indicated Pertinent Medications Vitamin C, Dulcolax, D5-0.45 NS, colace, zofran, fleet enema Pertinent Labs (10/15) Na 134, BUN 56, Cr 2.3 (10/14) Mg 3.5, alumin 2.7 Nutritional Hx/Data Height 4 ft 10 in Height (Calculated Centimeters) 147.3 Current Weight (lbs) 83 lb Weight (Calculated Kilograms) 37.6 Weight (Calculated Grams) 09545.2 [place] Body Weight 95 % [place] Body Weight 87 Body Mass Index (BMI) 17.3 Recent Weight Change No Weight Status Underweight GI Symptoms GI Symptoms Constipation Last BM prior to admissio Difficult in: None Food Allergies No Cultural/Ethnic/Yazidi Belief none indicated Usual diet at home unknown Skin Integrity/Comment: Decubitus left leg, bruise right leg, maceration left hip , left abdomen, left back Nutritional Problem 2. Problem Problem Altered GI Function Etiology related to fecal impaction aeb Signs/Symptoms: nursing notes stating patient with impaction, pts family stating patient is uncomfortable and not wanting to eat due to constipation 1. Problem Problem Underweight related to Etiology likely inadequate intake/poor appetite aeb Signs/Symptoms: BMI 17.5 Intervention/Recommendation Comments 1. Continue reulgar diet as tolerated by patient. 2. Continue GI motility agents per MD to assist with constipation, which will help with appetite. 3. Add Ensure Enlive (vanilla) TID with meals to encourage weight gain. Expected Outcomes/Goals Expected Outcomes/Goals Oral intake >75% of meals, weight gain, nutrition related labs normalize
--- NOTE | 2018-10-18 13:58 | General Progress Note ---
Subjective - Review of Systems Service Date: 10/18/18 Subjective: more comfortable, less abd pain, no N/V, sleeping Objective - Results Result Diagrams: 10/18/18 04:50 10/18/18 04:50 Recent Labs: Laboratory Last Values WBC 5.6 Th/cmm (4.8-10.8) 10/18/18 04:50 RBC 2.95 Mil/cmm (3.80-5.20) L 10/18/18 04:50 Hgb 10.8 gm/dL (12-16) L 10/18/18 04:50 Hct 31.9 % (41.0-60) L 10/18/18 04:50 MCV 108.0 fl (81-100) H 10/18/18 04:50 MCH 36.4 pg (27.0-31.0) H 10/18/18 04:50 MCHC Differential 33.7 pg (28.0-36.0) 10/18/18 04:50 RDW 13.7 % (11.5-20.0) 10/18/18 04:50 Plt Count 164 Th/cmm (150-400) 10/18/18 04:50 MPV 7.6 fl 10/18/18 04:50 Add Manual Diff 10/15/18 06:05 Neutrophils % 72.0 % (40.0-80.0) 10/18/18 04:50 Lymphocytes % 18.6 % (20.0-50.0) L 10/18/18 04:50 Monocytes % 7.8 % (2.0-10.0) 10/18/18 04:50 Eosinophils % 0.7 % (0.0-5.0) 10/18/18 04:50 Basophils % 0.9 % (0.0-2.0) 10/18/18 04:50 Eos Smear Source URINE 10/15/18 23:20 Eos Smear Total Cells NONE SEEN (NONE SEEN) 10/15/18 23:20 PT 11.0 SECONDS (9.5-11.5) 10/15/18 06:05 INR 1.06 (0.5-1.4) 10/15/18 06:05 PTT (Actin FS) 31.4 SECONDS (26.0-38.0) 10/15/18 06:05 Sodium 133 mEq/L (136-145) L 10/18/18 04:50 Potassium 3.6 mEq/L (3.5-5.1) 10/18/18 04:50 Chloride 103 mEq/L (98-107) 10/18/18 04:50 Carbon Dioxide 22.9 mEq/L (21.0-31.0) 10/18/18 04:50 Anion Gap 10.7 (7.0-16.0) 10/18/18 04:50 BUN 54 mg/dL (7-25) H 10/18/18 04:50 Creatinine 1.9 mg/dL (0.6-1.2) H 10/18/18 04:50 Est GFR ( Amer) TNP 10/18/18 04:50 Est GFR (Non-Af Amer) TNP 10/18/18 04:50 BUN/Creatinine Ratio 28.4 10/18/18 04:50 Glucose 110 mg/dL (70-105) H 10/18/18 04:50 Whole Bld Lactic Acid 1.95 mmol/L (0.60-1.99) 10/15/18 08:08 Calcium 8.9 mg/dL (8.6-10.3) 10/18/18 04:50 Phosphorus 4.4 mg/dL (2.5-5.0) 10/14/18 13:31 Magnesium 3.5 mg/dL (1.9-2.7) H 10/14/18 13:31 Total Bilirubin 0.5 mg/dL (0.3-1.0) 10/18/18 04:50 AST 27 U/L (13-39) 10/18/18 04:50 ALT 13 U/L (7-52) 10/18/18 04:50 Alkaline Phosphatase 58 U/L (34-104) 10/18/18 04:50 Ammonia 37 umol/L (16-53) 10/15/18 06:05 Total Protein 5.3 gm/dL (6.0-8.3) L 10/18/18 04:50 Albumin 2.4 gm/dL (3.7-5.3) L 10/18/18 04:50 Globulin 2.9 gm/dL 10/18/18 04:50 Albumin/Globulin Ratio 0.8 (1.0-1.8) L 10/18/18 04:50 Amylase 122 U/L (29-103) H 10/14/18 13:31 Lipase 190 U/L (11-82) H 10/16/18 05:10 TSH 3.98 uIU/ml (0.34-5.60) 10/14/18 16:31 Urine Source CATH 10/15/18 23:20 Urine Color YELLOW 10/15/18 23:20 Urine Clarity HAZY (CLEAR) 10/15/18 23:20 Urine pH 5.5 (4.6 - 8.0) 10/15/18 23:20 Ur Specific [place] 1.025 (1.005-1.030) 10/15/18 23:20 Urine Protein NEGATIVE mg/dL (NEGATIVE) 10/15/18 23:20 Urine Glucose (UA) NEGATIVE mg/dL (NEGATIVE) 10/15/18 23:20 Urine Ketones TRACE mg/dL (NEGATIVE) 10/15/18 23:20 Urine Blood SMALL (NEGATIVE) H 10/15/18 23:20 Urine Nitrate NEGATIVE (NEGATIVE) 10/15/18 23:20 Urine Bilirubin NEGATIVE (NEGATIVE) 10/15/18 23:20 Urine Urobilinogen 0.2 E.U./dL (0.2 - 1.0) 10/15/18 23:20 Ur Leukocyte Esterase NEGATIVE (NEGATIVE) 10/15/18 23:20 Urine RBC NONE SEEN /hpf (0-5) 10/15/18 23:20 Urine WBC 2-5 /hpf (0-5) 10/15/18 23:20 Ur Epithelial Cells MANY /lpf (FEW) 10/15/18 23:20 Urine Bacteria FEW /hpf (NONE SEEN) 10/15/18 23:20 Ur Random Sodium 61 mmol/L 10/15/18 23:20 Urine Creatinine 71.0 mg/dl (28.0-217.0) 10/15/18 23:20 Microalb/Creat Ratio 56.2 mg/g creat (0.0-30.0) H 10/15/18 23:20 Fluid Source PARACENTHESIS 10/16/18 10:20 Fluid Color PALE YELLOW 10/16/18 10:20 Fluid Appearance CLEAR 10/16/18 10:20 Fluid WBC 33.3 /cumm 10/16/18 10:20 Fluid RBC 106.7 /cumm 10/16/18 10:20 Fluid Neutrophils 10 % 10/16/18 10:20 Fluid Lymphocytes 90 % 10/16/18 10:20 Fluid Monocytes Not Reportable 10/16/18 10:20 Hepatitis A IgM Ab Negative (Negative) 10/16/18 05:10 Hep Bs Antigen Positive (Negative) H 10/16/18 05:10 Hep B Core IgM Ab Negative (Negative) 10/16/18 05:10 Hepatitis C Antibody <0.1 s/co ratio (0.0-0.9) 10/16/18 05:10 - Physical Exam Vitals and I&O: Vital Signs Temp 97.2 F 10/18/18 08:00 Pulse 53 10/18/18 08:00 Resp 18 10/18/18 12:00 BP 102/61 10/18/18 08:00 Pulse Ox 96 10/18/18 08:00 Intake & Output 10/17/18 10/18/18 10/18/18 18:59 06:59 18:59 Intake Total 300 893 Balance 300 893 Weight (lbs) 38.646 kg 38.646 kg Intake: Intake, IV Amount 833 D5-0.45NS 1,000 ml @ 30 833 mls/hr IV .Q24H [facility] Rx#: [id number] Oral 300 60 Other: # Voids 3 2 # Bowel Movements 4 0 Stool Characteristics Soft Liquid Weight Source Bedscale Bedscale Active Medications: Current Medications Acetaminophen/Hydrocodone Bitart ([place] 5mg/325mg) 1 tab PO Q4H PRN PRN Reason: MILD TO MODERATE PAIN Stop: 12/15/18 23:27 Ascorbic Acid (Vitamin C) 500 mg PO DAILY [facility] Stop: 12/15/18 08:59 Last Admin: 10/18/18 09:19 Dose: 500 mg Bisacodyl (Dulcolax 10 Mg Supp) 10 mg RC DAILY PRN PRN Reason: Constipation Stop: 12/14/18 11:31 Last Admin: 10/15/18 13:59 Dose: 10 mg [place] Oil/[place]rian Balsam/Trypsin (Venelex) 1 appl TP DAILY [facility] Stop: 12/17/18 08:59 Last Admin: 10/18/18 09:19 Dose: 1 appl Docusate Sodium (Colace) 250 mg PO DAILY [facility] Stop: 12/15/18 08:59 Last Admin: 10/18/18 09:19 Dose: 250 mg Dextrose/Sodium Chloride (D5-0.45ns) 1,000 mls @ 30 mls/hr IV .Q24H [facility] Stop: 12/14/18 12:59 Last Admin: 10/18/18 05:47 Dose: 30 mls/hr Lactulose (Cephulac) 30 gm PO BID [facility] Stop: 12/15/18 08:59 Last Admin: 10/18/18 09:29 Dose: Not Given Magnesium Hydroxide (Milk Of Magnesia) 30 ml PO DAILY PRN PRN Reason: Constipation Stop: 12/14/18 13:59 Miscellaneous (Clinical Monitoring) 1 ea MC DAILY PRN PRN Reason: RENAL DOSING Stop: 12/16/18 09:00 Ondansetron HCl (Zofran) 4 mg IV Q6H PRN PRN Reason: Nausea / Vomiting Stop: 12/14/18 01:48 Rifaximin (Xifaxan) 550 mg PO BID [facility] Stop: 12/16/18 20:59 Last Admin: 10/18/18 09:19 Dose: 550 mg Sodium Phosphate (Fleet Enema) 135 ml RC Q48HR PRN PRN Reason: Constipation Stop: 12/14/18 11:31 Last Admin: 10/15/18 13:59 Dose: 135 ml General: Alert, No acute distress HEENT: Atraumatic Neck: Supple Cardiovascular: Regular rate Lungs: Normal air movement Abdomen: Bowel sounds, Soft (less tender), no Tender Extremities: no Edema Neurological: Sensation intact Skin: Significant lesion (scalded skin abd to left flank) Psych/Mental Status: Mood NL Assessment/Plan - Assessment Assessment: Liver Cirrhosis w/ ascites Macrocytosis YULIYA on CKD Recurrent Pancratitis Multiple hematomas Scalded Skin Wound Severe Malnutrition - Plan Plan: Lab - Result Diagrams 10/15/18 06:05 10/16/18 05:10 Current Medications Ascorbic Acid (Vitamin C) 500 mg PO DAILY [facility] Stop: 12/15/18 08:59 Last Admin: 10/16/18 10:42 Dose: 500 mg Bisacodyl (Dulcolax 10 Mg Supp) 10 mg RC DAILY PRN PRN Reason: Constipation Stop: 12/14/18 11:31 Last Admin: 10/15/18 13:59 Dose: 10 mg Docusate Sodium (Colace) 250 mg PO DAILY [facility] Stop: 12/15/18 08:59 Last Admin: 10/16/18 10:43 Dose: 250 mg Dextrose/Sodium Chloride (D5-0.45ns) 1,000 mls @ 30 mls/hr IV .Q24H [facility] Stop: 12/14/18 12:59 Last Admin: 10/16/18 06:00 Dose: 30 mls/hr Lactulose (Cephulac) 30 gm PO BID [facility] Stop: 12/15/18 08:59 Last Admin: 10/16/18 10:42 Dose: 30 gm Magnesium Hydroxide (Milk Of Magnesia) 30 ml PO DAILY PRN PRN Reason: Constipation Stop: 12/14/18 13:59 Ondansetron HCl (Zofran) 4 mg IV Q6H PRN PRN Reason: Nausea / Vomiting Stop: 12/14/18 01:48 Sodium Phosphate (Fleet Enema) 135 ml RC Q48HR PRN PRN Reason: Constipation Stop: 12/14/18 11:31 Last Admin: 10/15/18 13:59 Dose: 135 ml Lab - Result Diagrams 10/18/18 04:50 10/18/18 04:50 Bun/Cr improved to 54/1.9 Underwent therapeutic tap, eve 500 ml peritoneal fluid obtained more comfortable f/u electrolytes Nutritional Asmnt/Malnutr-PDOC - Dietary Evaluation Malnutrition Findings (Please click <Entered> for more info): Nutritional Asmnt/Malnutrition Start: 10/15/18 11: 49 Text: Status: Complete Freq: Protocol: Document 10/15/18 11:49 VIPUL (Rec: 10/15/18 11:56 VIPUL LIRA FN) Nutritional Asmnt/Malnutrition Patient General Information Nutritional Screening High Risk Consult Diagnosis Ascites, abdominal pain, thrush fecal impaction Pertinent Medical Hx/Surgical Hx Pancreatitis, cholelithiasis, liver cirrhosis, osteopenia, cholecystitis, ascites Subjective Information Patient planned for paracentesis. Per nursing notes, patient needing fecal disimpacion and received fleet enema and suppository. Per family at bedside, patient has had a poor appetite and not eating for >1 week. He attributes this to her constipation and states she usually eats more. She especially will eat when they bring her food from outside. She prefers vanilla flavored supplements. He states she can tolerate regular diet texture without difficulty. patient visually with moderate to severe muscle wasting in temples and clavicles. Current Diet Order/ Nutrition Support Regular Patient / S.O Not Indicated Pertinent Medications Vitamin C, Dulcolax, D5-0.45 NS, colace, zofran, fleet enema Pertinent Labs (10/15) Na 134, BUN 56, Cr 2.3 (10/14) Mg 3.5, alumin 2.7 Nutritional Hx/Data Height 1.47 m Height (Calculated Centimeters) 147.3 Current Weight (lbs) 37.648 kg Weight (Calculated Kilograms) 37.6 Weight (Calculated Grams) 14196.2 [place] Body Weight 95 % [place] Body Weight 87 Body Mass Index (BMI) 17.3 Recent Weight Change No Weight Status Underweight GI Symptoms GI Symptoms Constipation Last BM prior to admissio Difficult in: None Food Allergies No Cultural/Ethnic/Caodaism Belief none indicated Usual diet at home unknown Skin Integrity/Comment: Decubitus left leg, bruise right leg, maceration left hip , left abdomen, left back Nutritional Problem 2. Problem Problem Altered GI Function Etiology related to fecal impaction aeb Signs/Symptoms: nursing notes stating patient with impaction, pts family stating patient is uncomfortable and not wanting to eat due to constipation 1. Problem Problem Underweight related to Etiology likely inadequate intake/poor appetite aeb Signs/Symptoms: BMI 17.5 Intervention/Recommendation Comments 1. Continue reulgar diet as tolerated by patient. 2. Continue GI motility agents per MD to assist with constipation, which will help with appetite. 3. Add Ensure Enlive (vanilla) TID with meals to encourage weight gain. Expected Outcomes/Goals Expected Outcomes/Goals Oral intake >75% of meals, weight gain, nutrition related labs normalize
== END 2018-10-18 22:25 | DRG 441 ==
LOC: ER 15:39 → TELE 21:50
PROVIDERS: ADMIT Internal Medicine; ATTEND Internal Medicine
PROC: 0W9G3ZZ Drainage of Peritoneal Cavity, Percutaneous Approach (ICD-10-PCS; principal; 2018-10-15)
DX: K72.90 Hepatic failure, unspecified without coma (principal); K85.90 Acute pancreatitis without necrosis or infection, unspecified; E43 Unspecified severe protein-calorie malnutrition; R18.8 Other ascites; N17.9 Acute kidney failure, unspecified; Z68.1 Body mass index [BMI] 19.9 or less, adult; K56.7 Ileus, unspecified; K86.1 Other chronic pancreatitis; I95.9 Hypotension, unspecified; K56.41 Fecal impaction; K74.60 Unspecified cirrhosis of liver; N18.9 Chronic kidney disease, unspecified; M85.80 Other specified disorders of bone density and structure, unspecified site; I12.9 Hypertensive chronic kidney disease with stage 1 through stage 4 chronic kidney disease, or unspecified chronic kidney disease; K80.20 Calculus of gallbladder without cholecystitis without obstruction; S31.109A Unspecified open wound of abdominal wall, unspecified quadrant without penetration into peritoneal cavity, initial encounter; D75.89 Other specified diseases of blood and blood-forming organs; F03.90 Unspecified dementia, unspecified severity, without behavioral disturbance, psychotic disturbance, mood disturbance, and anxiety; X58.XXXA Exposure to other specified factors, initial encounter; Y93.89 Activity, other specified; Y92.89 Other specified places as the place of occurrence of the external cause; Y99.8 Other external cause status
CPT/HCPCS: 36415-UA; 74000-TC; 76942-TC; 80048-TC; 80053-TC; 80074-90; 81001-TC; 81003-TC; 81015-TC; 82043-90; 82140-TC; 82150-TC; 82570-TC; 83605; 83690-TC; 83735-TC; 84100-TC; 84300-TC; 84443-TC; 85025-TC; 85610-TC; 87070-90; 89051-TC; J2001; Z7610

== ENCOUNTER 2018-10-29 09:21 | Inpatient (IN) | payer MEDICARE, MEDICAID ==
[2018-10-29] MEDS ORDERED: Sodium Chloride 0.45% 500 ML IV ONE ×2 (09:35→14:30)
--- NOTE | 2018-10-29 09:52 | ED Physician Chart ---
ED Chief Complaint/HPI - Patient Information Date Seen:: 10/29/18 Time Seen:: 09:47 Chief Complaint:: WEAKNESS History of Present Illness:: THIS IS AN 87 YO FEMALE SENT FROM A [facility] FOR EVALUATION AND TREATMENT BECAUSE OF ABNORMAL LAB RESULTS. Allergies:: Allergies Allergy/AdvReac Type Severity Reaction Status Date / Time No Known Allergies Allergy Verified 10/29/18 09:31 Vitals:: Vital Signs - 8 hr 10/29/18 09:31 Temp 97.3 F HR 63 RR 18 BP 92/62 O2 Sat % 100 Historian:: EMS, Medical Records Review:: Nurse's Note Reviewed, Old Chart Reviewed ED Review of Systems - Review of Systems General/Constitutional: No fever, No chills, No weight loss, Weakness, No diaphoresis, No edema, No loss of appetite Skin: Skin lesions, No skin lesions, No rash, No bruising Head: No headache, No light-headedness Eyes: No loss of vision, No pain, No diplopia ENT: No earache, No nasal drainage, No sore throat, No tinnitus Neck: No neck pain, No swelling, No thyromegaly, No stiffness, No mass noted Cardio Vascular: No chest pain, No palpitations, No PND, No orthopnea, No edema Pulmonary: No SOB, No cough, No sputum, No wheezing GI: No nausea, No vomiting, No diarrhea, No pain, No melena, No hematochezia, No constipation, No hematemesis G/U: No dysuria, No frequency, No hematuria Musculoskeletal: Bone or joint pain, No bone or joint pain, No back pain, No muscle pain Endocrine: No polyuria, No polydipsia Psychiatric: No prior psych history, No depression, No anxiety, No suicidal ideation Hematopoietic: No bruising, No lymphadenopathy Allergic/Immuno: No urticaria, No angioedema Neurological: No syncope, No focal symptoms, No weakness, No paresthesia, No headache, No seizure, No dizziness, No confusion, No vertigo ED Past Medical History - Past Medical History Obtainable: Yes Past Medical History: HTN, PUD/GERD, Arthritis, Dementia, Other (LIVER DISEASE) Family History: None Social History: Non Smoker, No Alcohol, No Drug Use, Care Facility Surgical History: None Psychiatricy History: None Medication: Reviewed Family Medical History - Family Member Daughter History Unknown: Yes Ethnicity: Unknown Living Status: Unknown ED Physical Exam - Physical Examination General/Constitutional: Awake, Alert, No distress, GCS 15, Non-toxic appearing, Ambulatory Other Gen/Cons comments:: POORLY NOURISHED, LETHARGIC WEAK FEMALE. Head: Atraumatic Eyes: Lids, conjuctiva normal, PERRL, EOMI Skin: Nl inspection, No rash, No skin lesions, No ecchymosis, Well hydrated, No lymphadenopathy ENMT: External ears, nose nl, Nasal exam nl, Lips, teeth, gums nl Neck: Nontender, Full ROM w/o pain, No JVD, No nuchal rigidity, No bruit, No mass, No stridor Respiratory: Nl effort/Exclusion, Clear to Auscultation, No Wheeze/Rhonchi/Rales Cardio Vascular: RRR, No murmur, gallop, rubs, NL S1 S2 GI: No tenderness/rebounding/guarding, No organomegaly, No hernia, Normal BS's, Nondistended, No mass/bruits, No McBurney tenderness : No CVA tenderness Extremities: No tenderness or effusion, Full ROM, normal strength in all extremities, No edema, Normal digits & nails Other Extremities comments:: LOWER EXTREMITIES HAVE SEVERE MUSCLE WASTING AND BLOODY BLOTCHES PRESENT. Neuro/Psych: Alert/oriented, DTR's symmetric, Normal sensory exam, Normal motor strength, Judgement/insight normal, Mood normal, Normal gait, No focal deficits Misc: Normal back, No paraspinal tenderness ED Labs/Radiology/EKG Results - EKG Interpretations EKG Time:: 09:40 Rate & Rhythm: RATE=71, SINUS [place]: RIGHT Intervals: APC'S NOTED ED Assessment - Assessment General Assessment: FAILURE THRIVE WEAKNESS ED Septic Shock - . Is Septic Shock (SBP<90, OR Lactate>4 mmol\L) present?: No - <6hrs of presentation: Vital Signs: Vital Signs - 8 hr 10/29/18 09:31 Temp 97.3 F HR 63 RR 18 BP 92/62 O2 Sat % 100 ED Reassessment (Disposition) - Diagnosis Diagnosis:: renal failure - Patient Disposition Discharge/Transfer:: Acute Care w/in this hosp Admitting Medical Physician:: Subha Gerber Condition at Disposition:: Improved
[2018-10-29 10:29] LABS: HEMATOCRIT 36.4 % (41.0-60); HEMOGLOBIN 12.1 gm/dL (12-16); MEAN CORPUSCULAR HEMOGLOBIN 36.1 pg (27.0-31.0); MEAN CORPUSCULAR HGB CONC 33.2 pg (28.0-36.0); MEAN PLATELET VOLUME 7.2 fl; PLATELET COUNT 148 Th/cmm (150-400); RED BLOOD COUNT 3.35 Mil/cmm (3.80-5.20); RED CELL DISTRIBUTION WIDTH 15.1 % (11.5-20.0); WHITE BLOOD COUNT 6.4 Th/cmm (4.8-10.8)
--- NOTE | 2018-10-29 10:33 | Diagnostic Imaging Report ---
Portable chest x-ray HISTORY: Cough The heart size is normal. Atherosclerotic calcification seen in the aorta. Accentuation of the lower interstitial lung markings. However, no acute focal processes are seen. Scoliosis of the thoracic spine convexity to the right. IMPRESSION: 1. Accentuation of the lower interstitial lung markings. However, no acute focal pulmonary processes. 2. Atherosclerotic vascular changes
[2018-10-29 10:36] LABS: MEAN CELL VOLUME 108.8 fl (81-100)
[2018-10-29 10:45] LABS: ALB/GLOB RATIO 0.8 (1.0-1.8); ALBUMIN 2.7 gm/dL (3.7-5.3); ALKALINE PHOSPHATASE 74 U/L (34-104); ANION GAP 13.5 (7.0-16.0); BILIRUBIN,TOTAL 0.7 mg/dL (0.3-1.0); BUN - UREA NITROGEN 72 mg/dL (7-25); CALCIUM SERUM 9.4 mg/dL (8.6-10.3); CHLORIDE 100 mEq/L (98-107); CREATININE - SERUM 3.3 mg/dL (0.6-1.2); GLUCOSE 123 mg/dL (70-105); POTASSIUM SERUM 3.5 mEq/L (3.5-5.1); SGOT 41 U/L (13-39); SGPT/ALT 22 U/L (7-52); SODIUM SERUM 136 mEq/L (136-145); TOTAL PROTEIN,SERUM 6.3 gm/dL (6.0-8.3)
[2018-10-29 10:53] LABS: BAND NEUTROPHILE 0 % (0-10); BASOPHIL 0 % (0-3); EOSINOPHIL 0 % (0-5); LYMPHOCYTE 29 % (20-50); MONOCYTE 5 % (2-10); NEUTROPHILS 66 % (40-80)
[2018-10-29 11:20] LABS: INR 1.03 (0.5-1.4); PROTHROMBIN TIME (TEST) 10.7 SECONDS (9.5-11.5)
[2018-10-29] MEDS ORDERED: VTE Chemical Prophylaxis Screen/Admission MC PRN (14:14)
[2018-10-29 18:09] LABS: URINE SOURCE FOLEY PORT
[2018-10-29 18:43] LABS: URINE BILIRUBIN NEGATIVE (NEGATIVE); URINE BLOOD SMALL (NEGATIVE); URINE GLUCOSE (UA) NEGATIVE (NEGATIVE); URINE KETONE NEGATIVE (NEGATIVE); URINE LEUKOCYTE ESTERASE LARGE (NEGATIVE); URINE MICROSCOPIC INDICATED? YES; URINE NITRATE NEGATIVE (NEGATIVE); URINE PH 5.5 (4.6 - 8.0); URINE PROTEIN NEGATIVE (NEGATIVE); URINE UROBILINOGEN 0.2 E.U./dL (0.2 - 1.0)
[2018-10-29 18:50] LABS: URINE CLARITY CLOUDY (CLEAR); URINE COLOR YELLOW
[2018-10-29 18:52] LABS: URINE BACTERIA MANY /hpf (NONE SEEN); URINE EPITHELIAL CELLS FEW /lpf (FEW); URINE WBC 50-100 /hpf (0-5)
[2018-10-29 20:02] LABS: ALB/GLOB RATIO 0.7 (1.0-1.8); ALBUMIN 2.7 gm/dL (3.7-5.3); ALKALINE PHOSPHATASE 72 U/L (34-104); ANION GAP 15.9 (7.0-16.0); BILIRUBIN,TOTAL 0.7 mg/dL (0.3-1.0); BUN - UREA NITROGEN 71 mg/dL (7-25); CALCIUM SERUM 9.6 mg/dL (8.6-10.3); CARBON DIOXIDE 23.9 mEq/L (21.0-31.0); CHLORIDE 100 mEq/L (98-107); CREATININE - SERUM 3.2 mg/dL (0.6-1.2); GLUCOSE 109 mg/dL (70-105); MAGNESIUM 2.3 mg/dL (1.9-2.7); POTASSIUM SERUM 3.8 mEq/L (3.5-5.1); SGOT 41 U/L (13-39); SGPT/ALT 23 U/L (7-52); SODIUM SERUM 136 mEq/L (136-145); TOTAL PROTEIN,SERUM 6.4 gm/dL (6.0-8.3)
[2018-10-30] MEDS: D5-0.45NS w/20 mEq KCL 1,000 ML IV SCH ×2 (00:26→14:23)
--- NOTE | 2018-10-30 05:45 | Consultation ---
DATE OF CONSULTATION: 10/29/2018 INFECTIOUS DISEASE CONSULTATION REFERRING PHYSICIAN: Nataliya Gerber M.D. REASON FOR CONSULTATION: Cachexia. HISTORY OF PRESENT ILLNESS: The patient is an 87-year-old female with a past medical history of severe dementia, renal failure, chronic kidney disease, stage 3, brought in from care home for abnormal labs including increasing creatinine. On initial evaluation, the patient was afebrile and temperature was 97.3 degrees Fahrenheit, WBC count was 6400, creatinine was 3.3. IV fluid was started. ID consult was called for acute renal failure and cachexia. PAST MEDICAL HISTORY: Includes CKD, liver cirrhosis with ascites, recurrent pancreatitis, essential hypertension, cholelithiasis, and severe malnutrition. MEDICATIONS: As per medication reconciliation sheet. ALLERGIES: NKDA. SOCIAL HISTORY: The patient lives at care home. No history of smoking, alcohol, or drug use. FAMILY HISTORY: Noncontributory. REVIEW OF SYSTEMS: Unable to obtain. She is alert and awake. She is not eating enough. PHYSICAL EXAMINATION: VITAL SIGNS: Current vital signs shows temperature is 97.5, pulse is 64, respirations 18, and blood pressure is 99/53. GENERAL: The patient is comfortable, lying in the bed. The patient is cachectic, not in acute distress. HEENT: Head is normocephalic, atraumatic. Oral cavity moist, pink tongue. Eyes: No pallor, no icterus. Pupils PERRLA, EOMI. NECK: Supple. No JVD. No carotid bruit. Trachea midline. CHEST: Bilateral breath sounds. No crackles or wheezing. HEART: S1, S2 within normal limits. Regular rhythm. No murmur or gallop. ABDOMEN: Soft, nontender, nondistended. Bowel sounds present. EXTREMITIES: No cyanosis, no clubbing, and no edema. NEUROLOGIC: She is alert and awake. LABORATORY DATA: Current lab shows WBC count is 6400, hemoglobin is 12.1, hematocrit is 36.4, platelets 140,000, neutrophils 56%. INR is 1.03. Sodium is 136, potassium is 3.5, chloride is 100, bicarbonate is 26, BUN is 72, creatinine is 3.3, her baseline creatinine was 1.9-2.2. Glucose is 123. Albumin is 2.7. There is no urine output as per the staff. IMPRESSION: 1. Cachexia, protein-calorie malnutrition. 2. Acute renal failure, chronic kidney disease. 3. Dementia. 4. Recurrent pancreatitis. 5. Liver cirrhosis. 6. Cholelithiasis. 7. Hypertension. RECOMMENDATIONS: We will continue same treatment. We will check UA, urine culture. We will check the Medrano, put the Medrano edge at the entry of output ____. Thank you, Dr. Nataliya Gerber for involving me in taking care of this patient. JOB# [id number]
[2018-10-30 07:53] LABS: HEMATOCRIT 34.6 % (41.0-60); HEMOGLOBIN 11.9 gm/dL (12-16); MEAN CORPUSCULAR HEMOGLOBIN 36.4 pg (27.0-31.0); MEAN CORPUSCULAR HGB CONC 34.3 pg (28.0-36.0); MEAN PLATELET VOLUME 6.9 fl; PLATELET COUNT 126 Th/cmm (150-400); RED BLOOD COUNT 3.27 Mil/cmm (3.80-5.20); RED CELL DISTRIBUTION WIDTH 14.7 % (11.5-20.0); WHITE BLOOD COUNT 5.4 Th/cmm (4.8-10.8)
[2018-10-30 08:13] LABS: ANION GAP 10.4 (7.0-16.0); BUN - UREA NITROGEN 65 mg/dL (7-25); CALCIUM SERUM 9.1 mg/dL (8.6-10.3); CARBON DIOXIDE 26.7 mEq/L (21.0-31.0); CHLORIDE 99 mEq/L (98-107); CREATININE - SERUM 2.6 mg/dL (0.6-1.2); GLUCOSE 133 mg/dL (70-105); POTASSIUM SERUM 4.1 mEq/L (3.5-5.1); SODIUM SERUM 132 mEq/L (136-145)
[2018-10-30 08:19] LABS: BAND NEUTROPHILE 0 % (0-10); BASOPHIL 0 % (0-3); EOSINOPHIL 0 % (0-5); LYMPHOCYTE 30 % (20-50); MONOCYTE 5 % (2-10); NEUTROPHILS 65 % (40-80)
[2018-10-30] MEDS ORDERED: Influenza Vaccine (65 yr & older) 0.5 ml Syr IM ONE (09:00)
[2018-10-30] MEDS ORDERED: Pneumococcal Vaccine 0.5 mL Vial IM ONE (09:00)
[2018-10-30] MEDS ORDERED: Albuterol Nebulizer 2.5mg/3mL HHN PRN (19:32)
[2018-10-30] MEDS ORDERED: Magnesium Hydroxide (MOM) 30 mL UDC PO PRN (19:32)
[2018-10-30] MEDS ORDERED: Fleet Enema 135 mL RC PRN (19:32)
[2018-10-30] MEDS: Cefepime 1 GM in Sodium Chloride 0.9% 50 ML IV SCH (20:22)
--- NOTE | 2018-10-30 21:09 | Infectious Disease Prog Note ---
Infectious Disease Subjective - Review of Systems Service Date: 10/30/18 Subjective: no change, no fever. Infectious Disease Objective - Results Result Diagrams: 10/30/18 07:35 10/30/18 07:35 Recent Labs: Laboratory Last Values WBC 5.4 Th/cmm (4.8-10.8) 10/30/18 07:35 RBC 3.27 Mil/cmm (3.80-5.20) L 10/30/18 07:35 Hgb 11.9 gm/dL (12-16) L 10/30/18 07:35 Hct 34.6 % (41.0-60) L 10/30/18 07:35 MCV 106.0 fl (81-100) H 10/30/18 07:35 MCH 36.4 pg (27.0-31.0) H 10/30/18 07:35 MCHC Differential 34.3 pg (28.0-36.0) 10/30/18 07:35 RDW 14.7 % (11.5-20.0) 10/30/18 07:35 Plt Count 126 Th/cmm (150-400) L 10/30/18 07:35 MPV 6.9 fl 10/30/18 07:35 Add Manual Diff YES 10/30/18 07:35 Band Neutrophils % 0 % (0-10) 10/30/18 07:35 Neutrophils (Manual) 65 % (40-80) 10/30/18 07:35 Lymphocytes 30 % (20-50) 10/30/18 07:35 Monocytes 5 % (2-10) 10/30/18 07:35 Eosinophils 0 % (0-5) 10/30/18 07:35 Basophils 0 % (0-3) 10/30/18 07:35 Macrocytosis 1+ 10/30/18 07:35 PT 10.7 SECONDS (9.5-11.5) 10/29/18 10:20 INR 1.03 (0.5-1.4) 10/29/18 10:20 PTT (Actin FS) 28.7 SECONDS (26.0-38.0) 10/29/18 10:20 Sodium 132 mEq/L (136-145) L 10/30/18 07:35 Potassium 4.1 mEq/L (3.5-5.1) 10/30/18 07:35 Chloride 99 mEq/L (98-107) 10/30/18 07:35 Carbon Dioxide 26.7 mEq/L (21.0-31.0) 10/30/18 07:35 Anion Gap 10.4 (7.0-16.0) 10/30/18 07:35 BUN 65 mg/dL (7-25) H 10/30/18 07:35 Creatinine 2.6 mg/dL (0.6-1.2) H 10/30/18 07:35 Est GFR ( Amer) TNP 10/30/18 07:35 Est GFR (Non-Af Amer) TNP 10/30/18 07:35 BUN/Creatinine Ratio 25.0 10/30/18 07:35 Glucose 133 mg/dL (70-105) H 10/30/18 07:35 Whole Bld Lactic Acid 1.18 mmol/L (0.60-1.99) 10/30/18 07:35 Calcium 9.1 mg/dL (8.6-10.3) 10/30/18 07:35 Magnesium 2.3 mg/dL (1.9-2.7) 10/29/18 10:20 Total Bilirubin 0.7 mg/dL (0.3-1.0) 10/29/18 10:20 AST 41 U/L (13-39) H 10/29/18 10:20 ALT 23 U/L (7-52) 10/29/18 10:20 Alkaline Phosphatase 72 U/L (34-104) 10/29/18 10:20 Ammonia 26 umol/L (16-53) 10/30/18 07:35 Troponin I 0.04 ng/mL (0.01-0.05) 10/29/18 10:20 Total Protein 6.4 gm/dL (6.0-8.3) 10/29/18 10:20 Albumin 2.7 gm/dL (3.7-5.3) L 10/29/18 10:20 Globulin 3.7 gm/dL 10/29/18 10:20 Albumin/Globulin Ratio 0.7 (1.0-1.8) L 10/29/18 10:20 TSH 2.78 uIU/ml (0.34-5.60) 10/29/18 10:20 Urine Source NEUMANN PORT 10/29/18 18:00 Urine Color YELLOW 10/29/18 18:00 Urine Clarity CLOUDY (CLEAR) H 10/29/18 18:00 Urine pH 5.5 (4.6 - 8.0) 10/29/18 18:00 Ur Specific [place] <= 1.005 (1.005-1.030) 10/29/18 18:00 Urine Protein NEGATIVE mg/dL (NEGATIVE) 10/29/18 18:00 Urine Glucose (UA) NEGATIVE mg/dL (NEGATIVE) 10/29/18 18:00 Urine Ketones NEGATIVE mg/dL (NEGATIVE) 10/29/18 18:00 Urine Blood SMALL (NEGATIVE) H 10/29/18 18:00 Urine Nitrate NEGATIVE (NEGATIVE) 10/29/18 18:00 Urine Bilirubin NEGATIVE (NEGATIVE) 10/29/18 18:00 Urine Urobilinogen 0.2 E.U./dL (0.2 - 1.0) 10/29/18 18:00 Ur Leukocyte Esterase LARGE (NEGATIVE) H 10/29/18 18:00 Urine RBC 2-5 /hpf (0-5) 10/29/18 18:00 Urine WBC 50-100 /hpf (0-5) H 10/29/18 18:00 Ur Epithelial Cells FEW /lpf (FEW) 10/29/18 18:00 Urine Bacteria MANY /hpf (NONE SEEN) H 10/29/18 18:00 - Physical Exam Vitals and I&O: Vital Signs Temp 98.0 F 10/30/18 20:00 Pulse 62 10/30/18 20:00 Resp 19 10/30/18 20:00 BP 101/65 10/30/18 20:00 Pulse Ox 99 10/30/18 20:00 Intake & Output 10/30/18 10/30/18 10/31/18 06:59 18:59 06:59 Intake Total 120 1000 Output Total 500 Balance -380 1000 Weight (lbs) 32.659 kg Intake: Intake, IV Amount 1000 D5-0.45NS w/20 mEq KCL 1, 1000 000 ml @ 75 mls/hr IV . [id number] [facility] Rx#:[id number] Oral 120 Output: Urine 500 Other: # Bowel Movements 1 Weight Source Bedscale Active Medications: Current Medications Ascorbic Acid (Vitamin C) 500 mg PO DAILY [facility] Stop: 12/30/18 08:59 Bisacodyl (Dulcolax 10 Mg Supp) 10 mg RC DAILY PRN PRN Reason: Constipation Stop: 12/29/18 19:31 Docusate Sodium (Colace) 250 mg PO DAILY [facility] Stop: 12/30/18 08:59 Furosemide (Lasix) 40 mg PO DAILY [facility] Stop: 12/30/18 08:59 Heparin Sodium (Porcine) (Heparin) 5,000 units SUBQ Q12HR [facility] Stop: 12/28/18 20:59 Last Admin: 10/30/18 20:27 Dose: Not Given Potassium Chloride/Dextrose/Sod Cl (D5-0.45ns W/20 Meq Kcl) 1,000 mls @ 75 mls/ hr IV .[id number] [facility] Stop: 12/29/18 00:14 Last Admin: 10/30/18 14:23 Dose: 75 mls/hr Cefepime HCl 1 gm/ Sodium (Chloride) 50 mls @ 100 mls/hr IV Q24HR [facility] Stop: 12/29/18 20:59 Last Admin: 10/30/18 20:22 Dose: 100 mls/hr Ibuprofen (Motrin) 400 mg PO Q6H PRN PRN Reason: Pain or Fever >101 Stop: 12/29/18 19:31 Magnesium Hydroxide (Milk Of Magnesia) 30 ml PO DAILY PRN PRN Reason: Constipation Stop: 12/29/18 19:31 Miscellaneous (Vte Chemical Prophylaxis Screen/ Admission) 1 ea MC PRN PRN PRN Reason: PROTOCOL Stop: 12/28/18 14:13 Miscellaneous (Levalbuterol Hcl [Xopenex]) 0.31 mg IH Q6HR PRN PRN Reason: Shortness of Breath Miscellaneous (Omeprazole [Omeprazole]) 2 tab PO DAILY [facility] Stop: 12/30/18 08:59 Miscellaneous (Potassium Chloride [Potassium Chloride]) 20 meq PO DAILY [facility] Stop: 12/30/18 08:59 Neomycin Sulfate (Neomycin) 500 mg PO Q6HR [facility] Stop: 12/30/18 00:00 Sodium Phosphate (Fleet Enema) 135 ml RC Q48HR PRN PRN Reason: Constipation Stop: 12/29/18 19:31 General: no acute distress, cachectic, other HEENT: atraumatic, normocephalic, PERRLA, EOMI, moist mucous membrane Neck: supple, no thyromegaly Cardiovascular: S1S2, regular Lungs: clear to auscultation bilaterally, clear to percussion Abdomen: soft, no tender, no distended, no mass Extremities: no cyanosis, no clubbing, no edema Neurological: awake, alert, oriented Skin: intact, no rash - Procedures Procedures: Procedures Procedure Code Date DRAINAGE OF PERITONEAL CAVITY, PERCUTANEOUS APPROACH [id number] 10/14/18 Infectious Disease Assmt/Plan - Assessment Assessment: 1. UTI. 2. Acute renal failure on chronic renal failure. 3. Dementia. 4. Protein calorie malnutrition. 5. HTN. - Plan Plan: Continue the same treatment. F/u renal us. Antibiotics: Cefepime/
--- NOTE | 2018-10-31 00:12 | Consultation ---
DATE OF CONSULTATION: 10/29/2018 TIME OF CONSULTATION: 4 p.m. REQUESTING PHYSICIAN FOR CONSULTATION: Dr. Gerber. HISTORY OF PRESENT ILLNESS: This patient who has been brought in here is not able to speak Spanish, but she seems to be understanding. The patient seems to be in a poor shape. There is a history of the patient had cirrhosis of liver, but at present according to the chemistries, etiology not clear, and liver enzymes are not significantly elevated. The patient has a very short stature maybe 4 feet 7 inches, weighs only 72 pounds. The patient seemed to be looking to be dehydrated. Also, the patient is able to follow some gestures and able to follow signals like opening her mouth and I am able to examine her tongue, seemed to be a little bit dry. Jugular venous pressure clinically is not raised. Blood pressure recorded had been rather on the low side in 100/70, heart rate about only 60 per minute. Chest examination reveals good air entry. Rare rhonchi. No significant rales noticed. The patient does have significant skin lesions both in lower extremities, also on the abdomen. Both lower extremities, especially from the palacios downward are scraped and bleeding. There is a significant decrease in subcutaneous tissue and muscle mass and also subcutaneous fat. Pulses in the upper extremities are reasonably well felt. Heart sounds S1, S2 normally heard. No S3 or S4 noticed. Neurologically, the patient seemed to be intact without any significant problems, although difficult to say because the communication is poor. Lower extremities pulses seems to be poor and because of also collection of the old blood difficult to examine in certain areas. LABORATORY DATA: The patient's biochemical data available reveals the following: Troponin was 0.04. Hemoglobin was 12.1, WBC 6.4, platelet count 148. Sodium 136, potassium 3.5, chloride 100, CO2 content 26.0, glucose 123, BUN 72, creatinine 3.3, total protein 6.3, albumin 2.7. Liver enzymes essentially normal. IMPRESSION: 1. Considering the above, the patient definitely seems to be dehydrated. 2. The patient also has protein-calorie malnutrition. 3. Questionable history of cirrhosis of liver. 4. Anemia, which may become a little bit more prominent once the patient get more hydrated. 5. Azotemia, probably secondary to dehydration, it may improve. The patient may have also underlying chronic renal failure. PLAN: 1. Suggested at the present time, is to run a D5 half normal saline, so as to provide some glucose and dietitian to follow so as to provide a reasonably good diet. 2. Repeat chemistries tomorrow. 3. Monitor blood pressures. Depending on what the findings are, the patient's urine in the Medrano catheter looked pyuric, would consider getting a culture and then starting her some on antibiotic, preferably on the 2nd or 3rd generation cephalosporins. JOB# [id number]
[2018-10-31] MEDS: D5-0.45NS w/20 mEq KCL 1,000 ML IV SCH ×2 (04:05→18:12)
[2018-10-31 06:37] LABS: HEMATOCRIT 32.5 % (41.0-60); HEMOGLOBIN 10.8 gm/dL (12-16); MEAN CORPUSCULAR HEMOGLOBIN 36.3 pg (27.0-31.0); MEAN CORPUSCULAR HGB CONC 33.1 pg (28.0-36.0); MEAN PLATELET VOLUME 7.2 fl; PLATELET COUNT 117 Th/cmm (150-400); RED BLOOD COUNT 2.97 Mil/cmm (3.80-5.20); RED CELL DISTRIBUTION WIDTH 14.1 % (11.5-20.0); WHITE BLOOD COUNT 5.6 Th/cmm (4.8-10.8)
[2018-10-31 06:57] LABS: ALB/GLOB RATIO 0.7 (1.0-1.8); ALBUMIN 2.2 gm/dL (3.7-5.3); ALKALINE PHOSPHATASE 69 U/L (34-104); ANION GAP 11.7 (7.0-16.0); BILIRUBIN,TOTAL 0.6 mg/dL (0.3-1.0); BUN - UREA NITROGEN 62 mg/dL (7-25); CALCIUM SERUM 8.5 mg/dL (8.6-10.3); CARBON DIOXIDE 24.6 mEq/L (21.0-31.0); CHLORIDE 102 mEq/L (98-107); CREATININE - SERUM 2.4 mg/dL (0.6-1.2); GLUCOSE 101 mg/dL (70-105); POTASSIUM SERUM 4.3 mEq/L (3.5-5.1); SGOT 40 U/L (13-39); SGPT/ALT 24 U/L (7-52); SODIUM SERUM 134 mEq/L (136-145); TOTAL PROTEIN,SERUM 5.2 gm/dL (6.0-8.3)
[2018-10-31] MEDS ORDERED: OMEPRAZOLE PO SCH (09:00)
[2018-10-31] MEDS ORDERED: Non-Formulary Item 1 EA (Potassium Chloride [Potassium Chloride] 20 MEQ) PO SCH (09:00)
--- NOTE | 2018-10-31 09:05 | Diagnostic Imaging Report ---
Renal ultrasound HISTORY: Hydronephrosis., Pyelonephritis COMPARISON: CT abdomen and pelvis on 10/14/2018 Technique: Sonography of the kidneys and urinary bladder was performed in multiple planes. FINDINGS: The right kidney measures 7.8 x 4.9 cm. There is hypoechoic area along the superior pole measuring 1.6 x 1.6 cm. This is indeterminate and may represent a complex cyst. A solid lesion is less likely. There is an also an additional smaller cyst at the inferior pole measuring 0.8 x 0.8 cm. No hydronephrosis. The left kidney measures 7.7 x 4.36 cm. There is a exophytic cyst along the inferior pole measuring 4.6 x 3.6 cm. Medrano catheter seen within urinary bladder. The urinary bladder volume is 95 mL. Ascites is noted. IMPRESSION: No evidence of hydronephrosis. Indeterminate lesion of the superior aspect of the right kidney measuring 1.6 x 1.6 cm. This may represent a complex cyst. A solid lesion is less likely. This was not identified on previous CT examination without IV contrast on 10/14/2018. A follow-up CT with IV contrast would additional detail and assessment. Additional small inferior pole left renal cyst measuring 0.8 cm. Large inferior pole right renal cyst measuring 4.6 x 3.6 cm. Medrano catheter within urinary bladder Ascites.
[2018-10-31] MEDS: Multivitamin w/ Minerals Tab PO SCH (10:18)
[2018-10-31] MEDS: Potassium Chloride 20 mEq ER Tab PO SCH (10:18)
[2018-10-31] MEDS: Pantoprazole 40 mg EC Tab PO SCH (10:19)
[2018-10-31 11:39] LABS: NEUTROPHILS 64 % (40-80)
[2018-10-31 11:40] LABS: EOSINOPHIL 1 % (0-5); LYMPHOCYTE 29 % (20-50); MONOCYTE 6 % (2-10)
[2018-10-31 12:11] LABS: CORRECTED WBC 5.6 Th/cmm (4.8-10.8)
[2018-10-31 12:17] LABS: BAND NEUTROPHILE 1 % (0-10)
[2018-10-31 13:42] LABS: MEAN CELL VOLUME 109.5 fl (81-100)
--- NOTE | 2018-10-31 16:09 | History & Physical ---
ADMIT DATE: 10/29/2018 HISTORY OF PRESENT ILLNESS: The patient came to the Emergency Room at [facility]. The patient is known to have history of cirrhosis of the liver and history of ascites. The patient came to the Emergency Room complaining of abdominal pain. The patient was severely dehydrated with increasing BUN and creatinine and was admitted for increasing renal failure. PAST MEDICAL HISTORY: History of hypertension, history of cirrhosis of the liver, history of ascites, recurrent ascites, and history of severe malnutrition. PHYSICAL EXAMINATION: The patient was seen and the patient was examined. HEAD: Normal. ENT: Normal. LUNGS: Bilaterally decreased. CARDIOVASCULAR SYSTEM: S1, S2 heard. ABDOMEN: Distended. Ascites is noted. EXTREMITIES: Revealed no edema. LABORATORY DATA: The patient's albumin is very low at 2.7. DIAGNOSES: Severe dehydration, acute renal failure, protein-calorie malnutrition, history of cirrhosis of the liver, anemia. PLAN: The patient is going to be admitted and given IV fluids and repeat the chemistries and we will monitor. I will have Infectious Disease doctor to come and see and make sure the patient ____ spontaneous bacterial peritonitis and the patient does have urinary tract infection. We will treat the UTI and we will control hypertension. We will put her on a tele monitor. JOB# [id number]
--- NOTE | 2018-10-31 17:00 | General Progress Note ---
Subjective - Review of Systems Service Date: 10/31/18 Subjective: 87 y/o female patient c/o abdominal pain, remains very lethargic. Objective - Results Result Diagrams: 10/31/18 06:05 10/31/18 06:05 Recent Labs: Laboratory Last Values WBC 5.6 Th/cmm (4.8-10.8) 10/31/18 06:05 Corrected WBC (auto) 5.6 Th/cmm (4.8-10.8) 10/31/18 06:05 RBC 2.97 Mil/cmm (3.80-5.20) L 10/31/18 06:05 Hgb 10.8 gm/dL (12-16) L 10/31/18 06:05 Hct 32.5 % (41.0-60) L 10/31/18 06:05 MCV 109.5 fl (81-100) H 10/31/18 06:05 MCH 36.3 pg (27.0-31.0) H 10/31/18 06:05 MCHC Differential 33.1 pg (28.0-36.0) 10/31/18 06:05 RDW 14.1 % (11.5-20.0) 10/31/18 06:05 Plt Count 117 Th/cmm (150-400) L 10/31/18 06:05 MPV 7.2 fl 10/31/18 06:05 Add Manual Diff YES 10/31/18 06:05 Neutrophils % 64.0 % (40.0-80.0) 10/31/18 06:05 Band Neutrophils % 1 % (0-10) 10/31/18 06:05 Lymphocytes % 29.0 % (20.0-50.0) 10/31/18 06:05 Monocytes % 6.0 % (2.0-10.0) 10/31/18 06:05 Eosinophils % 1.0 % (0.0-5.0) 10/31/18 06:05 Basophils % WATER RESOURCE CONSULTANT 10/31/18 06:05 Neutrophils (Manual) 64 % (40-80) 10/31/18 06:05 Lymphocytes 29 % (20-50) 10/31/18 06:05 Monocytes 6 % (2-10) 10/31/18 06:05 Eosinophils 1 % (0-5) 10/31/18 06:05 Basophils 0 % (0-3) 10/30/18 07:35 Macrocytosis 1+ 10/30/18 07:35 Smear Path Review N 10/31/18 06:05 PT 10.7 SECONDS (9.5-11.5) 10/29/18 10:20 INR 1.03 (0.5-1.4) 10/29/18 10:20 PTT (Actin FS) 28.7 SECONDS (26.0-38.0) 10/29/18 10:20 Sodium 134 mEq/L (136-145) L 10/31/18 06:05 Potassium 4.3 mEq/L (3.5-5.1) 10/31/18 06:05 Chloride 102 mEq/L (98-107) 10/31/18 06:05 Carbon Dioxide 24.6 mEq/L (21.0-31.0) 10/31/18 06:05 Anion Gap 11.7 (7.0-16.0) 10/31/18 06:05 BUN 62 mg/dL (7-25) H 10/31/18 06:05 Creatinine 2.4 mg/dL (0.6-1.2) H 10/31/18 06:05 Est GFR ( Amer) TNP 10/31/18 06:05 Est GFR (Non-Af Amer) TNP 10/31/18 06:05 BUN/Creatinine Ratio 25.8 10/31/18 06:05 Glucose 101 mg/dL (70-105) 10/31/18 06:05 Whole Bld Lactic Acid 1.18 mmol/L (0.60-1.99) 10/30/18 07:35 Calcium 8.5 mg/dL (8.6-10.3) L 10/31/18 06:05 Magnesium 2.3 mg/dL (1.9-2.7) 10/29/18 10:20 Total Bilirubin 0.6 mg/dL (0.3-1.0) 10/31/18 06:05 AST 40 U/L (13-39) H 10/31/18 06:05 ALT 24 U/L (7-52) 10/31/18 06:05 Alkaline Phosphatase 69 U/L (34-104) 10/31/18 06:05 Ammonia 26 umol/L (16-53) 10/30/18 07:35 Troponin I 0.04 ng/mL (0.01-0.05) 10/29/18 10:20 Total Protein 5.2 gm/dL (6.0-8.3) L 10/31/18 06:05 Albumin 2.2 gm/dL (3.7-5.3) L 10/31/18 06:05 Globulin 3.0 gm/dL 10/31/18 06:05 Albumin/Globulin Ratio 0.7 (1.0-1.8) L 10/31/18 06:05 TSH 2.78 uIU/ml (0.34-5.60) 10/29/18 10:20 Urine Source NEUMANN PORT 10/29/18 18:00 Urine Color YELLOW 10/29/18 18:00 Urine Clarity CLOUDY (CLEAR) H 10/29/18 18:00 Urine pH 5.5 (4.6 - 8.0) 10/29/18 18:00 Ur Specific [place] <= 1.005 (1.005-1.030) 10/29/18 18:00 Urine Protein NEGATIVE mg/dL (NEGATIVE) 10/29/18 18:00 Urine Glucose (UA) NEGATIVE mg/dL (NEGATIVE) 10/29/18 18:00 Urine Ketones NEGATIVE mg/dL (NEGATIVE) 10/29/18 18:00 Urine Blood SMALL (NEGATIVE) H 10/29/18 18:00 Urine Nitrate NEGATIVE (NEGATIVE) 10/29/18 18:00 Urine Bilirubin NEGATIVE (NEGATIVE) 10/29/18 18:00 Urine Urobilinogen 0.2 E.U./dL (0.2 - 1.0) 10/29/18 18:00 Ur Leukocyte Esterase LARGE (NEGATIVE) H 10/29/18 18:00 Urine RBC 2-5 /hpf (0-5) 10/29/18 18:00 Urine WBC 50-100 /hpf (0-5) H 10/29/18 18:00 Ur Epithelial Cells FEW /lpf (FEW) 10/29/18 18:00 Urine Bacteria MANY /hpf (NONE SEEN) H 10/29/18 18:00 - Physical Exam Vitals and I&O: Vital Signs Temp 96.7 F 10/31/18 15:54 Pulse 57 10/31/18 15:54 Resp 18 10/31/18 15:54 BP 86/56 10/31/18 15:54 Pulse Ox 97 10/31/18 15:54 Intake & Output 10/30/18 10/31/18 10/31/18 18:59 06:59 18:59 Intake Total 1000 1000 Balance 1000 1000 Intake: Intake, IV Amount 1000 1000 D5-0.45NS w/20 mEq KCL 1, 1000 1000 000 ml @ 75 mls/hr IV . [id number] [facility] Rx#:[id number] Active Medications: Current Medications Albuterol Sulfate (Albuterol 2.5mg/3ml Neb Ud) 2.5 mg HHN Q6HR PRN PRN Reason: Shortness of Breath Ascorbic Acid (Vitamin C) 500 mg PO DAILY [facility] Stop: 12/30/18 08:59 Last Admin: 10/31/18 10:19 Dose: 500 mg Bisacodyl (Dulcolax 10 Mg Supp) 10 mg RC DAILY PRN PRN Reason: Constipation Stop: 12/29/18 19:31 Docusate Sodium (Colace) 250 mg PO DAILY [facility] Stop: 12/30/18 08:59 Last Admin: 10/31/18 10:19 Dose: 250 mg Furosemide (Lasix) 40 mg PO DAILY [facility] Stop: 12/30/18 08:59 Last Admin: 10/31/18 10:19 Dose: Not Given Heparin Sodium (Porcine) (Heparin) 5,000 units SUBQ Q12HR [facility] Stop: 12/28/18 20:59 Last Admin: 10/31/18 10:20 Dose: 5,000 units Potassium Chloride/Dextrose/Sod Cl (D5-0.45ns W/20 Meq Kcl) 1,000 mls @ 75 mls/ hr IV .[id number] [facility] Stop: 12/29/18 00:14 Last Admin: 10/31/18 04:05 Dose: 75 mls/hr Cefepime HCl 1 gm/ Sodium (Chloride) 50 mls @ 100 mls/hr IV Q24HR [facility] Stop: 12/29/18 20:59 Last Admin: 10/30/18 20:22 Dose: 100 mls/hr Ibuprofen (Motrin) 400 mg PO Q6H PRN PRN Reason: Pain or Fever >101 Stop: 12/29/18 19:31 Last Admin: 10/31/18 00:13 Dose: 400 mg Magnesium Hydroxide (Milk Of Magnesia) 30 ml PO DAILY PRN PRN Reason: Constipation Stop: 12/29/18 19:31 Miscellaneous (Vte Chemical Prophylaxis Screen/ Admission) 1 ea [facility] PRN PRN PRN Reason: PROTOCOL Stop: 12/28/18 14:13 Neomycin Sulfate (Neomycin) 500 mg PO Q6HR [facility] Stop: 12/30/18 00:00 Last Admin: 10/31/18 13:03 Dose: 500 mg Pantoprazole Sodium (Protonix) 40 mg PO QDAC [facility] Stop: 12/30/18 07:29 Last Admin: 10/31/18 10:19 Dose: 40 mg Potassium Chloride (Klor-Con) 20 meq PO DAILY [facility] Stop: 12/30/18 08:59 Last Admin: 10/31/18 10:18 Dose: 20 meq Sodium Phosphate (Fleet Enema) 135 ml RC Q48HR PRN PRN Reason: Constipation Stop: 12/29/18 19:31 General: Alert Neck: Supple Cardiovascular: Regular rate Lungs: Other (Bilaterally decreased) Abdomen: Bowel sounds, Soft, Other (complains of abdominal pain and discomfort.) Extremities: Other (Generalized Weakness.) Psych/Mental Status: Mood NL, Other - Procedures Procedures: Procedures Procedure Code Date DRAINAGE OF PERITONEAL CAVITY, PERCUTANEOUS APPROACH [id number] 10/14/18 Assessment/Plan - Assessment Assessment: UTI Acute renal failure on Chronic renal failure Dementia Protein Calorie Malnutrition HTN History of Cirrhosis of the Liver History of Ascites Recurrent Ascites - Plan Plan: Monitor pain, pain management continue antibiotics and present meds as directed Monitor nutritional status, keep hydrated Monitor patient closely CPM Nutritional Asmnt/Malnutr-PDOC - Dietary Evaluation Malnutrition Findings (Please click <Entered> for more info): Nutritional Asmnt/Malnutrition Start: 10/31/18 13: 39 Text: Status: Complete Freq: Protocol: Document 10/31/18 13:39 [email or web address] (Rec: 10/31/18 13:56 [email or web address]) Nutritional Asmnt/Malnutrition Patient General Information Nutritional Screening High Risk Consult Diagnosis increasing renal failure, cachexia Pertinent Medical Hx/Surgical Hx HTN, PUD/GERD, arthritis, dementia, liver disease Subjective Information Consult recieved for steven score 12. Pt was seen being fed by DIRECTOR OF CODING at time of visit. Pt only wanted coffee and was picking at her food. PO intake is 0-50%. Food preferences taken, pt agreed to try nutritional supplement. Current Diet Order/ Nutrition Support [facility] soft ground Pertinent Medications vit c, colace, lasix, heparin, neomycin, d5-0.45ns w/ KCl, sodium phosphate Pertinent Labs 10/31 Na 134, BUN 62, Cr 2.4, ca 8.5, alb 2.2 10/30 Na 132, BUN 65, cr 2.6, glucose 133 Nutritional Hx/Data Height 1.47 m Height (Calculated Centimeters) 147.3 Current Weight (lbs) 32.659 kg Weight (Calculated Kilograms) 32.7 Weight (Calculated Grams) 50006.7 [place] Body Weight 96 Body Mass Index (BMI) 15.0 Weight Status Underweight GI Symptoms GI Symptoms None Last BM 10/30 Difficult in: None Food Allergies No Skin Integrity/Comment: wounds: left abdomen, left lateral trunk, left posterior trunk, left sacral area steven 12 Current %PO Poor (25-49%) Estimated Nutritional Goals BEE in Kcals: Using Current wt Calories/Kcals/Kg 35-40 Kcals Calculated 1594-6869 Protein: Using Current wt Protein g/k.2-1.4 monitor renal labs Protein Calculated 39-46 Fluid: ml 981-1145 (1ml/kcal) Nutritional Problem 2. Problem Problem altered nutrition related labs Etiology renal dysfunction Signs/Symptoms: BUN 62-65, Cr 2.4-2.6 1. Problem Problem inadequate energy/protein intake Etiology poor appetite and food preference Signs/Symptoms: PO intake <50% Malnutrition Alert Body Fat Depletion (Severe) Mod to Severe Depletion Muscle Mass (Severe) Mod to Severe Depletion Protein-Calorie Malnutrition Severe Is there a minimum of two criteria Yes selected? Query Text:Check all the applicable criteria. A minimum of two criteria are recommended for diagnosis of either severe or non-severe malnutrition. Malnutrition Related to Morbid Obesity Malnutrition related to morbid obesity No Intervention/Recommendation Comments 1. Continue with [facility] soft ground diet as ordered. PO intake is low and no need for protein limit at this time. Will continue monitor renal labs. 2. Add Ensure TID for extra kcal and protein 3. Add Eulogio BID for wound healing 4. Monitor PO intake, wt, labs and skin integrity 5. F/U as high risk in 2-3 days Expected Outcomes/Goals Expected Outcomes/Goals 1. PO intake to meet at least 75% of nutritional needs. 2. Wt stability, skin to remain intact, labs to approach WNL. Reviewed by Autumn Modi RD
[2018-10-31] MEDS: Cefepime 1 GM in Sodium Chloride 0.9% 50 ML IV SCH (21:42)
[2018-11-01] MEDS: Pantoprazole 40 mg EC Tab PO SCH (06:37)
[2018-11-01] MEDS: Multivitamin w/ Minerals Tab PO SCH (09:49)
[2018-11-01] MEDS: Potassium Chloride 20 mEq ER Tab PO SCH (09:49)
[2018-11-01] MEDS: D5-0.45NS w/20 mEq KCL 1,000 ML IV SCH (12:17)
--- NOTE | 2018-11-01 13:07 | Infectious Disease Prog Note ---
Infectious Disease Subjective - Review of Systems Service Date: 11/01/18 Subjective: no change, no fever. Infectious Disease Objective - Results Result Diagrams: 10/31/18 06:05 10/31/18 06:05 Recent Labs: Laboratory Last Values WBC 5.6 Th/cmm (4.8-10.8) 10/31/18 06:05 Corrected WBC (auto) 5.6 Th/cmm (4.8-10.8) 10/31/18 06:05 RBC 2.97 Mil/cmm (3.80-5.20) L 10/31/18 06:05 Hgb 10.8 gm/dL (12-16) L 10/31/18 06:05 Hct 32.5 % (41.0-60) L 10/31/18 06:05 MCV 109.5 fl (81-100) H 10/31/18 06:05 MCH 36.3 pg (27.0-31.0) H 10/31/18 06:05 MCHC Differential 33.1 pg (28.0-36.0) 10/31/18 06:05 RDW 14.1 % (11.5-20.0) 10/31/18 06:05 Plt Count 117 Th/cmm (150-400) L 10/31/18 06:05 MPV 7.2 fl 10/31/18 06:05 Add Manual Diff YES 10/31/18 06:05 Neutrophils % 64.0 % (40.0-80.0) 10/31/18 06:05 Band Neutrophils % 1 % (0-10) 10/31/18 06:05 Lymphocytes % 29.0 % (20.0-50.0) 10/31/18 06:05 Monocytes % 6.0 % (2.0-10.0) 10/31/18 06:05 Eosinophils % 1.0 % (0.0-5.0) 10/31/18 06:05 Basophils % REAL ESTATE LISTING CONSULTANT 10/31/18 06:05 Neutrophils (Manual) 64 % (40-80) 10/31/18 06:05 Lymphocytes 29 % (20-50) 10/31/18 06:05 Monocytes 6 % (2-10) 10/31/18 06:05 Eosinophils 1 % (0-5) 10/31/18 06:05 Basophils 0 % (0-3) 10/30/18 07:35 Macrocytosis 1+ 10/30/18 07:35 Smear Path Review N 10/31/18 06:05 PT 10.7 SECONDS (9.5-11.5) 10/29/18 10:20 INR 1.03 (0.5-1.4) 10/29/18 10:20 PTT (Actin FS) 28.7 SECONDS (26.0-38.0) 10/29/18 10:20 Sodium 134 mEq/L (136-145) L 10/31/18 06:05 Potassium 4.3 mEq/L (3.5-5.1) 10/31/18 06:05 Chloride 102 mEq/L (98-107) 10/31/18 06:05 Carbon Dioxide 24.6 mEq/L (21.0-31.0) 10/31/18 06:05 Anion Gap 11.7 (7.0-16.0) 10/31/18 06:05 BUN 62 mg/dL (7-25) H 10/31/18 06:05 Creatinine 2.4 mg/dL (0.6-1.2) H 10/31/18 06:05 Est GFR ( Amer) TNP 10/31/18 06:05 Est GFR (Non-Af Amer) TNP 10/31/18 06:05 BUN/Creatinine Ratio 25.8 10/31/18 06:05 Glucose 101 mg/dL (70-105) 10/31/18 06:05 Whole Bld Lactic Acid 1.18 mmol/L (0.60-1.99) 10/30/18 07:35 Calcium 8.5 mg/dL (8.6-10.3) L 10/31/18 06:05 Magnesium 2.3 mg/dL (1.9-2.7) 10/29/18 10:20 Total Bilirubin 0.6 mg/dL (0.3-1.0) 10/31/18 06:05 AST 40 U/L (13-39) H 10/31/18 06:05 ALT 24 U/L (7-52) 10/31/18 06:05 Alkaline Phosphatase 69 U/L (34-104) 10/31/18 06:05 Ammonia 26 umol/L (16-53) 10/30/18 07:35 Troponin I 0.04 ng/mL (0.01-0.05) 10/29/18 10:20 Total Protein 5.2 gm/dL (6.0-8.3) L 10/31/18 06:05 Albumin 2.2 gm/dL (3.7-5.3) L 10/31/18 06:05 Globulin 3.0 gm/dL 10/31/18 06:05 Albumin/Globulin Ratio 0.7 (1.0-1.8) L 10/31/18 06:05 TSH 2.78 uIU/ml (0.34-5.60) 10/29/18 10:20 Urine Source NEUMANN [place] 10/29/18 18:00 Urine Color YELLOW 10/29/18 18:00 Urine Clarity CLOUDY (CLEAR) H 10/29/18 18:00 Urine pH 5.5 (4.6 - 8.0) 10/29/18 18:00 Ur Specific [place] <= 1.005 (1.005-1.030) 10/29/18 18:00 Urine Protein NEGATIVE mg/dL (NEGATIVE) 10/29/18 18:00 Urine Glucose (UA) NEGATIVE mg/dL (NEGATIVE) 10/29/18 18:00 Urine Ketones NEGATIVE mg/dL (NEGATIVE) 10/29/18 18:00 Urine Blood SMALL (NEGATIVE) H 10/29/18 18:00 Urine Nitrate NEGATIVE (NEGATIVE) 10/29/18 18:00 Urine Bilirubin NEGATIVE (NEGATIVE) 10/29/18 18:00 Urine Urobilinogen 0.2 E.U./dL (0.2 - 1.0) 10/29/18 18:00 Ur Leukocyte Esterase LARGE (NEGATIVE) H 10/29/18 18:00 Urine RBC 2-5 /hpf (0-5) 10/29/18 18:00 Urine WBC 50-100 /hpf (0-5) H 10/29/18 18:00 Ur Epithelial Cells FEW /lpf (FEW) 10/29/18 18:00 Urine Bacteria MANY /hpf (NONE SEEN) H 10/29/18 18:00 - Physical Exam Vitals and I&O: Vital Signs Temp 96.8 F 11/01/18 12:00 Pulse 56 11/01/18 12:00 Resp 17 01/29/19 12:00 BP 139/62 11/01/18 12:00 Pulse Ox 96 11/01/18 12:00 Intake & Output 10/31/18 11/01/18 11/01/18 18:59 06:59 18:59 Intake Total 1000 50 1000 Output Total 350 Balance 1000 -300 1000 Weight (lbs) 32.659 kg Intake: Intake, IV Amount 1000 1000 D5-0.45NS w/20 mEq KCL 1, 1000 1000 000 ml @ 75 mls/hr IV . [id number] [facility] Rx#:[id number] Oral 50 Output: Urine 350 Other: # Bowel Movements 1 Weight Source Bedscale Active Medications: Current Medications Albuterol Sulfate (Albuterol 2.5mg/3ml Neb Ud) 2.5 mg HHN Q6HR PRN PRN Reason: Shortness of Breath Ascorbic Acid (Vitamin C) 500 mg PO DAILY [facility] Stop: 12/30/18 08:59 Last Admin: 11/01/18 09:49 Dose: 500 mg Bisacodyl (Dulcolax 10 Mg Supp) 10 mg RC DAILY PRN PRN Reason: Constipation Stop: 12/29/18 19:31 Docusate Sodium (Colace) 250 mg PO DAILY [facility] Stop: 12/30/18 08:59 Last Admin: 11/01/18 09:49 Dose: 250 mg Furosemide (Lasix) 40 mg PO DAILY [facility] Stop: 12/30/18 08:59 Last Admin: 11/01/18 09:42 Dose: Not Given Heparin Sodium (Porcine) (Heparin) 5,000 units SUBQ Q12HR [facility] Stop: 12/28/18 20:59 Last Admin: 11/01/18 09:43 Dose: Not Given Potassium Chloride/Dextrose/Sod Cl (D5-0.45ns W/20 Meq Kcl) 1,000 mls @ 75 mls/ hr IV .[id number] [facility] Stop: 12/29/18 00:14 Last Admin: 11/01/18 12:17 Dose: 75 mls/hr Cefepime HCl 1 gm/ Sodium (Chloride) 50 mls @ 100 mls/hr IV Q24HR [facility] Stop: 12/29/18 20:59 Last Admin: 10/31/18 21:42 Dose: 100 mls/hr Ibuprofen (Motrin) 400 mg PO Q6H PRN PRN Reason: Pain or Fever >101 Stop: 12/29/18 19:31 Last Admin: 11/01/18 00:05 Dose: 400 mg Magnesium Hydroxide (Milk Of Magnesia) 30 ml PO DAILY PRN PRN Reason: Constipation Stop: 12/29/18 19:31 Miscellaneous (Vte Chemical Prophylaxis Screen/ Admission) 1 ea [facility] PRN PRN PRN Reason: PROTOCOL Stop: 12/28/18 14:13 Neomycin Sulfate (Neomycin) 500 mg PO Q6HR [facility] Stop: 12/30/18 00:00 Last Admin: 11/01/18 12:17 Dose: 500 mg Pantoprazole Sodium (Protonix) 40 mg PO QDAC [facility] Stop: 12/30/18 07:29 Last Admin: 11/01/18 06:37 Dose: 40 mg Potassium Chloride (Klor-Con) 20 meq PO DAILY [facility] Stop: 12/30/18 08:59 Last Admin: 11/01/18 09:49 Dose: 20 meq Sodium Phosphate (Fleet Enema) 135 ml RC Q48HR PRN PRN Reason: Constipation Stop: 12/29/18 19:31 General: no acute distress, well developed, well nourished HEENT: atraumatic, normocephalic, PERRLA, EOMI Neck: supple, thyromegaly Cardiovascular: S1S2, no regular Lungs: clear to auscultation bilaterally, clear to percussion Abdomen: soft, no tender, no distended Extremities: no cyanosis, no clubbing, no edema Neurological: awake, alert, oriented Skin: intact - Procedures Procedures: Procedures Procedure Code Date DRAINAGE OF PERITONEAL CAVITY, PERCUTANEOUS APPROACH [id number] 10/14/18 Infectious Disease Assmt/Plan - Assessment Assessment: 1. UTI. 2. Acute renal failure on chronic renal failure. 3. Dementia. 4. Protein calorie malnutrition. 5. HTN. - Plan Plan: Continue the same treatment. F/u renal us. change Antibiotics to diflucan po. Nutritional Asmnt/Malnutr-PDOC - Dietary Evaluation Malnutrition Findings (Please click <Entered> for more info): Nutritional Asmnt/Malnutrition Start: 10/31/18 13: 39 Text: Status: Complete Freq: Protocol: Document 10/31/18 13:39 [email or web address] (Rec: 10/31/18 13:56 [email or web address] LEONEL) Nutritional Asmnt/Malnutrition Patient General Information Nutritional Screening High Risk Consult Diagnosis increasing renal failure, cachexia Pertinent Medical Hx/Surgical Hx HTN, PUD/GERD, arthritis, dementia, liver disease Subjective Information Consult recieved for steven score 12. Pt was seen being fed by WATCH REPAIRER APPRENTICE at time of visit. Pt only wanted coffee and was picking at her food. PO intake is 0-50%. Food preferences taken, pt agreed to try nutritional supplement. Current Diet Order/ Nutrition Support [facility] soft ground Pertinent Medications vit c, colace, lasix, heparin, neomycin, d5-0.45ns w/ KCl, sodium phosphate Pertinent Labs 10/31 Na 134, BUN 62, Cr 2.4, ca 8.5, alb 2.2 10/30 Na 132, BUN 65, cr 2.6, glucose 133 Nutritional Hx/Data Height 1.47 m Height (Calculated Centimeters) 147.3 Current Weight (lbs) 32.659 kg Weight (Calculated Kilograms) 32.7 Weight (Calculated Grams) 92889.7 [place] Body Weight 96 Body Mass Index (BMI) 15.0 Weight Status Underweight GI Symptoms GI Symptoms None Last BM 10/30 Difficult in: None Food Allergies No Skin Integrity/Comment: wounds: left abdomen, left lateral trunk, left posterior trunk, left sacral area steven 12 Current %PO Poor (25-49%) Estimated Nutritional Goals BEE in Kcals: Using Current wt Calories/Kcals/Kg 35-40 Kcals Calculated 2841-7058 Protein: Using Current wt Protein g/k.2-1.4 monitor renal labs Protein Calculated 39-46 Fluid: ml 981-1145 (1ml/kcal) Nutritional Problem 2. Problem Problem altered nutrition related labs Etiology renal dysfunction Signs/Symptoms: BUN 62-65, Cr 2.4-2.6 1. Problem Problem inadequate energy/protein intake Etiology poor appetite and food preference Signs/Symptoms: PO intake <50% Malnutrition Alert Body Fat Depletion (Severe) Mod to Severe Depletion Muscle Mass (Severe) Mod to Severe Depletion Protein-Calorie Malnutrition Severe Is there a minimum of two criteria Yes selected? Query Text:Check all the applicable criteria. A minimum of two criteria are recommended for diagnosis of either severe or non-severe malnutrition. Malnutrition Related to Morbid Obesity Malnutrition related to morbid obesity No Intervention/Recommendation Comments 1. Continue with [facility] soft ground diet as ordered. PO intake is low and no need for protein limit at this time. Will continue monitor renal labs. 2. Add Ensure TID for extra kcal and protein 3. Add Eulogio BID for wound healing 4. Monitor PO intake, wt, labs and skin integrity 5. F/U as high risk in 2-3 days Expected Outcomes/Goals Expected Outcomes/Goals 1. PO intake to meet at least 75% of nutritional needs. 2. Wt stability, skin to remain intact, labs to approach WNL. Reviewed by Autumn Modi RD
[2018-11-01 13:10] LABS: HEP A AB IGM Negative (Negative); HEP B CORE IGM Negative (Negative); HEP B SURFACE AG QL Positive (Negative); HEP C ANTIBODY <0.1 s/co ratio (0.0-0.9)
--- NOTE | 2018-11-01 13:56 | Internal Medicine Prog Note ---
Internal Medicine Subjective - Subjective Service Date: 11/01/18 Patient seen and examined:: with staff Patient is:: awake, verbal Per staff patient has:: tolerating meds Internal Medicine Objective - Results Result Diagrams: 10/31/18 06:05 10/31/18 06:05 Recent Labs: Laboratory Last Values WBC 5.6 Th/cmm (4.8-10.8) 10/31/18 06:05 Corrected WBC (auto) 5.6 Th/cmm (4.8-10.8) 10/31/18 06:05 RBC 2.97 Mil/cmm (3.80-5.20) L 10/31/18 06:05 Hgb 10.8 gm/dL (12-16) L 10/31/18 06:05 Hct 32.5 % (41.0-60) L 10/31/18 06:05 MCV 109.5 fl (81-100) H 10/31/18 06:05 MCH 36.3 pg (27.0-31.0) H 10/31/18 06:05 MCHC Differential 33.1 pg (28.0-36.0) 10/31/18 06:05 RDW 14.1 % (11.5-20.0) 10/31/18 06:05 Plt Count 117 Th/cmm (150-400) L 10/31/18 06:05 MPV 7.2 fl 10/31/18 06:05 Add Manual Diff YES 10/31/18 06:05 Neutrophils % 64.0 % (40.0-80.0) 10/31/18 06:05 Band Neutrophils % 1 % (0-10) 10/31/18 06:05 Lymphocytes % 29.0 % (20.0-50.0) 10/31/18 06:05 Monocytes % 6.0 % (2.0-10.0) 10/31/18 06:05 Eosinophils % 1.0 % (0.0-5.0) 10/31/18 06:05 Basophils % [employer] 10/31/18 06:05 Neutrophils (Manual) 64 % (40-80) 10/31/18 06:05 Lymphocytes 29 % (20-50) 10/31/18 06:05 Monocytes 6 % (2-10) 10/31/18 06:05 Eosinophils 1 % (0-5) 10/31/18 06:05 Basophils 0 % (0-3) 10/30/18 07:35 Macrocytosis 1+ 10/30/18 07:35 Smear Path Review N 10/31/18 06:05 PT 10.7 SECONDS (9.5-11.5) 10/29/18 10:20 INR 1.03 (0.5-1.4) 10/29/18 10:20 PTT (Actin FS) 28.7 SECONDS (26.0-38.0) 10/29/18 10:20 Sodium 134 mEq/L (136-145) L 10/31/18 06:05 Potassium 4.3 mEq/L (3.5-5.1) 10/31/18 06:05 Chloride 102 mEq/L (98-107) 10/31/18 06:05 Carbon Dioxide 24.6 mEq/L (21.0-31.0) 10/31/18 06:05 Anion Gap 11.7 (7.0-16.0) 10/31/18 06:05 BUN 62 mg/dL (7-25) H 10/31/18 06:05 Creatinine 2.4 mg/dL (0.6-1.2) H 10/31/18 06:05 Est GFR ( Amer) TNP 10/31/18 06:05 Est GFR (Non-Af Amer) TNP 10/31/18 06:05 BUN/Creatinine Ratio 25.8 10/31/18 06:05 Glucose 101 mg/dL (70-105) 10/31/18 06:05 Whole Bld Lactic Acid 1.18 mmol/L (0.60-1.99) 10/30/18 07:35 Calcium 8.5 mg/dL (8.6-10.3) L 10/31/18 06:05 Magnesium 2.3 mg/dL (1.9-2.7) 10/29/18 10:20 Total Bilirubin 0.6 mg/dL (0.3-1.0) 10/31/18 06:05 AST 40 U/L (13-39) H 10/31/18 06:05 ALT 24 U/L (7-52) 10/31/18 06:05 Alkaline Phosphatase 69 U/L (34-104) 10/31/18 06:05 Ammonia 26 umol/L (16-53) 10/30/18 07:35 Troponin I 0.04 ng/mL (0.01-0.05) 10/29/18 10:20 Total Protein 5.2 gm/dL (6.0-8.3) L 10/31/18 06:05 Albumin 2.2 gm/dL (3.7-5.3) L 10/31/18 06:05 Globulin 3.0 gm/dL 10/31/18 06:05 Albumin/Globulin Ratio 0.7 (1.0-1.8) L 10/31/18 06:05 TSH 2.78 uIU/ml (0.34-5.60) 10/29/18 10:20 Urine Source NEUMANN [place] 10/29/18 18:00 Urine Color YELLOW 10/29/18 18:00 Urine Clarity CLOUDY (CLEAR) H 10/29/18 18:00 Urine pH 5.5 (4.6 - 8.0) 10/29/18 18:00 Ur Specific [place] <= 1.005 (1.005-1.030) 10/29/18 18:00 Urine Protein NEGATIVE mg/dL (NEGATIVE) 10/29/18 18:00 Urine Glucose (UA) NEGATIVE mg/dL (NEGATIVE) 10/29/18 18:00 Urine Ketones NEGATIVE mg/dL (NEGATIVE) 10/29/18 18:00 Urine Blood SMALL (NEGATIVE) H 10/29/18 18:00 Urine Nitrate NEGATIVE (NEGATIVE) 10/29/18 18:00 Urine Bilirubin NEGATIVE (NEGATIVE) 10/29/18 18:00 Urine Urobilinogen 0.2 E.U./dL (0.2 - 1.0) 10/29/18 18:00 Ur Leukocyte Esterase LARGE (NEGATIVE) H 10/29/18 18:00 Urine RBC 2-5 /hpf (0-5) 10/29/18 18:00 Urine WBC 50-100 /hpf (0-5) H 10/29/18 18:00 Ur Epithelial Cells FEW /lpf (FEW) 10/29/18 18:00 Urine Bacteria MANY /hpf (NONE SEEN) H 10/29/18 18:00 Hepatitis A IgM Ab Negative (Negative) 10/31/18 06:05 Hep Bs Antigen Positive (Negative) H 10/31/18 06:05 Hep B Core IgM Ab Negative (Negative) 10/31/18 06:05 Hepatitis C Antibody <0.1 s/co ratio (0.0-0.9) 10/31/18 06:05 - Physical Exam Vitals and I&O: Vital Signs Temp 96.8 F 11/01/18 12:00 Pulse 56 11/01/18 12:00 Resp 17 11/01/18 12:00 BP 139/62 11/01/18 12:00 Pulse Ox 96 11/01/18 12:00 Intake & Output 10/31/18 11/01/18 11/01/18 18:59 06:59 18:59 Intake Total 1000 50 1000 Output Total 350 Balance 1000 -300 1000 Weight (lbs) 72 lb Intake: Intake, IV Amount 1000 1000 D5-0.45NS w/20 mEq KCL 1, 1000 1000 000 ml @ 75 mls/hr IV . [id number] [facility] Rx#:[id number] Oral 50 Output: Urine 350 Other: # Bowel Movements 1 Weight Source Bedscale Active Medications: Current Medications Albuterol Sulfate (Albuterol 2.5mg/3ml Neb Ud) 2.5 mg HHN Q6HR PRN PRN Reason: Shortness of Breath Ascorbic Acid (Vitamin C) 500 mg PO DAILY [facility] Stop: 12/30/18 08:59 Last Admin: 11/01/18 09:49 Dose: 500 mg Bisacodyl (Dulcolax 10 Mg Supp) 10 mg RC DAILY PRN PRN Reason: Constipation Stop: 12/29/18 19:31 Docusate Sodium (Colace) 250 mg PO DAILY [facility] Stop: 12/30/18 08:59 Last Admin: 11/01/18 09:49 Dose: 250 mg Fluconazole (Diflucan) 100 mg PO DAILY [facility] Stop: 12/31/18 13:14 Furosemide (Lasix) 40 mg PO DAILY [facility] Stop: 12/30/18 08:59 Last Admin: 11/01/18 09:42 Dose: Not Given Heparin Sodium (Porcine) (Heparin) 5,000 units SUBQ Q12HR [facility] Stop: 12/28/18 20:59 Last Admin: 11/01/18 09:43 Dose: Not Given Potassium Chloride/Dextrose/Sod Cl (D5-0.45ns W/20 Meq Kcl) 1,000 mls @ 75 mls/ hr IV .[id number] [facility] Stop: 12/29/18 00:14 Last Admin: 11/01/18 12:17 Dose: 75 mls/hr Cefepime HCl 1 gm/ Sodium (Chloride) 50 mls @ 100 mls/hr IV Q24HR [facility] Stop: 12/29/18 20:59 Last Admin: 10/31/18 21:42 Dose: 100 mls/hr Ibuprofen (Motrin) 400 mg PO Q6H PRN PRN Reason: Pain or Fever >101 Stop: 12/29/18 19:31 Last Admin: 11/01/18 00:05 Dose: 400 mg Magnesium Hydroxide (Milk Of Magnesia) 30 ml PO DAILY PRN PRN Reason: Constipation Stop: 12/29/18 19:31 Miscellaneous (Vte Chemical Prophylaxis Screen/ Admission) 1 ea [facility] PRN PRN PRN Reason: PROTOCOL Stop: 12/28/18 14:13 Neomycin Sulfate (Neomycin) 500 mg PO Q6HR [facility] Stop: 12/30/18 00:00 Last Admin: 11/01/18 12:17 Dose: 500 mg Pantoprazole Sodium (Protonix) 40 mg PO QDAC [facility] Stop: 12/30/18 07:29 Last Admin: 11/01/18 06:37 Dose: 40 mg Potassium Chloride (Klor-Con) 20 meq PO DAILY [facility] Stop: 12/30/18 08:59 Last Admin: 11/01/18 09:49 Dose: 20 meq Sodium Phosphate (Fleet Enema) 135 ml RC Q48HR PRN PRN Reason: Constipation Stop: 12/29/18 19:31 General: alert, demented HEENT: NC/AT, PERRLA Neck: Supple Lungs: CTAB Cardiovascular: RRR, Normal S1, Normal S2, without murmur Abdomen: soft, non-distended, positive bowel sound Extremities: excoriation Neurological: alert, muscle weakness - Procedures Procedures: Procedures Procedure Code Date DRAINAGE OF PERITONEAL CAVITY, PERCUTANEOUS APPROACH [id number] 10/14/18 Internal Medicine Assmt/Plan - Assessment Assessment: UTI Acute renal failure on Chronic renal failure Dementia Protein Calorie Malnutrition HTN History of Cirrhosis of the Liver History of Ascites Recurrent Ascites - Plan Plan: continue ivabx as per ID am labs aspiration precautions continue current plan of care Nutritional Asmnt/Malnutr-PDOC - Dietary Evaluation Malnutrition Findings (Please click <Entered> for more info): Nutritional Asmnt/Malnutrition Start: 10/31/18 13: 39 Text: Status: Complete Freq: Protocol: Document 10/31/18 13:39 [email or web address] (Rec: 10/31/18 13:56 [email or web address] LEONEL) Nutritional Asmnt/Malnutrition Patient General Information Nutritional Screening High Risk Consult Diagnosis increasing renal failure, cachexia Pertinent Medical Hx/Surgical Hx HTN, PUD/GERD, arthritis, dementia, liver disease Subjective Information Consult recieved for steven score 12. Pt was seen being fed by SCIENTIFIC AIDE at time of visit. Pt only wanted coffee and was picking at her food. PO intake is 0-50%. Food preferences taken, pt agreed to try nutritional supplement. Current Diet Order/ Nutrition Support [facility] soft ground Pertinent Medications vit c, colace, lasix, heparin, neomycin, d5-0.45ns w/ KCl, sodium phosphate Pertinent Labs 10/31 Na 134, BUN 62, Cr 2.4, ca 8.5, alb 2.2 10/30 Na 132, BUN 65, cr 2.6, glucose 133 Nutritional Hx/Data Height 4 ft 10 in Height (Calculated Centimeters) 147.3 Current Weight (lbs) 72 lb Weight (Calculated Kilograms) 32.7 Weight (Calculated Grams) 90033.7 [place] Body Weight 96 Body Mass Index (BMI) 15.0 Weight Status Underweight GI Symptoms GI Symptoms None Last BM 10/30 Difficult in: None Food Allergies No Skin Integrity/Comment: wounds: left abdomen, left lateral trunk, left posterior trunk, left sacral area steven 12 Current %PO Poor (25-49%) Estimated Nutritional Goals BEE in Kcals: Using Current wt Calories/Kcals/Kg 35-40 Kcals Calculated 5413-4171 Protein: Using Current wt Protein g/k.2-1.4 monitor renal labs Protein Calculated 39-46 Fluid: ml 981-1145 (1ml/kcal) Nutritional Problem 2. Problem Problem altered nutrition related labs Etiology renal dysfunction Signs/Symptoms: BUN 62-65, Cr 2.4-2.6 1. Problem Problem inadequate energy/protein intake Etiology poor appetite and food preference Signs/Symptoms: PO intake <50% Malnutrition Alert Body Fat Depletion (Severe) Mod to Severe Depletion Muscle Mass (Severe) Mod to Severe Depletion Protein-Calorie Malnutrition Severe Is there a minimum of two criteria Yes selected? Query Text:Check all the applicable criteria. A minimum of two criteria are recommended for diagnosis of either severe or non-severe malnutrition. Malnutrition Related to Morbid Obesity Malnutrition related to morbid obesity No Intervention/Recommendation Comments 1. Continue with [facility] soft ground diet as ordered. PO intake is low and no need for protein limit at this time. Will continue monitor renal labs. 2. Add Ensure TID for extra kcal and protein 3. Add Eulogio BID for wound healing 4. Monitor PO intake, wt, labs and skin integrity 5. F/U as high risk in 2-3 days Expected Outcomes/Goals Expected Outcomes/Goals 1. PO intake to meet at least 75% of nutritional needs. 2. Wt stability, skin to remain intact, labs to approach WNL. Reviewed by Autumn Modi RD
[2018-11-01] MEDS ORDERED: Sodium Chloride 0.9% 1,000 ML IV SCH (14:40)
--- NOTE | 2018-11-01 14:58 | General Progress Note ---
Subjective - Review of Systems Service Date: 11/01/18 Subjective: alert, comfortable Objective - Results Result Diagrams: 10/31/18 06:05 10/31/18 06:05 Recent Labs: Laboratory Last Values WBC 5.6 Th/cmm (4.8-10.8) 10/31/18 06:05 Corrected WBC (auto) 5.6 Th/cmm (4.8-10.8) 10/31/18 06:05 RBC 2.97 Mil/cmm (3.80-5.20) L 10/31/18 06:05 Hgb 10.8 gm/dL (12-16) L 10/31/18 06:05 Hct 32.5 % (41.0-60) L 10/31/18 06:05 MCV 109.5 fl (81-100) H 10/31/18 06:05 MCH 36.3 pg (27.0-31.0) H 10/31/18 06:05 MCHC Differential 33.1 pg (28.0-36.0) 10/31/18 06:05 RDW 14.1 % (11.5-20.0) 10/31/18 06:05 Plt Count 117 Th/cmm (150-400) L 10/31/18 06:05 MPV 7.2 fl 10/31/18 06:05 Add Manual Diff YES 10/31/18 06:05 Neutrophils % 64.0 % (40.0-80.0) 10/31/18 06:05 Band Neutrophils % 1 % (0-10) 10/31/18 06:05 Lymphocytes % 29.0 % (20.0-50.0) 10/31/18 06:05 Monocytes % 6.0 % (2.0-10.0) 10/31/18 06:05 Eosinophils % 1.0 % (0.0-5.0) 10/31/18 06:05 Basophils % [employer] G[employer]MENT FINISHER 10/31/18 06:05 Neutrophils (Manual) 64 % (40-80) 10/31/18 06:05 Lymphocytes 29 % (20-50) 10/31/18 06:05 Monocytes 6 % (2-10) 10/31/18 06:05 Eosinophils 1 % (0-5) 10/31/18 06:05 Basophils 0 % (0-3) 10/30/18 07:35 Macrocytosis 1+ 10/30/18 07:35 Smear Path Review N 10/31/18 06:05 PT 10.7 SECONDS (9.5-11.5) 10/29/18 10:20 INR 1.03 (0.5-1.4) 10/29/18 10:20 PTT (Actin FS) 28.7 SECONDS (26.0-38.0) 10/29/18 10:20 Sodium 134 mEq/L (136-145) L 10/31/18 06:05 Potassium 4.3 mEq/L (3.5-5.1) 10/31/18 06:05 Chloride 102 mEq/L (98-107) 10/31/18 06:05 Carbon Dioxide 24.6 mEq/L (21.0-31.0) 10/31/18 06:05 Anion Gap 11.7 (7.0-16.0) 10/31/18 06:05 BUN 62 mg/dL (7-25) H 10/31/18 06:05 Creatinine 2.4 mg/dL (0.6-1.2) H 10/31/18 06:05 Est GFR ( Amer) TNP 10/31/18 06:05 Est GFR (Non-Af Amer) TNP 10/31/18 06:05 BUN/Creatinine Ratio 25.8 10/31/18 06:05 Glucose 101 mg/dL (70-105) 10/31/18 06:05 Whole Bld Lactic Acid 1.18 mmol/L (0.60-1.99) 10/30/18 07:35 Calcium 8.5 mg/dL (8.6-10.3) L 10/31/18 06:05 Magnesium 2.3 mg/dL (1.9-2.7) 10/29/18 10:20 Total Bilirubin 0.6 mg/dL (0.3-1.0) 10/31/18 06:05 AST 40 U/L (13-39) H 10/31/18 06:05 ALT 24 U/L (7-52) 10/31/18 06:05 Alkaline Phosphatase 69 U/L (34-104) 10/31/18 06:05 Ammonia 26 umol/L (16-53) 10/30/18 07:35 Troponin I 0.04 ng/mL (0.01-0.05) 10/29/18 10:20 Total Protein 5.2 gm/dL (6.0-8.3) L 10/31/18 06:05 Albumin 2.2 gm/dL (3.7-5.3) L 10/31/18 06:05 Globulin 3.0 gm/dL 10/31/18 06:05 Albumin/Globulin Ratio 0.7 (1.0-1.8) L 10/31/18 06:05 TSH 2.78 uIU/ml (0.34-5.60) 10/29/18 10:20 Urine Source [place] 10/29/18 18:00 Urine Color YELLOW 10/29/18 18:00 Urine Clarity CLOUDY (CLEAR) H 10/29/18 18:00 Urine pH 5.5 (4.6 - 8.0) 10/29/18 18:00 Ur Specific [place] <= 1.005 (1.005-1.030) 10/29/18 18:00 Urine Protein NEGATIVE mg/dL (NEGATIVE) 10/29/18 18:00 Urine Glucose (UA) NEGATIVE mg/dL (NEGATIVE) 10/29/18 18:00 Urine Ketones NEGATIVE mg/dL (NEGATIVE) 10/29/18 18:00 Urine Blood SMALL (NEGATIVE) H 10/29/18 18:00 Urine Nitrate NEGATIVE (NEGATIVE) 10/29/18 18:00 Urine Bilirubin NEGATIVE (NEGATIVE) 10/29/18 18:00 Urine Urobilinogen 0.2 E.U./dL (0.2 - 1.0) 10/29/18 18:00 Ur Leukocyte Esterase LARGE (NEGATIVE) H 10/29/18 18:00 Urine RBC 2-5 /hpf (0-5) 10/29/18 18:00 Urine WBC 50-100 /hpf (0-5) H 10/29/18 18:00 Ur Epithelial Cells FEW /lpf (FEW) 10/29/18 18:00 Urine Bacteria MANY /hpf (NONE SEEN) H 10/29/18 18:00 Hepatitis A IgM Ab Negative (Negative) 10/31/18 06:05 Hep Bs Antigen Positive (Negative) H 10/31/18 06:05 Hep B Core IgM Ab Negative (Negative) 10/31/18 06:05 Hepatitis C Antibody <0.1 s/co ratio (0.0-0.9) 10/31/18 06:05 - Physical Exam Vitals and I&O: Vital Signs Temp 96.8 F 11/01/18 12:00 Pulse 56 11/01/18 12:00 Resp 17 11/01/18 12:00 BP 139/62 11/01/18 12:00 Pulse Ox 96 11/01/18 12:00 Intake & Output 10/31/18 11/01/18 11/01/18 18:59 06:59 18:59 Intake Total 1000 50 1000 Output Total 350 Balance 1000 -300 1000 Weight (lbs) 32.659 kg Intake: Intake, IV Amount 1000 1000 D5-0.45NS w/20 mEq KCL 1, 1000 1000 000 ml @ 75 mls/hr IV . [id number] [facility] Rx#:[id number] Oral 50 Output: Urine 350 Other: # Bowel Movements 1 Weight Source Bedscale Active Medications: Current Medications Albuterol Sulfate (Albuterol 2.5mg/3ml Neb Ud) 2.5 mg HHN Q6HR PRN PRN Reason: Shortness of Breath Ascorbic Acid (Vitamin C) 500 mg PO DAILY [facility] Stop: 12/30/18 08:59 Last Admin: 11/01/18 09:49 Dose: 500 mg Bisacodyl (Dulcolax 10 Mg Supp) 10 mg RC DAILY PRN PRN Reason: Constipation Stop: 12/29/18 19:31 Docusate Sodium (Colace) 250 mg PO DAILY [facility] Stop: 12/30/18 08:59 Last Admin: 11/01/18 09:49 Dose: 250 mg Fluconazole (Diflucan) 100 mg PO DAILY [facility] Stop: 12/31/18 13:14 Heparin Sodium (Porcine) (Heparin) 5,000 units SUBQ Q12HR [facility] Stop: 12/28/18 20:59 Last Admin: 11/01/18 09:43 Dose: Not Given Cefepime HCl 1 gm/ Sodium (Chloride) 50 mls @ 100 mls/hr IV Q24HR [facility] Stop: 12/29/18 20:59 Last Admin: 10/31/18 21:42 Dose: 100 mls/hr Sodium Chloride (Nacl 0.9%) 1,000 mls @ 100 mls/hr IV .Q10H [facility] Stop: 12/31/18 14:39 Magnesium Hydroxide (Milk Of Magnesia) 30 ml PO DAILY PRN PRN Reason: Constipation Stop: 12/29/18 19:31 Miscellaneous (Vte Chemical Prophylaxis Screen/ Admission) 1 ea [facility] PRN PRN PRN Reason: PROTOCOL Stop: 12/28/18 14:13 Neomycin Sulfate (Neomycin) 500 mg PO Q6HR [facility] Stop: 12/30/18 00:00 Last Admin: 11/01/18 12:17 Dose: 500 mg Pantoprazole Sodium (Protonix) 40 mg PO QDAC [facility] Stop: 12/30/18 07:29 Last Admin: 11/01/18 06:37 Dose: 40 mg Sodium Phosphate (Fleet Enema) 135 ml RC Q48HR PRN PRN Reason: Constipation Stop: 12/29/18 19:31 General: Alert, No acute distress HEENT: Atraumatic, PERRLA, Mucous membr. 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 - Plan Plan: Lab - Result Diagrams 10/31/18 06:05 10/31/18 06:05 Current Medications Albuterol Sulfate (Albuterol 2.5mg/3ml Neb Ud) 2.5 mg HHN Q6HR PRN PRN Reason: Shortness of Breath Ascorbic Acid (Vitamin C) 500 mg PO DAILY [facility] Stop: 12/30/18 08:59 Last Admin: 11/01/18 09:49 Dose: 500 mg Bisacodyl (Dulcolax 10 Mg Supp) 10 mg RC DAILY PRN PRN Reason: Constipation Stop: 12/29/18 19:31 Docusate Sodium (Colace) 250 mg PO DAILY [facility] Stop: 12/30/18 08:59 Last Admin: 11/01/18 09:49 Dose: 250 mg Fluconazole (Diflucan) 100 mg PO DAILY [facility] Stop: 12/31/18 13:14 Heparin Sodium (Porcine) (Heparin) 5,000 units SUBQ Q12HR [facility] Stop: 12/28/18 20:59 Last Admin: 11/01/18 09:43 Dose: Not Given Cefepime HCl 1 gm/ Sodium (Chloride) 50 mls @ 100 mls/hr IV Q24HR [facility] Stop: 12/29/18 20:59 Last Admin: 10/31/18 21:42 Dose: 100 mls/hr Sodium Chloride (Nacl 0.9%) 1,000 mls @ 100 mls/hr IV .Q10H [facility] Stop: 12/31/18 14:39 Magnesium Hydroxide (Milk Of Magnesia) 30 ml PO DAILY PRN PRN Reason: Constipation Stop: 12/29/18 19:31 Miscellaneous (Vte Chemical Prophylaxis Screen/ Admission) 1 ea [facility] PRN PRN PRN Reason: PROTOCOL Stop: 12/28/18 14:13 Neomycin Sulfate (Neomycin) 500 mg PO Q6HR [facility] Stop: 12/30/18 00:00 Last Admin: 11/01/18 12:17 Dose: 500 mg Pantoprazole Sodium (Protonix) 40 mg PO QDAC [facility] Stop: 12/30/18 07:29 Last Admin: 11/01/18 06:37 Dose: 40 mg Sodium Phosphate (Fleet Enema) 135 ml RC Q48HR PRN PRN Reason: Constipation Stop: 12/29/18 19:31 Lab - Result Diagrams 10/31/18 06:05 10/31/18 06:05 Kidney fnc gradually improving continue hydration for now because of persistent hypotension start Midodrine for kidney failure, hypotension in liver cirrhosis f/u electrolytes Nutritional Asmnt/Malnutr-PDOC - Dietary Evaluation Malnutrition Findings (Please click <Entered> for more info): Nutritional Asmnt/Malnutrition Start: 10/31/18 13: 39 Text: Status: Complete Freq: Protocol: Document 10/31/18 13:39 [email or web address] (Rec: 10/31/18 13:56 [email or web address] LEONEL) Nutritional Asmnt/Malnutrition Patient General Information Nutritional Screening High Risk Consult Diagnosis increasing renal failure, cachexia Pertinent Medical Hx/Surgical Hx HTN, PUD/GERD, arthritis, dementia, liver disease Subjective Information Consult recieved for steven score 12. Pt was seen being fed by RELATIONS SPECIALIST at time of visit. Pt only wanted coffee and was picking at her food. PO intake is 0-50%. Food preferences taken, pt agreed to try nutritional supplement. Current Diet Order/ Nutrition Support [facility] soft ground Pertinent Medications vit c, colace, lasix, heparin, neomycin, d5-0.45ns w/ KCl, sodium phosphate Pertinent Labs 10/31 Na 134, BUN 62, Cr 2.4, ca 8.5, alb 2.2 10/30 Na 132, BUN 65, cr 2.6, glucose 133 Nutritional Hx/Data Height 1.47 m Height (Calculated Centimeters) 147.3 Current Weight (lbs) 32.659 kg Weight (Calculated Kilograms) 32.7 Weight (Calculated Grams) 89555.7 [place] Body Weight 96 Body Mass Index (BMI) 15.0 Weight Status Underweight GI Symptoms GI Symptoms None Last BM 10/30 Difficult in: None Food Allergies No Skin Integrity/Comment: wounds: left abdomen, left lateral trunk, left posterior trunk, left sacral area steven 12 Current %PO Poor (25-49%) Estimated Nutritional Goals BEE in Kcals: Using Current wt Calories/Kcals/Kg 35-40 Kcals Calculated 4629-0092 Protein: Using Current wt Protein g/k.2-1.4 monitor renal labs Protein Calculated 39-46 Fluid: ml 981-1145 (1ml/kcal) Nutritional Problem 2. Problem Problem altered nutrition related labs Etiology renal dysfunction Signs/Symptoms: BUN 62-65, Cr 2.4-2.6 1. Problem Problem inadequate energy/protein intake Etiology poor appetite and food preference Signs/Symptoms: PO intake <50% Malnutrition Alert Body Fat Depletion (Severe) Mod to Severe Depletion Muscle Mass (Severe) Mod to Severe Depletion Protein-Calorie Malnutrition Severe Is there a minimum of two criteria Yes selected? Query Text:Check all the applicable criteria. A minimum of two criteria are recommended for diagnosis of either severe or non-severe malnutrition. Malnutrition Related to Morbid Obesity Malnutrition related to morbid obesity No Intervention/Recommendation Comments 1. Continue with [facility] soft ground diet as ordered. PO intake is low and no need for protein limit at this time. Will continue monitor renal labs. 2. Add Ensure TID for extra kcal and protein 3. Add Eulogio BID for wound healing 4. Monitor PO intake, wt, labs and skin integrity 5. F/U as high risk in 2-3 days Expected Outcomes/Goals Expected Outcomes/Goals 1. PO intake to meet at least 75% of nutritional needs. 2. Wt stability, skin to remain intact, labs to approach WNL. Reviewed by Autumn Modi RD
[2018-11-01] MEDS: Cefepime 1 GM in Sodium Chloride 0.9% 50 ML IV SCH (22:53)
[2018-11-01] MEDS: D5-0.9%NS 1,000 ML IV SCH (22:56)
[2018-11-02] MEDS: Pantoprazole 40 mg EC Tab PO SCH (06:40)
[2018-11-02 06:41] LABS: HEMATOCRIT 31.1 % (41.0-60); HEMOGLOBIN 10.5 gm/dL (12-16); MEAN CORPUSCULAR HGB CONC 33.6 pg (28.0-36.0); MEAN PLATELET VOLUME 7.8 fl; PLATELET COUNT 112 Th/cmm (150-400); RED BLOOD COUNT 2.91 Mil/cmm (3.80-5.20); RED CELL DISTRIBUTION WIDTH 14.8 % (11.5-20.0)
[2018-11-02 06:57] LABS: ANION GAP 10.9 (7.0-16.0); BUN - UREA NITROGEN 51 mg/dL (7-25); CALCIUM SERUM 8.4 mg/dL (8.6-10.3); CHLORIDE 107 mEq/L (98-107); CREATININE - SERUM 1.9 mg/dL (0.6-1.2); GLUCOSE 101 mg/dL (70-105); POTASSIUM SERUM 4.9 mEq/L (3.5-5.1); SODIUM SERUM 134 mEq/L (136-145)
[2018-11-02 07:05] LABS: MEAN CELL VOLUME 107.1 fl (81-100)
[2018-11-02 08:05] LABS: BAND NEUTROPHILE 1 % (0-10); BASOPHIL 0 % (0-3); EOSINOPHIL 1 % (0-5); LYMPHOCYTE 35 % (20-50); MONOCYTE 7 % (2-10); NEUTROPHILS 56 % (40-80)
[2018-11-02] MEDS: Multivitamin w/ Minerals Tab PO SCH (09:20)
[2018-11-02] MEDS: D5-0.9%NS 1,000 ML IV SCH ×2 (13:11→18:40)
--- NOTE | 2018-11-02 13:44 | General Progress Note ---
Subjective - Review of Systems Service Date: 11/02/18 Subjective: alert, comfortable, poor appetite Objective - Results Result Diagrams: 11/02/18 06:16 11/02/18 06:16 Recent Labs: Laboratory Last Values WBC 5.0 Th/cmm (4.8-10.8) 11/02/18 06:16 Corrected WBC (auto) 5.6 Th/cmm (4.8-10.8) 10/31/18 06:05 RBC 2.91 Mil/cmm (3.80-5.20) L 11/02/18 06:16 Hgb 10.5 gm/dL (12-16) L 11/02/18 06:16 Hct 31.1 % (41.0-60) L 11/02/18 06:16 MCV 107.1 fl (81-100) H 11/02/18 06:16 MCH 36.0 pg (27.0-31.0) H 11/02/18 06:16 MCHC Differential 33.6 pg (28.0-36.0) 11/02/18 06:16 RDW 14.8 % (11.5-20.0) 11/02/18 06:16 Plt Count 112 Th/cmm (150-400) L 11/02/18 06:16 MPV 7.8 fl 11/02/18 06:16 Add Manual Diff YES 11/02/18 06:16 Neutrophils % 64.0 % (40.0-80.0) 10/31/18 06:05 Band Neutrophils % 1 % (0-10) 11/02/18 06:16 Lymphocytes % 29.0 % (20.0-50.0) 10/31/18 06:05 Monocytes % 6.0 % (2.0-10.0) 10/31/18 06:05 Eosinophils % 1.0 % (0.0-5.0) 10/31/18 06:05 Basophils % BUSINESS EXCELLENCE LEADER 10/31/18 06:05 Neutrophils (Manual) 56 % (40-80) 11/02/18 06:16 Lymphocytes 35 % (20-50) 11/02/18 06:16 Monocytes 7 % (2-10) 11/02/18 06:16 Eosinophils 1 % (0-5) 11/02/18 06:16 Basophils 0 % (0-3) 11/02/18 06:16 Macrocytosis 1+ 10/30/18 07:35 Smear Path Review N 10/31/18 06:05 PT 10.7 SECONDS (9.5-11.5) 10/29/18 10:20 INR 1.03 (0.5-1.4) 10/29/18 10:20 PTT (Actin FS) 28.7 SECONDS (26.0-38.0) 10/29/18 10:20 Sodium 134 mEq/L (136-145) L 11/02/18 06:16 Potassium 4.9 mEq/L (3.5-5.1) 11/02/18 06:16 Chloride 107 mEq/L (98-107) 11/02/18 06:16 Carbon Dioxide 21.0 mEq/L (21.0-31.0) 11/02/18 06:16 Anion Gap 10.9 (7.0-16.0) 11/02/18 06:16 BUN 51 mg/dL (7-25) H 11/02/18 06:16 Creatinine 1.9 mg/dL (0.6-1.2) H 11/02/18 06:16 Est GFR ( Amer) TNP 11/02/18 06:16 Est GFR (Non-Af Amer) TNP 11/02/18 06:16 BUN/Creatinine Ratio 26.8 11/02/18 06:16 Glucose 101 mg/dL (70-105) 11/02/18 06:16 Whole Bld Lactic Acid 1.18 mmol/L (0.60-1.99) 10/30/18 07:35 Calcium 8.4 mg/dL (8.6-10.3) L 11/02/18 06:16 Magnesium 2.3 mg/dL (1.9-2.7) 10/29/18 10:20 Total Bilirubin 0.6 mg/dL (0.3-1.0) 10/31/18 06:05 AST 40 U/L (13-39) H 10/31/18 06:05 ALT 24 U/L (7-52) 10/31/18 06:05 Alkaline Phosphatase 69 U/L (34-104) 10/31/18 06:05 Ammonia 26 umol/L (16-53) 10/30/18 07:35 Troponin I 0.04 ng/mL (0.01-0.05) 10/29/18 10:20 Total Protein 5.2 gm/dL (6.0-8.3) L 10/31/18 06:05 Albumin 2.2 gm/dL (3.7-5.3) L 10/31/18 06:05 Globulin 3.0 gm/dL 10/31/18 06:05 Albumin/Globulin Ratio 0.7 (1.0-1.8) L 10/31/18 06:05 TSH 2.78 uIU/ml (0.34-5.60) 10/29/18 10:20 Urine Source NEUMANN [place] 10/29/18 18:00 Urine Color YELLOW 10/29/18 18:00 Urine Clarity CLOUDY (CLEAR) H 10/29/18 18:00 Urine pH 5.5 (4.6 - 8.0) 10/29/18 18:00 Ur Specific [place] <= 1.005 (1.005-1.030) 10/29/18 18:00 Urine Protein NEGATIVE mg/dL (NEGATIVE) 10/29/18 18:00 Urine Glucose (UA) NEGATIVE mg/dL (NEGATIVE) 10/29/18 18:00 Urine Ketones NEGATIVE mg/dL (NEGATIVE) 10/29/18 18:00 Urine Blood SMALL (NEGATIVE) H 10/29/18 18:00 Urine Nitrate NEGATIVE (NEGATIVE) 10/29/18 18:00 Urine Bilirubin NEGATIVE (NEGATIVE) 10/29/18 18:00 Urine Urobilinogen 0.2 E.U./dL (0.2 - 1.0) 10/29/18 18:00 Ur Leukocyte Esterase LARGE (NEGATIVE) H 10/29/18 18:00 Urine RBC 2-5 /hpf (0-5) 10/29/18 18:00 Urine WBC 50-100 /hpf (0-5) H 10/29/18 18:00 Ur Epithelial Cells FEW /lpf (FEW) 10/29/18 18:00 Urine Bacteria MANY /hpf (NONE SEEN) H 10/29/18 18:00 Hepatitis A IgM Ab Negative (Negative) 10/31/18 06:05 Hep Bs Antigen Positive (Negative) H 10/31/18 06:05 Hep B Core IgM Ab Negative (Negative) 10/31/18 06:05 Hepatitis C Antibody <0.1 s/co ratio (0.0-0.9) 10/31/18 06:05 - Physical Exam Vitals and I&O: Vital Signs Temp 98.0 F 11/02/18 11:41 Pulse 62 11/02/18 11:41 Resp 18 11/02/18 11:41 BP 98/48 11/02/18 11:41 Pulse Ox 98 11/02/18 11:41 Intake & Output 11/01/18 11/02/18 11/02/18 18:59 06:59 18:59 Intake Total 1000 50 1000 Output Total 350 Balance 1000 -300 1000 Weight (lbs) 33.112 kg Intake: Intake, IV Amount 1000 1000 D5-0.45NS w/20 mEq KCL 1, 1000 000 ml @ 75 mls/hr IV . [id number] [facility] Rx#:[id number] D5-0.9%Ns 1,000 ml @ 100 1000 mls/hr IV .Q10H [facility] Rx#: [id number] Oral 50 Output: Urine 350 Other: # Bowel Movements 0 Weight Source Bedscale Active Medications: Current Medications Albuterol Sulfate (Albuterol 2.5mg/3ml Neb Ud) 2.5 mg HHN Q6HR PRN PRN Reason: Shortness of Breath Ascorbic Acid (Vitamin C) 500 mg PO DAILY [facility] Stop: 12/30/18 08:59 Last Admin: 11/02/18 09:20 Dose: 500 mg Bisacodyl (Dulcolax 10 Mg Supp) 10 mg RC DAILY PRN PRN Reason: Constipation Stop: 12/29/18 19:31 Docusate Sodium (Colace) 250 mg PO DAILY [facility] [place] Stop: 12/30/18 08:59 Last Admin: 11/02/18 09:20 Dose: 250 mg Fluconazole (Diflucan) 100 mg PO DAILY [facility] Stop: 12/31/18 13:14 Last Admin: 11/02/18 09:21 Dose: 100 mg Heparin Sodium (Porcine) (Heparin) 5,000 units SUBQ Q12HR [facility] Stop: 12/28/18 20:59 Last Admin: 11/02/18 09:21 Dose: Not Given Cefepime HCl 1 gm/ Sodium (Chloride) 50 mls @ 100 mls/hr IV Q24HR [facility] Stop: 12/29/18 20:59 Last Admin: 11/01/18 22:53 Dose: 100 mls/hr Dextrose/Sodium Chloride (D5-0.9%Ns) 1,000 mls @ 100 mls/hr IV .Q10H [facility] Stop: 12/31/18 19:59 Last Admin: 11/02/18 13:11 Dose: 100 mls/hr Magnesium Hydroxide (Milk Of Magnesia) 30 ml PO DAILY PRN PRN Reason: Constipation Stop: 12/29/18 19:31 Midodrine (Proamatine) 5 mg PO BID [facility] Stop: 12/31/18 16:59 Last Admin: 11/02/18 09:20 Dose: 5 mg Miscellaneous (Vte Chemical Prophylaxis Screen/ Admission) 1 ea [facility] PRN PRN PRN Reason: PROTOCOL Stop: 12/28/18 14:13 Neomycin Sulfate (Neomycin) 500 mg PO Q6HR [facility] Stop: 12/30/18 00:00 Last Admin: 11/02/18 13:10 Dose: 500 mg Pantoprazole Sodium (Protonix) 40 mg PO QDAC [facility] Stop: 12/30/18 07:29 Last Admin: 11/02/18 06:40 Dose: 40 mg Sodium Phosphate (Fleet Enema) 135 ml RC Q48HR PRN PRN Reason: Constipation Stop: 12/29/18 19:31 General: Alert, No acute distress HEENT: Atraumatic, PERRLA, Mucous membr. 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 Lower ext lesions - Plan Plan: Lab - Result Diagrams 10/31/18 06:05 10/31/18 06:05 Current Medications Albuterol Sulfate (Albuterol 2.5mg/3ml Neb Ud) 2.5 mg HHN Q6HR PRN PRN Reason: Shortness of Breath Ascorbic Acid (Vitamin C) 500 mg PO DAILY [facility] Stop: 12/30/18 08:59 Last Admin: 11/01/18 09:49 Dose: 500 mg Bisacodyl (Dulcolax 10 Mg Supp) 10 mg RC DAILY PRN PRN Reason: Constipation Stop: 12/29/18 19:31 Docusate Sodium (Colace) 250 mg PO DAILY [facility] Stop: 12/30/18 08:59 Last Admin: 11/01/18 09:49 Dose: 250 mg Fluconazole (Diflucan) 100 mg PO DAILY [facility] Stop: 12/31/18 13:14 Heparin Sodium (Porcine) (Heparin) 5,000 units SUBQ Q12HR [facility] Stop: 12/28/18 20:59 Last Admin: 11/01/18 09:43 Dose: Not Given Cefepime HCl 1 gm/ Sodium (Chloride) 50 mls @ 100 mls/hr IV Q24HR [facility] Stop: 12/29/18 20:59 Last Admin: 10/31/18 21:42 Dose: 100 mls/hr Sodium Chloride (Nacl 0.9%) 1,000 mls @ 100 mls/hr IV .Q10H [facility] Stop: 12/31/18 14:39 Magnesium Hydroxide (Milk Of Magnesia) 30 ml PO DAILY PRN PRN Reason: Constipation Stop: 12/29/18 19:31 Miscellaneous (Vte Chemical Prophylaxis Screen/ Admission) 1 ea [facility] PRN PRN PRN Reason: PROTOCOL Stop: 12/28/18 14:13 Neomycin Sulfate (Neomycin) 500 mg PO Q6HR [facility] Stop: 12/30/18 00:00 Last Admin: 11/01/18 12:17 Dose: 500 mg Pantoprazole Sodium (Protonix) 40 mg PO QDAC [facility] Stop: 12/30/18 07:29 Last Admin: 11/01/18 06:37 Dose: 40 mg Sodium Phosphate (Fleet Enema) 135 ml RC Q48HR PRN PRN Reason: Constipation Stop: 12/29/18 19:31 Lab - Result Diagrams 11/02/18 06:16 11/02/18 06:16 Kidney fnc continues to improve continue hydration for now because of persistent hypotension start Midodrine for kidney failure, hypotension in liver cirrhosis f/u electrolytes discused w/ son @ bedside Nutritional Asmnt/Malnutr-PDOC - Dietary Evaluation Malnutrition Findings (Please click <Entered> for more info): Nutritional Asmnt/Malnutrition Start: 10/31/18 13: 39 Text: Status: Complete Freq: Protocol: Document 10/31/18 13:39 [email or web address] (Rec: 10/31/18 13:56 [email or web address]) Nutritional Asmnt/Malnutrition Patient General Information Nutritional Screening High Risk Consult Diagnosis increasing renal failure, cachexia Pertinent Medical Hx/Surgical Hx HTN, PUD/GERD, arthritis, dementia, liver disease Subjective Information Consult recieved for steven score 12. Pt was seen being fed by NAIL MAKING MACHINE SETTER at time of visit. Pt only wanted coffee and was picking at her food. PO intake is 0-50%. Food preferences taken, pt agreed to try nutritional supplement. Current Diet Order/ Nutrition Support [facility] Pertinent Medications vit c, colace, lasix, heparin, neomycin, d5-0.45ns w/ KCl, sodium phosphate Pertinent Labs 10/31 Na 134, BUN 62, Cr 2.4, ca 8.5, alb 2.2 10/30 Na 132, BUN 65, cr 2.6, glucose 133 Nutritional Hx/Data Height 1.47 m Height (Calculated Centimeters) 147.3 Current Weight (lbs) 32.659 kg Weight (Calculated Kilograms) 32.7 Weight (Calculated Grams) 74304.7 [place] Body Weight 96 Body Mass Index (BMI) 15.0 Weight Status Underweight GI Symptoms GI Symptoms None Last BM 10/30 Difficult in: None Food Allergies No Skin Integrity/Comment: wounds: left abdomen, left lateral trunk, left posterior trunk, left sacral area steven 12 Current %PO Poor (25-49%) Estimated Nutritional Goals BEE in Kcals: Using Current wt Calories/Kcals/Kg 35-40 Kcals Calculated 2554-2336 Protein: Using Current wt Protein g/k.2-1.4 monitor renal labs Protein Calculated 39-46 Fluid: ml 981-1145 (1ml/kcal) Nutritional Problem 2. Problem Problem altered nutrition related labs Etiology renal dysfunction Signs/Symptoms: BUN 62-65, Cr 2.4-2.6 1. Problem Problem inadequate energy/protein intake Etiology poor appetite and food preference Signs/Symptoms: PO intake <50% Malnutrition Alert Body Fat Depletion (Severe) Mod to Severe Depletion Muscle Mass (Severe) Mod to Severe Depletion Protein-Calorie Malnutrition Severe Is there a minimum of two criteria Yes selected? Query Text:Check all the applicable criteria. A minimum of two criteria are recommended for diagnosis of either severe or non-severe malnutrition. Malnutrition Related to Morbid Obesity Malnutrition related to morbid obesity No Intervention/Recommendation Comments 1. Continue with [facility] soft [facility] diet as ordered. PO intake is low and no need for protein limit at this time. Will continue monitor renal labs. 2. Add Ensure TID for extra kcal and protein 3. Add Eulogio BID for wound healing 4. Monitor PO intake, wt, labs and skin integrity 5. F/U as high risk in 2-3 days Expected Outcomes/Goals Expected Outcomes/Goals 1. PO intake to meet at least 75% of nutritional needs. 2. Wt stability, skin to remain intact, labs to approach WNL. Reviewed by Autumn Modi RD
--- NOTE | 2018-11-02 14:01 | Infectious Disease Prog Note ---
Infectious Disease Subjective - Review of Systems Service Date: 11/02/18 Subjective: no change, no fever. Infectious Disease Objective - Results Result Diagrams: 11/02/18 06:16 11/02/18 06:16 Recent Labs: Laboratory Last Values WBC 5.0 Th/cmm (4.8-10.8) 11/02/18 06:16 Corrected WBC (auto) 5.6 Th/cmm (4.8-10.8) 10/31/18 06:05 RBC 2.91 Mil/cmm (3.80-5.20) L 11/02/18 06:16 Hgb 10.5 gm/dL (12-16) L 11/02/18 06:16 Hct 31.1 % (41.0-60) L 11/02/18 06:16 MCV 107.1 fl (81-100) H 11/02/18 06:16 MCH 36.0 pg (27.0-31.0) H 11/02/18 06:16 MCHC Differential 33.6 pg (28.0-36.0) 11/02/18 06:16 RDW 14.8 % (11.5-20.0) 11/02/18 06:16 Plt Count 112 Th/cmm (150-400) L 11/02/18 06:16 MPV 7.8 fl 11/02/18 06:16 Add Manual Diff YES 11/02/18 06:16 Neutrophils % 64.0 % (40.0-80.0) 10/31/18 06:05 Band Neutrophils % 1 % (0-10) 11/02/18 06:16 Lymphocytes % 29.0 % (20.0-50.0) 10/31/18 06:05 Monocytes % 6.0 % (2.0-10.0) 10/31/18 06:05 Eosinophils % 1.0 % (0.0-5.0) 10/31/18 06:05 Basophils % HOTEL DIRECTOR 10/31/18 06:05 Neutrophils (Manual) 56 % (40-80) 11/02/18 06:16 Lymphocytes 35 % (20-50) 11/02/18 06:16 Monocytes 7 % (2-10) 11/02/18 06:16 Eosinophils 1 % (0-5) 11/02/18 06:16 Basophils 0 % (0-3) 11/02/18 06:16 Macrocytosis 1+ 10/30/18 07:35 Smear Path Review N 10/31/18 06:05 PT 10.7 SECONDS (9.5-11.5) 10/29/18 10:20 INR 1.03 (0.5-1.4) 10/29/18 10:20 PTT (Actin FS) 28.7 SECONDS (26.0-38.0) 10/29/18 10:20 Sodium 134 mEq/L (136-145) L 11/02/18 06:16 Potassium 4.9 mEq/L (3.5-5.1) 11/02/18 06:16 Chloride 107 mEq/L (98-107) 11/02/18 06:16 Carbon Dioxide 21.0 mEq/L (21.0-31.0) 11/02/18 06:16 Anion Gap 10.9 (7.0-16.0) 11/02/18 06:16 BUN 51 mg/dL (7-25) H 11/02/18 06:16 Creatinine 1.9 mg/dL (0.6-1.2) H 11/02/18 06:16 Est GFR ( Amer) TNP 11/02/18 06:16 Est GFR (Non-Af Amer) TNP 11/02/18 06:16 BUN/Creatinine Ratio 26.8 11/02/18 06:16 Glucose 101 mg/dL (70-105) 11/02/18 06:16 Whole Bld Lactic Acid 1.18 mmol/L (0.60-1.99) 10/30/18 07:35 Calcium 8.4 mg/dL (8.6-10.3) L 11/02/18 06:16 Magnesium 2.3 mg/dL (1.9-2.7) 10/29/18 10:20 Total Bilirubin 0.6 mg/dL (0.3-1.0) 10/31/18 06:05 AST 40 U/L (13-39) H 10/31/18 06:05 ALT 24 U/L (7-52) 10/31/18 06:05 Alkaline Phosphatase 69 U/L (34-104) 10/31/18 06:05 Ammonia 26 umol/L (16-53) 10/30/18 07:35 Troponin I 0.04 ng/mL (0.01-0.05) 10/29/18 10:20 Total Protein 5.2 gm/dL (6.0-8.3) L 10/31/18 06:05 Albumin 2.2 gm/dL (3.7-5.3) L 10/31/18 06:05 Globulin 3.0 gm/dL 10/31/18 06:05 Albumin/Globulin Ratio 0.7 (1.0-1.8) L 10/31/18 06:05 TSH 2.78 uIU/ml (0.34-5.60) 10/29/18 10:20 Urine Source [place]UM[place] 10/29/18 18:00 Urine Color YELLOW 10/29/18 18:00 Urine Clarity CLOUDY (CLEAR) H 10/29/18 18:00 Urine pH 5.5 (4.6 - 8.0) 10/29/18 18:00 Ur Specific [place] <= 1.005 (1.005-1.030) 10/29/18 18:00 Urine Protein NEGATIVE mg/dL (NEGATIVE) 10/29/18 18:00 Urine Glucose (UA) NEGATIVE mg/dL (NEGATIVE) 10/29/18 18:00 Urine Ketones NEGATIVE mg/dL (NEGATIVE) 10/29/18 18:00 Urine Blood SMALL (NEGATIVE) H 10/29/18 18:00 Urine Nitrate NEGATIVE (NEGATIVE) 10/29/18 18:00 Urine Bilirubin NEGATIVE (NEGATIVE) 10/29/18 18:00 Urine Urobilinogen 0.2 E.U./dL (0.2 - 1.0) 10/29/18 18:00 Ur Leukocyte Esterase LARGE (NEGATIVE) H 10/29/18 18:00 Urine RBC 2-5 /hpf (0-5) 10/29/18 18:00 Urine WBC 50-100 /hpf (0-5) H 10/29/18 18:00 Ur Epithelial Cells FEW /lpf (FEW) 10/29/18 18:00 Urine Bacteria MANY /hpf (NONE SEEN) H 10/29/18 18:00 Hepatitis A IgM Ab Negative (Negative) 10/31/18 06:05 Hep Bs Antigen Positive (Negative) H 10/31/18 06:05 Hep B Core IgM Ab Negative (Negative) 10/31/18 06:05 Hepatitis C Antibody <0.1 s/co ratio (0.0-0.9) 10/31/18 06:05 - Physical Exam Vitals and I&O: Vital Signs Temp 98.0 F 11/02/18 11:41 Pulse 62 11/02/18 11:41 Resp 18 11/02/18 11:41 BP 98/48 11/02/18 11:41 Pulse Ox 98 11/02/18 11:41 Intake & Output 11/01/18 11/02/18 11/02/18 18:59 06:59 18:59 Intake Total 1000 50 1000 Output Total 350 Balance 1000 -300 1000 Weight (lbs) 33.112 kg Intake: Intake, IV Amount 1000 1000 D5-0.45NS w/20 mEq KCL 1, 1000 000 ml @ 75 mls/hr IV . [id number] [facility] Rx#:[id number] D5-0.9%Ns 1,000 ml @ 100 1000 mls/hr IV .Q10H [facility] Rx#: [id number] Oral 50 Output: Urine 350 Other: # Bowel Movements 0 Weight Source Bedscale Active Medications: Current Medications Albuterol Sulfate (Albuterol 2.5mg/3ml Neb Ud) 2.5 mg HHN Q6HR PRN PRN Reason: Shortness of Breath Ascorbic Acid (Vitamin C) 500 mg PO DAILY [facility] Stop: 12/30/18 08:59 Last Admin: 11/02/18 09:20 Dose: 500 mg Bisacodyl (Dulcolax 10 Mg Supp) 10 mg RC DAILY PRN PRN Reason: Constipation Stop: 12/29/18 19:31 Docusate Sodium (Colace) 250 mg PO DAILY [facility] Stop: 12/30/18 08:59 Last Admin: 11/02/18 09:20 Dose: 250 mg Fluconazole (Diflucan) 100 mg PO DAILY [facility] Stop: 12/31/18 13:14 Last Admin: 11/02/18 09:21 Dose: 100 mg Heparin Sodium (Porcine) (Heparin) 5,000 units SUBQ Q12HR [facility] Stop: 12/28/18 20:59 Last Admin: 11/02/18 09:21 Dose: Not Given Cefepime HCl 1 gm/ Sodium (Chloride) 50 mls @ 100 mls/hr IV Q24HR [facility] Stop: 12/29/18 20:59 Last Admin: 11/01/18 22:53 Dose: 100 mls/hr Dextrose/Sodium Chloride (D5-0.9%Ns) 1,000 mls @ 100 mls/hr IV .Q10H [facility] Stop: 12/31/18 19:59 Last Admin: 11/02/18 13:11 Dose: 100 mls/hr Magnesium Hydroxide (Milk Of Magnesia) 30 ml PO DAILY PRN PRN Reason: Constipation Stop: 12/29/18 19:31 Midodrine (Proamatine) 5 mg PO BID [facility] Stop: 12/31/18 16:59 Last Admin: 11/02/18 09:20 Dose: 5 mg Miscellaneous (Vte Chemical Prophylaxis Screen/ Admission) 1 ea [facility] PRN PRN PRN Reason: PROTOCOL Stop: 12/28/18 14:13 Neomycin Sulfate (Neomycin) 500 mg PO Q6HR [facility] Stop: 12/30/18 00:00 Last Admin: 11/02/18 13:10 Dose: 500 mg Pantoprazole Sodium (Protonix) 40 mg PO QDAC [facility] Stop: 12/30/18 07:29 Last Admin: 11/02/18 06:40 Dose: 40 mg Sodium Phosphate (Fleet Enema) 135 ml RC Q48HR PRN PRN Reason: Constipation Stop: 12/29/18 19:31 General: no acute distress, cachectic HEENT: atraumatic, normocephalic, PERRLA, EOMI Neck: supple, no thyromegaly Cardiovascular: S1S2, regular Lungs: clear to auscultation bilaterally, clear to percussion Abdomen: soft, no tender, no distended, no rebound Extremities: no cyanosis, no clubbing, no edema Neurological: awake, alert, oriented Skin: intact - Procedures Procedures: Procedures Procedure Code Date DRAINAGE OF PERITONEAL CAVITY, PERCUTANEOUS APPROACH [id number] 10/14/18 Infectious Disease Assmt/Plan - Assessment Assessment: 1. UTI. - candiduria 2. Acute renal failure on chronic renal failure. 3. Dementia. 4. Protein calorie malnutrition. 5. HTN. - Plan Plan: Continue the same treatment. F/u renal us. cont diflucan po. Nutritional Asmnt/Malnutr-PDOC - Dietary Evaluation Malnutrition Findings (Please click <Entered> for more info): Nutritional Asmnt/Malnutrition Start: 10/31/18 13: 39 Text: Status: Complete Freq: Protocol: Document 10/31/18 13:39 [email or web address] (Rec: 10/31/18 13:56 [email or web address]) Nutritional Asmnt/Malnutrition Patient General Information Nutritional Screening High Risk Consult Diagnosis increasing renal failure, cachexia Pertinent Medical Hx/Surgical Hx HTN, PUD/GERD, arthritis, dementia, liver disease Subjective Information Consult recieved for steven score 12. Pt was seen being fed by CHEMICAL INSPECTOR at time of visit. Pt only wanted coffee and was picking at her food. PO intake is 0-50%. Food preferences taken, pt agreed to try nutritional supplement. Current Diet Order/ Nutrition Support [facility] Pertinent Medications vit c, colace, lasix, heparin, neomycin, d5-0.45ns w/ KCl, sodium phosphate Pertinent Labs 10/31 Na 134, BUN 62, Cr 2.4, ca 8.5, alb 2.2 10/30 Na 132, BUN 65, cr 2.6, glucose 133 Nutritional Hx/Data Height 1.47 m Height (Calculated Centimeters) 147.3 Current Weight (lbs) 32.659 kg Weight (Calculated Kilograms) 32.7 Weight (Calculated Grams) 94853.7 [place] Body Weight 96 Body Mass Index (BMI) 15.0 Weight Status Underweight GI Symptoms GI Symptoms None Last BM 10/30 Difficult in: None Food Allergies No Skin Integrity/Comment: wounds: left abdomen, left lateral trunk, left posterior trunk, left sacral area steven 12 Current %PO Poor (25-49%) Estimated Nutritional Goals BEE in Kcals: Using Current wt Calories/Kcals/Kg 35-40 Kcals Calculated 5435-0363 Protein: Using Current wt Protein g/k.2-1.4 monitor renal labs Protein Calculated 39-46 Fluid: ml 981-1145 (1ml/kcal) Nutritional Problem 2. Problem Problem altered nutrition related labs Etiology renal dysfunction Signs/Symptoms: BUN 62-65, Cr 2.4-2.6 1. Problem Problem inadequate energy/protein intake Etiology poor appetite and food preference Signs/Symptoms: PO intake <50% Malnutrition Alert Body Fat Depletion (Severe) Mod to Severe Depletion Muscle Mass (Severe) Mod to Severe Depletion Protein-Calorie Malnutrition Severe Is there a minimum of two criteria Yes selected? Query Text:Check all the applicable criteria. A minimum of two criteria are recommended for diagnosis of either severe or non-severe malnutrition. Malnutrition Related to Morbid Obesity Malnutrition related to morbid obesity No Intervention/Recommendation Comments 1. Continue with [facility] soft [facility] diet as ordered. PO intake is low and no need for protein limit at this time. Will continue monitor renal labs. 2. Add Ensure TID for extra kcal and protein 3. Add Eulogio BID for wound healing 4. Monitor PO intake, wt, labs and skin integrity 5. F/U as high risk in 2-3 days Expected Outcomes/Goals Expected Outcomes/Goals 1. PO intake to meet at least 75% of nutritional needs. 2. Wt stability, skin to remain intact, labs to approach WNL. Reviewed by Autumn Modi RD
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
--- NOTE | 2018-11-02 20:26 | Internal Medicine Prog Note ---
Internal Medicine Subjective - Subjective Service Date: 11/02/18 Patient is:: awake, verbal (t) Per staff patient has:: tolerating meds Internal Medicine Objective - Results Result Diagrams: 11/02/18 06:16 11/02/18 06:16 Recent Labs: Laboratory Last Values WBC 5.0 Th/cmm (4.8-10.8) 11/02/18 06:16 Corrected WBC (auto) 5.6 Th/cmm (4.8-10.8) 10/31/18 06:05 RBC 2.91 Mil/cmm (3.80-5.20) L 11/02/18 06:16 Hgb 10.5 gm/dL (12-16) L 11/02/18 06:16 Hct 31.1 % (41.0-60) L 11/02/18 06:16 MCV 107.1 fl (81-100) H 11/02/18 06:16 MCH 36.0 pg (27.0-31.0) H 11/02/18 06:16 MCHC Differential 33.6 pg (28.0-36.0) 11/02/18 06:16 RDW 14.8 % (11.5-20.0) 11/02/18 06:16 Plt Count 112 Th/cmm (150-400) L 11/02/18 06:16 MPV 7.8 fl 11/02/18 06:16 Add Manual Diff YES 11/02/18 06:16 Neutrophils % 64.0 % (40.0-80.0) 10/31/18 06:05 Band Neutrophils % 1 % (0-10) 11/02/18 06:16 Lymphocytes % 29.0 % (20.0-50.0) 10/31/18 06:05 Monocytes % 6.0 % (2.0-10.0) 10/31/18 06:05 Eosinophils % 1.0 % (0.0-5.0) 10/31/18 06:05 Basophils % [employer]IVER LICENSE REVIEWING OFFICER 10/31/18 06:05 Neutrophils (Manual) 56 % (40-80) 11/02/18 06:16 Lymphocytes 35 % (20-50) 11/02/18 06:16 Monocytes 7 % (2-10) 11/02/18 06:16 Eosinophils 1 % (0-5) 11/02/18 06:16 Basophils 0 % (0-3) 11/02/18 06:16 Macrocytosis 1+ 10/30/18 07:35 Smear Path Review N 10/31/18 06:05 PT 10.7 SECONDS (9.5-11.5) 10/29/18 10:20 INR 1.03 (0.5-1.4) 10/29/18 10:20 PTT (Actin FS) 28.7 SECONDS (26.0-38.0) 10/29/18 10:20 Sodium 134 mEq/L (136-145) L 11/02/18 06:16 Potassium 4.9 mEq/L (3.5-5.1) 11/02/18 06:16 Chloride 107 mEq/L (98-107) 11/02/18 06:16 Carbon Dioxide 21.0 mEq/L (21.0-31.0) 11/02/18 06:16 Anion Gap 10.9 (7.0-16.0) 11/02/18 06:16 BUN 51 mg/dL (7-25) H 11/02/18 06:16 Creatinine 1.9 mg/dL (0.6-1.2) H 11/02/18 06:16 Est GFR ( Amer) TNP 11/02/18 06:16 Est GFR (Non-Af Amer) TNP 11/02/18 06:16 BUN/Creatinine Ratio 26.8 11/02/18 06:16 Glucose 101 mg/dL (70-105) 11/02/18 06:16 Whole Bld Lactic Acid 1.18 mmol/L (0.60-1.99) 10/30/18 07:35 Calcium 8.4 mg/dL (8.6-10.3) L 11/02/18 06:16 Magnesium 2.3 mg/dL (1.9-2.7) 10/29/18 10:20 Total Bilirubin 0.6 mg/dL (0.3-1.0) 10/31/18 06:05 AST 40 U/L (13-39) H 10/31/18 06:05 ALT 24 U/L (7-52) 10/31/18 06:05 Alkaline Phosphatase 69 U/L (34-104) 10/31/18 06:05 Ammonia 26 umol/L (16-53) 10/30/18 07:35 Troponin I 0.04 ng/mL (0.01-0.05) 10/29/18 10:20 Total Protein 5.2 gm/dL (6.0-8.3) L 10/31/18 06:05 Albumin 2.2 gm/dL (3.7-5.3) L 10/31/18 06:05 Globulin 3.0 gm/dL 10/31/18 06:05 Albumin/Globulin Ratio 0.7 (1.0-1.8) L 10/31/18 06:05 TSH 2.78 uIU/ml (0.34-5.60) 10/29/18 10:20 Urine Source NEUMANN PORT 10/29/18 18:00 Urine Color YELLOW 10/29/18 18:00 Urine Clarity CLOUDY (CLEAR) H 10/29/18 18:00 Urine pH 5.5 (4.6 - 8.0) 10/29/18 18:00 Ur Specific [place] <= 1.005 (1.005-1.030) 10/29/18 18:00 Urine Protein NEGATIVE mg/dL (NEGATIVE) 10/29/18 18:00 Urine Glucose (UA) NEGATIVE mg/dL (NEGATIVE) 10/29/18 18:00 Urine Ketones NEGATIVE mg/dL (NEGATIVE) 10/29/18 18:00 Urine Blood SMALL (NEGATIVE) H 10/29/18 18:00 Urine Nitrate NEGATIVE (NEGATIVE) 10/29/18 18:00 Urine Bilirubin NEGATIVE (NEGATIVE) 10/29/18 18:00 Urine Urobilinogen 0.2 E.U./dL (0.2 - 1.0) 10/29/18 18:00 Ur Leukocyte Esterase LARGE (NEGATIVE) H 10/29/18 18:00 Urine RBC 2-5 /hpf (0-5) 10/29/18 18:00 Urine WBC 50-100 /hpf (0-5) H 10/29/18 18:00 Ur Epithelial Cells FEW /lpf (FEW) 10/29/18 18:00 Urine Bacteria MANY /hpf (NONE SEEN) H 10/29/18 18:00 Hepatitis A IgM Ab Negative (Negative) 10/31/18 06:05 Hep Bs Antigen Positive (Negative) H 10/31/18 06:05 Hep B Core IgM Ab Negative (Negative) 10/31/18 06:05 Hepatitis C Antibody <0.1 s/co ratio (0.0-0.9) 10/31/18 06:05 - Physical Exam Vitals and I&O: Vital Signs Temp 96.9 F 11/02/18 16:00 Pulse 75 11/02/18 16:00 Resp 17 11/02/18 16:00 BP 97/65 11/02/18 16:00 Pulse Ox 98 11/02/18 16:00 Intake & Output 11/02/18 11/02/18 11/03/18 06:59 18:59 06:59 Intake Total 50 2048.333 Output Total 350 300 Balance -300 1748.333 Weight (lbs) 73 lb 78 lb 9.6 oz Intake: Intake, IV Amount 1548.333 D5-0.9%Ns 1,000 ml @ 100 1548.333 mls/hr IV .Q10H [facility] Rx#: [id number] Oral 50 500 Output: Urine 350 300 Other: # Bowel Movements 0 3 Weight Source Bedscale Bedscale Active Medications: Current Medications Albuterol Sulfate (Albuterol 2.5mg/3ml Neb Ud) 2.5 mg HHN Q6HR PRN PRN Reason: Shortness of Breath Ascorbic Acid (Vitamin C) 500 mg PO DAILY [facility] Stop: 12/30/18 08:59 Last Admin: 11/02/18 09:20 Dose: 500 mg Bisacodyl (Dulcolax 10 Mg Supp) 10 mg RC DAILY PRN PRN Reason: Constipation Stop: 12/29/18 19:31 Docusate Sodium (Colace) 250 mg PO DAILY [facility] Stop: 12/30/18 08:59 Last Admin: 11/02/18 09:20 Dose: 250 mg Fluconazole (Diflucan) 100 mg PO DAILY [facility] Stop: 12/31/18 13:14 Last Admin: 11/02/18 09:21 Dose: 100 mg Heparin Sodium (Porcine) (Heparin) 5,000 units SUBQ Q12HR [facility] Stop: 12/28/18 20:59 Last Admin: 11/02/18 09:21 Dose: Not Given Cefepime HCl 1 gm/ Sodium (Chloride) 50 mls @ 100 mls/hr IV Q24HR [facility] Stop: 12/29/18 20:59 Last Admin: 11/01/18 22:53 Dose: 100 mls/hr Dextrose/Sodium Chloride (D5-0.9%Ns) 1,000 mls @ 100 mls/hr IV .Q10H [facility] Stop: 12/31/18 19:59 Last Admin: 11/02/18 18:40 Dose: 100 mls/hr Magnesium Hydroxide (Milk Of Magnesia) 30 ml PO DAILY PRN PRN Reason: Constipation Stop: 12/29/18 19:31 Midodrine (Proamatine) 5 mg PO BID [facility] Stop: 12/31/18 16:59 Last Admin: 11/02/18 18:35 Dose: 5 mg Miscellaneous (Vte Chemical Prophylaxis Screen/ Admission) 1 ea [facility] PRN PRN PRN Reason: PROTOCOL Stop: 12/28/18 14:13 Neomycin Sulfate (Neomycin) 500 mg PO Q6HR [facility] Stop: 12/30/18 00:00 Last Admin: 11/02/18 18:36 Dose: 500 mg Pantoprazole Sodium (Protonix) 40 mg PO QDAC [facility] Stop: 12/30/18 07:29 Last Admin: 11/02/18 06:40 Dose: 40 mg Sodium Phosphate (Fleet Enema) 135 ml RC Q48HR PRN PRN Reason: Constipation Stop: 12/29/18 19:31 General: alert, demented HEENT: NC/AT, PERRLA Neck: Supple Lungs: CTAB Cardiovascular: RRR, Normal S1, Normal S2, without murmur Abdomen: soft, non-distended, positive bowel sound Extremities: excoriation Neurological: alert, muscle weakness - Procedures Procedures: Procedures Procedure Code Date DRAINAGE OF PERITONEAL CAVITY, PERCUTANEOUS APPROACH [id number] 10/14/18 Internal Medicine Assmt/Plan - Assessment Assessment: UTI Acute renal failure on Chronic renal failure Dementia Protein Calorie Malnutrition HTN History of Cirrhosis of the Liver History of Ascites Recurrent Ascites - Plan Plan: continue ivabx as per ID am labs aspiration precautions continue current plan of care Nutritional Asmnt/Malnutr-PDOC - Dietary Evaluation Malnutrition Findings (Please click <Entered> for more info): Nutritional Asmnt/Malnutrition Start: 10/31/18 13: 39 Text: Status: Complete Freq: Protocol: Document 10/31/18 13:39 [email or web address] (Rec: 10/31/18 13:56 [email or web address]) Nutritional Asmnt/Malnutrition Patient General Information Nutritional Screening High Risk Consult Diagnosis increasing renal failure, cachexia Pertinent Medical Hx/Surgical Hx HTN, PUD/GERD, arthritis, dementia, liver disease Subjective Information Consult recieved for steven score 12. Pt was seen being fed by CUE WORKER at time of visit. Pt only wanted coffee and was picking at her food. PO intake is 0-50%. Food preferences taken, pt agreed to try nutritional supplement. Current Diet Order/ Nutrition Support [facility] soft ground Pertinent Medications vit c, colace, lasix, heparin, neomycin, d5-0.45ns w/ KCl, sodium phosphate Pertinent Labs 10/31 Na 134, BUN 62, Cr 2.4, ca 8.5, alb 2.2 10/30 Na 132, BUN 65, cr 2.6, glucose 133 Nutritional Hx/Data Height 4 ft 10 in Height (Calculated Centimeters) 147.3 Current Weight (lbs) 72 lb Weight (Calculated Kilograms) 32.7 Weight (Calculated Grams) 53190.7 [place] Body Weight 96 Body Mass Index (BMI) 15.0 Weight Status Underweight GI Symptoms GI Symptoms None Last BM 10/30 Difficult in: None Food Allergies No Skin Integrity/Comment: wounds: left abdomen, left lateral trunk, left posterior trunk, left sacral area steven 12 Current %PO Poor (25-49%) Estimated Nutritional Goals BEE in Kcals: Using Current wt Calories/Kcals/Kg 35-40 Kcals Calculated [id number] Protein: Using Current wt Protein g/k.2-1.4 monitor renal labs Protein Calculated 39-46 Fluid: ml 981-1145 (1ml/kcal) Nutritional Problem 2. Problem Problem altered nutrition related labs Etiology renal dysfunction Signs/Symptoms: BUN 62-65, Cr 2.4-2.6 1. Problem Problem inadequate energy/protein intake Etiology poor appetite and food preference Signs/Symptoms: PO intake <50% Malnutrition Alert Body Fat Depletion (Severe) Mod to Severe Depletion Muscle Mass (Severe) Mod to Severe Depletion Protein-Calorie Malnutrition Severe Is there a minimum of two criteria Yes selected? Query Text:Check all the applicable criteria. A minimum of two criteria are recommended for diagnosis of either severe or non-severe malnutrition. Malnutrition Related to Morbid Obesity Malnutrition related to morbid obesity No Intervention/Recommendation Comments 1. Continue with [facility] soft ground diet as ordered. PO intake is low and no need for protein limit at this time. Will continue monitor renal labs. 2. Add Ensure TID for extra kcal and protein 3. Add Eulogio BID for wound healing 4. Monitor PO intake, wt, labs and skin integrity 5. F/U as high risk in 2-3 days Expected Outcomes/Goals Expected Outcomes/Goals 1. PO intake to meet at least 75% of nutritional needs. 2. Wt stability, skin to remain intact, labs to approach WNL. Reviewed by Autumn Modi RD
[2018-11-02] MEDS: Cefepime 1 GM in Sodium Chloride 0.9% 50 ML IV SCH (21:06)
[2018-11-03] MEDS: D5-0.9%NS 1,000 ML IV SCH (04:50)
[2018-11-03] MEDS: Pantoprazole 40 mg EC Tab PO SCH (06:39)
[2018-11-03 06:46] LABS: HEMATOCRIT 31.7 % (41.0-60); MEAN CORPUSCULAR HEMOGLOBIN 36.6 pg (27.0-31.0); MEAN CORPUSCULAR HGB CONC 34.7 pg (28.0-36.0); MEAN PLATELET VOLUME 7.9 fl; PLATELET COUNT 132 Th/cmm (150-400); RED BLOOD COUNT 3.01 Mil/cmm (3.80-5.20); RED CELL DISTRIBUTION WIDTH 14.8 % (11.5-20.0); WHITE BLOOD COUNT 5.1 Th/cmm (4.8-10.8)
[2018-11-03 06:56] LABS: MEAN CELL VOLUME 105.6 fl (81-100)
[2018-11-03 07:05] LABS: ANION GAP 10.4 (7.0-16.0); BUN - UREA NITROGEN 47 mg/dL (7-25); CALCIUM SERUM 7.9 mg/dL (8.6-10.3); CHLORIDE 111 mEq/L (98-107); CREATININE - SERUM 1.7 mg/dL (0.6-1.2); GLUCOSE 113 mg/dL (70-105); POTASSIUM SERUM 4.4 mEq/L (3.5-5.1); SODIUM SERUM 137 mEq/L (136-145)
[2018-11-03 08:10] LABS: LYMPHOCYTE 33 % (20-50); MONOCYTE 10 % (2-10); NEUTROPHILS 57 % (40-80)
[2018-11-03 08:11] LABS: PLATELET ESTIMATE ADEQUATE (NORMAL)
[2018-11-03] MEDS: Multivitamin w/ Minerals Tab PO SCH (10:25)
--- NOTE | 2018-11-03 13:23 | General Progress Note ---
Subjective - Review of Systems Service Date: 11/03/18 Subjective: alert, comfortable, poor appetite Objective - Results Result Diagrams: 11/03/18 05:48 11/03/18 05:48 Recent Labs: Laboratory Last Values WBC 5.1 Th/cmm (4.8-10.8) 11/03/18 05:48 Corrected WBC (auto) 5.6 Th/cmm (4.8-10.8) 10/31/18 06:05 RBC 3.01 Mil/cmm (3.80-5.20) L 11/03/18 05:48 Hgb 11.0 gm/dL (12-16) L 11/03/18 05:48 Hct 31.7 % (41.0-60) L 11/03/18 05:48 MCV 105.6 fl (81-100) H 11/03/18 05:48 MCH 36.6 pg (27.0-31.0) H 11/03/18 05:48 MCHC Differential 34.7 pg (28.0-36.0) 11/03/18 05:48 RDW 14.8 % (11.5-20.0) 11/03/18 05:48 Plt Count 132 Th/cmm (150-400) L 11/03/18 05:48 MPV 7.9 fl 11/03/18 05:48 Add Manual Diff YES 11/03/18 05:48 Neutrophils % 64.0 % (40.0-80.0) 10/31/18 06:05 Band Neutrophils % 1 % (0-10) 11/02/18 06:16 Lymphocytes % 29.0 % (20.0-50.0) 10/31/18 06:05 Monocytes % 6.0 % (2.0-10.0) 10/31/18 06:05 Eosinophils % 1.0 % (0.0-5.0) 10/31/18 06:05 Basophils % [employer]ING[employer] S[employer] TE[employer]ER 10/31/18 06:05 Neutrophils (Manual) 57 % (40-80) 11/03/18 05:48 Lymphocytes 33 % (20-50) 11/03/18 05:48 Monocytes 10 % (2-10) 11/03/18 05:48 Eosinophils 1 % (0-5) 11/02/18 06:16 Basophils 0 % (0-3) 11/02/18 06:16 Platelet Estimate ADEQUATE (NORMAL) 11/03/18 05:48 Macrocytosis 1+ 11/03/18 05:48 Smear Path Review N 10/31/18 06:05 PT 10.7 SECONDS (9.5-11.5) 10/29/18 10:20 INR 1.03 (0.5-1.4) 10/29/18 10:20 PTT (Actin FS) 28.7 SECONDS (26.0-38.0) 10/29/18 10:20 Sodium 137 mEq/L (136-145) 11/03/18 05:48 Potassium 4.4 mEq/L (3.5-5.1) 11/03/18 05:48 Chloride 111 mEq/L (98-107) H 11/03/18 05:48 Carbon Dioxide 20.0 mEq/L (21.0-31.0) L 11/03/18 05:48 Anion Gap 10.4 (7.0-16.0) 11/03/18 05:48 BUN 47 mg/dL (7-25) H 11/03/18 05:48 Creatinine 1.7 mg/dL (0.6-1.2) H 11/03/18 05:48 Est GFR ( Amer) TNP 11/03/18 05:48 Est GFR (Non-Af Amer) TNP 11/03/18 05:48 BUN/Creatinine Ratio 27.6 11/03/18 05:48 Glucose 113 mg/dL (70-105) H 11/03/18 05:48 Whole Bld Lactic Acid 1.18 mmol/L (0.60-1.99) 10/30/18 07:35 Calcium 7.9 mg/dL (8.6-10.3) L 11/03/18 05:48 Magnesium 2.3 mg/dL (1.9-2.7) 10/29/18 10:20 Total Bilirubin 0.6 mg/dL (0.3-1.0) 10/31/18 06:05 AST 40 U/L (13-39) H 10/31/18 06:05 ALT 24 U/L (7-52) 10/31/18 06:05 Alkaline Phosphatase 69 U/L (34-104) 10/31/18 06:05 Ammonia 26 umol/L (16-53) 10/30/18 07:35 Troponin I 0.04 ng/mL (0.01-0.05) 10/29/18 10:20 Total Protein 5.2 gm/dL (6.0-8.3) L 10/31/18 06:05 Albumin 2.2 gm/dL (3.7-5.3) L 10/31/18 06:05 Globulin 3.0 gm/dL 10/31/18 06:05 Albumin/Globulin Ratio 0.7 (1.0-1.8) L 10/31/18 06:05 TSH 2.78 uIU/ml (0.34-5.60) 10/29/18 10:20 Urine Source [place] 10/29/18 18:00 Urine Color YELLOW 10/29/18 18:00 Urine Clarity CLOUDY (CLEAR) H 10/29/18 18:00 Urine pH 5.5 (4.6 - 8.0) 10/29/18 18:00 Ur Specific [place] <= 1.005 (1.005-1.030) 10/29/18 18:00 Urine Protein NEGATIVE mg/dL (NEGATIVE) 10/29/18 18:00 Urine Glucose (UA) NEGATIVE mg/dL (NEGATIVE) 10/29/18 18:00 Urine Ketones NEGATIVE mg/dL (NEGATIVE) 10/29/18 18:00 Urine Blood SMALL (NEGATIVE) H 10/29/18 18:00 Urine Nitrate NEGATIVE (NEGATIVE) 10/29/18 18:00 Urine Bilirubin NEGATIVE (NEGATIVE) 10/29/18 18:00 Urine Urobilinogen 0.2 E.U./dL (0.2 - 1.0) 10/29/18 18:00 Ur Leukocyte Esterase LARGE (NEGATIVE) H 10/29/18 18:00 Urine RBC 2-5 /hpf (0-5) 10/29/18 18:00 Urine WBC 50-100 /hpf (0-5) H 10/29/18 18:00 Ur Epithelial Cells FEW /lpf (FEW) 10/29/18 18:00 Urine Bacteria MANY /hpf (NONE SEEN) H 10/29/18 18:00 Hepatitis A IgM Ab Negative (Negative) 10/31/18 06:05 Hep Bs Antigen Positive (Negative) H 10/31/18 06:05 Hep B Core IgM Ab Negative (Negative) 10/31/18 06:05 Hepatitis C Antibody <0.1 s/co ratio (0.0-0.9) 10/31/18 06:05 - Physical Exam Vitals and I&O: Vital Signs Temp 97.1 F 11/03/18 12:00 Pulse 74 11/03/18 12:00 Resp 18 11/03/18 12:00 BP 117/63 11/03/18 12:00 Pulse Ox 97 11/03/18 12:00 Intake & Output 11/02/18 11/03/18 11/03/18 18:59 06:59 18:59 Intake Total 2048.333 1000 Output Total 300 Balance 6547.305 2537 Weight (lbs) 35.652 kg Intake: Intake, IV Amount 4086.438 6204 D5-0.9%Ns 1,000 ml @ 100 2184.623 8310 mls/hr IV .Q10H [facility] Rx#: [id number] Oral 500 Output: Urine 300 Other: # Bowel Movements 3 Weight Source Bedscale Active Medications: Current Medications Albuterol Sulfate (Albuterol 2.5mg/3ml Neb Ud) 2.5 mg HHN Q6HR PRN PRN Reason: Shortness of Breath Ascorbic Acid (Vitamin C) 500 mg PO DAILY [facility] Stop: 12/30/18 08:59 Last Admin: 11/03/18 10:25 Dose: 500 mg Bisacodyl (Dulcolax 10 Mg Supp) 10 mg RC DAILY PRN PRN Reason: Constipation Stop: 12/29/18 19:31 Docusate Sodium (Colace) 250 mg PO DAILY [facility] Stop: 12/30/18 08:59 Last Admin: 11/03/18 10:26 Dose: Not Given Fluconazole (Diflucan) 100 mg PO DAILY [facility] Stop: 12/31/18 13:14 Last Admin: 11/03/18 10:26 Dose: 100 mg Heparin Sodium (Porcine) (Heparin) 5,000 units SUBQ Q12HR [facility] Stop: 12/28/18 20:59 Last Admin: 11/03/18 10:26 Dose: Not Given Cefepime HCl 1 gm/ Sodium (Chloride) 50 mls @ 100 mls/hr IV Q24HR [facility] Stop: 12/29/18 20:59 Last Admin: 11/02/18 21:06 Dose: 100 mls/hr Dextrose/Sodium Chloride (D5-0.9%Ns) 1,000 mls @ 100 mls/hr IV .Q10H [facility] Stop: 12/31/18 19:59 Last Admin: 11/03/18 04:50 Dose: 100 mls/hr Magnesium Hydroxide (Milk Of Magnesia) 30 ml PO DAILY PRN PRN Reason: Constipation Stop: 12/29/18 19:31 Midodrine (Proamatine) 5 mg PO BID [facility] Stop: 12/31/18 16:59 Last Admin: 11/03/18 10:26 Dose: 5 mg Miscellaneous (Vte Chemical Prophylaxis Screen/ Admission) 1 ea [facility] PRN PRN PRN Reason: PROTOCOL Stop: 12/28/18 14:13 Neomycin Sulfate (Neomycin) 500 mg PO Q6HR [facility] Stop: 12/30/18 00:00 Last Admin: 11/03/18 05:54 Dose: 500 mg Pantoprazole Sodium (Protonix) 40 mg PO QDAC [facility] Stop: 12/30/18 07:29 Last Admin: 11/03/18 06:39 Dose: 40 mg Sodium Phosphate (Fleet Enema) 135 ml RC Q48HR PRN PRN Reason: Constipation Stop: 12/29/18 19:31 General: Alert, No acute distress HEENT: Atraumatic, PERRLA, Mucous membr. 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 Complex Cyst Right Kidney Lower ext lesions Hep B Ag - Plan Plan: Lab - Result Diagrams 10/31/18 06:05 10/31/18 06:05 Current Medications Albuterol Sulfate (Albuterol 2.5mg/3ml Neb Ud) 2.5 mg HHN Q6HR PRN PRN Reason: Shortness of Breath Ascorbic Acid (Vitamin C) 500 mg PO DAILY [facility] Stop: 12/30/18 08:59 Last Admin: 11/01/18 09:49 Dose: 500 mg Bisacodyl (Dulcolax 10 Mg Supp) 10 mg RC DAILY PRN PRN Reason: Constipation Stop: 12/29/18 19:31 Docusate Sodium (Colace) 250 mg PO DAILY [facility] Stop: 12/30/18 08:59 Last Admin: 11/01/18 09:49 Dose: 250 mg Fluconazole (Diflucan) 100 mg PO DAILY [facility] Stop: 12/31/18 13:14 Heparin Sodium (Porcine) (Heparin) 5,000 units SUBQ Q12HR [facility] Stop: 12/28/18 20:59 Last Admin: 11/01/18 09:43 Dose: Not Given Cefepime HCl 1 gm/ Sodium (Chloride) 50 mls @ 100 mls/hr IV Q24HR [facility] Stop: 12/29/18 20:59 Last Admin: 10/31/18 21:42 Dose: 100 mls/hr Sodium Chloride (Nacl 0.9%) 1,000 mls @ 100 mls/hr IV .Q10H [facility] Stop: 12/31/18 14:39 Magnesium Hydroxide (Milk Of Magnesia) 30 ml PO DAILY PRN PRN Reason: Constipation Stop: 12/29/18 19:31 Miscellaneous (Vte Chemical Prophylaxis Screen/ Admission) 1 ea MC PRN PRN PRN Reason: PROTOCOL Stop: 12/28/18 14:13 Neomycin Sulfate (Neomycin) 500 mg PO Q6HR [facility] Stop: 12/30/18 00:00 Last Admin: 11/01/18 12:17 Dose: 500 mg Pantoprazole Sodium (Protonix) 40 mg PO QDAC [facility] Stop: 12/30/18 07:29 Last Admin: 11/01/18 06:37 Dose: 40 mg Sodium Phosphate (Fleet Enema) 135 ml RC Q48HR PRN PRN Reason: Constipation Stop: 12/29/18 19:31 Lab - Result Diagrams 11/03/18 05:48 11/03/18 05:48 Kidney fnc continues to improve continue hydration for now because of persistent hypotension start Midodrine for kidney failure, hypotension in liver cirrhosis f/u electrolytes Nutritional Asmnt/Malnutr-PDOC - Dietary Evaluation Malnutrition Findings (Please click <Entered> for more info): Nutritional Asmnt/Malnutrition Start: 10/31/18 13: 39 Text: Status: Complete Freq: Protocol: Document 10/31/18 13:39 [email or web address] (Rec: 10/31/18 13:56 [email or web address]) Nutritional Asmnt/Malnutrition Patient General Information Nutritional Screening High Risk Consult Diagnosis increasing renal failure, cachexia Pertinent Medical Hx/Surgical Hx HTN, PUD/GERD, arthritis, dementia, liver disease Subjective Information Consult recieved for steven score 12. Pt was seen being fed by DOOR TO DOOR SALESMAN at time of visit. Pt only wanted coffee and was picking at her food. PO intake is 0-50%. Food preferences taken, pt agreed to try nutritional supplement. Current Diet Order/ Nutrition Support [facility] soft ground Pertinent Medications vit c, colace, lasix, heparin, neomycin, d5-0.45ns w/ KCl, sodium phosphate Pertinent Labs 10/31 Na 134, BUN 62, Cr 2.4, ca 8.5, alb 2.2 10/30 Na 132, BUN 65, cr 2.6, glucose 133 Nutritional Hx/Data Height 1.47 m Height (Calculated Centimeters) 147.3 Current Weight (lbs) 32.659 kg Weight (Calculated Kilograms) 32.7 Weight (Calculated Grams) 84833.7 [place] Body Weight 96 Body Mass Index (BMI) 15.0 Weight Status Underweight GI Symptoms GI Symptoms None Last BM 10/30 Difficult in: None Food Allergies No Skin Integrity/Comment: wounds: left abdomen, left lateral trunk, left posterior trunk, left sacral area steven 12 Current %PO Poor (25-49%) Estimated Nutritional Goals BEE in Kcals: Using Current wt Calories/Kcals/Kg 35-40 Kcals Calculated 6940-0210 Protein: Using Current wt Protein g/k.2-1.4 monitor renal labs Protein Calculated 39-46 Fluid: ml 981-1145 (1ml/kcal) Nutritional Problem 2. Problem Problem altered nutrition related labs Etiology renal dysfunction Signs/Symptoms: BUN 62-65, Cr 2.4-2.6 1. Problem Problem inadequate energy/protein intake Etiology poor appetite and food preference Signs/Symptoms: PO intake <50% Malnutrition Alert Body Fat Depletion (Severe) Mod to Severe Depletion Muscle Mass (Severe) Mod to Severe Depletion Protein-Calorie Malnutrition Severe Is there a minimum of two criteria Yes selected? Query Text:Check all the applicable criteria. A minimum of two criteria are recommended for diagnosis of either severe or non-severe malnutrition. Malnutrition Related to Morbid Obesity Malnutrition related to morbid obesity No Intervention/Recommendation Comments 1. Continue with [facility] soft ground diet as ordered. PO intake is low and no need for protein limit at this time. Will continue monitor renal labs. 2. Add Ensure TID for extra kcal and protein 3. Add Eulogio BID for wound healing 4. Monitor PO intake, wt, labs and skin integrity 5. F/U as high risk in 2-3 days Expected Outcomes/Goals Expected Outcomes/Goals 1. PO intake to meet at least 75% of nutritional needs. 2. Wt stability, skin to remain intact, labs to approach WNL. Reviewed by Autumn Moid RD
[2018-11-03] MEDS ORDERED: D5-0.9%NS 1,000 ML IV SCH (13:30)
--- NOTE | 2018-11-03 18:42 | Internal Medicine Prog Note ---
Internal Medicine Subjective - Subjective Service Date: 11/03/18 Patient is:: awake, verbal (t) Per staff patient has:: tolerating meds Internal Medicine Objective - Results Result Diagrams: 11/03/18 05:48 11/03/18 05:48 Recent Labs: Laboratory Last Values WBC 5.1 Th/cmm (4.8-10.8) 11/03/18 05:48 Corrected WBC (auto) 5.6 Th/cmm (4.8-10.8) 10/31/18 06:05 RBC 3.01 Mil/cmm (3.80-5.20) L 11/03/18 05:48 Hgb 11.0 gm/dL (12-16) L 11/03/18 05:48 Hct 31.7 % (41.0-60) L 11/03/18 05:48 MCV 105.6 fl (81-100) H 11/03/18 05:48 MCH 36.6 pg (27.0-31.0) H 11/03/18 05:48 MCHC Differential 34.7 pg (28.0-36.0) 11/03/18 05:48 RDW 14.8 % (11.5-20.0) 11/03/18 05:48 Plt Count 132 Th/cmm (150-400) L 11/03/18 05:48 MPV 7.9 fl 11/03/18 05:48 Add Manual Diff YES 11/03/18 05:48 Neutrophils % 64.0 % (40.0-80.0) 10/31/18 06:05 Band Neutrophils % 1 % (0-10) 11/02/18 06:16 Lymphocytes % 29.0 % (20.0-50.0) 10/31/18 06:05 Monocytes % 6.0 % (2.0-10.0) 10/31/18 06:05 Eosinophils % 1.0 % (0.0-5.0) 10/31/18 06:05 Basophils % [employer]NALYTICS MANAGER 10/31/18 06:05 Neutrophils (Manual) 57 % (40-80) 11/03/18 05:48 Lymphocytes 33 % (20-50) 11/03/18 05:48 Monocytes 10 % (2-10) 11/03/18 05:48 Eosinophils 1 % (0-5) 11/02/18 06:16 Basophils 0 % (0-3) 11/02/18 06:16 Platelet Estimate ADEQUATE (NORMAL) 11/03/18 05:48 Macrocytosis 1+ 11/03/18 05:48 Smear Path Review N 10/31/18 06:05 PT 10.7 SECONDS (9.5-11.5) 10/29/18 10:20 INR 1.03 (0.5-1.4) 10/29/18 10:20 PTT (Actin FS) 28.7 SECONDS (26.0-38.0) 10/29/18 10:20 Sodium 137 mEq/L (136-145) 11/03/18 05:48 Potassium 4.4 mEq/L (3.5-5.1) 11/03/18 05:48 Chloride 111 mEq/L (98-107) H 11/03/18 05:48 Carbon Dioxide 20.0 mEq/L (21.0-31.0) L 11/03/18 05:48 Anion Gap 10.4 (7.0-16.0) 11/03/18 05:48 BUN 47 mg/dL (7-25) H 11/03/18 05:48 Creatinine 1.7 mg/dL (0.6-1.2) H 11/03/18 05:48 Est GFR ( Amer) TNP 11/03/18 05:48 Est GFR (Non-Af Amer) TNP 11/03/18 05:48 BUN/Creatinine Ratio 27.6 11/03/18 05:48 Glucose 113 mg/dL (70-105) H 11/03/18 05:48 Whole Bld Lactic Acid 1.18 mmol/L (0.60-1.99) 10/30/18 07:35 Calcium 7.9 mg/dL (8.6-10.3) L 11/03/18 05:48 Magnesium 2.3 mg/dL (1.9-2.7) 10/29/18 10:20 Total Bilirubin 0.6 mg/dL (0.3-1.0) 10/31/18 06:05 AST 40 U/L (13-39) H 10/31/18 06:05 ALT 24 U/L (7-52) 10/31/18 06:05 Alkaline Phosphatase 69 U/L (34-104) 10/31/18 06:05 Ammonia 26 umol/L (16-53) 10/30/18 07:35 Troponin I 0.04 ng/mL (0.01-0.05) 10/29/18 10:20 Total Protein 5.2 gm/dL (6.0-8.3) L 10/31/18 06:05 Albumin 2.2 gm/dL (3.7-5.3) L 10/31/18 06:05 Globulin 3.0 gm/dL 10/31/18 06:05 Albumin/Globulin Ratio 0.7 (1.0-1.8) L 10/31/18 06:05 TSH 2.78 uIU/ml (0.34-5.60) 10/29/18 10:20 Urine Source [place] 10/29/18 18:00 Urine Color YELLOW 10/29/18 18:00 Urine Clarity CLOUDY (CLEAR) H 10/29/18 18:00 Urine pH 5.5 (4.6 - 8.0) 10/29/18 18:00 Ur Specific [place] <= 1.005 (1.005-1.030) 10/29/18 18:00 Urine Protein NEGATIVE mg/dL (NEGATIVE) 10/29/18 18:00 Urine Glucose (UA) NEGATIVE mg/dL (NEGATIVE) 10/29/18 18:00 Urine Ketones NEGATIVE mg/dL (NEGATIVE) 10/29/18 18:00 Urine Blood SMALL (NEGATIVE) H 10/29/18 18:00 Urine Nitrate NEGATIVE (NEGATIVE) 10/29/18 18:00 Urine Bilirubin NEGATIVE (NEGATIVE) 10/29/18 18:00 Urine Urobilinogen 0.2 E.U./dL (0.2 - 1.0) 10/29/18 18:00 Ur Leukocyte Esterase LARGE (NEGATIVE) H 10/29/18 18:00 Urine RBC 2-5 /hpf (0-5) 10/29/18 18:00 Urine WBC 50-100 /hpf (0-5) H 10/29/18 18:00 Ur Epithelial Cells FEW /lpf (FEW) 10/29/18 18:00 Urine Bacteria MANY /hpf (NONE SEEN) H 10/29/18 18:00 Hepatitis A IgM Ab Negative (Negative) 10/31/18 06:05 Hep Bs Antigen Positive (Negative) H 10/31/18 06:05 Hep B Core IgM Ab Negative (Negative) 10/31/18 06:05 Hepatitis C Antibody <0.1 s/co ratio (0.0-0.9) 10/31/18 06:05 - Physical Exam Vitals and I&O: Vital Signs Temp 96.9 F 11/03/18 15:45 Pulse 86 11/03/18 15:45 Resp 18 11/03/18 15:45 BP 106/74 11/03/18 15:45 Pulse Ox 97 11/03/18 15:45 Intake & Output 11/02/18 11/03/18 11/03/18 18:59 06:59 18:59 Intake Total 2048.333 1000 Output Total 300 Balance 3584.339 4262 Weight (lbs) 78 lb 9.6 oz Intake: Intake, IV Amount 1561.362 5149 D5-0.9%Ns 1,000 ml @ 100 4177.326 0309 mls/hr IV .Q10H [facility] Rx#: [id number] Oral 500 Output: Urine 300 Other: # Bowel Movements 3 Weight Source Bedscale Active Medications: Current Medications Albuterol Sulfate (Albuterol 2.5mg/3ml Neb Ud) 2.5 mg HHN Q6HR PRN PRN Reason: Shortness of Breath Ascorbic Acid (Vitamin C) 500 mg PO DAILY [facility] Stop: 12/30/18 08:59 Last Admin: 11/03/18 10:25 Dose: 500 mg Bisacodyl (Dulcolax 10 Mg Supp) 10 mg RC DAILY PRN PRN Reason: Constipation Stop: 12/29/18 19:31 Docusate Sodium (Colace) 250 mg PO DAILY [facility] Stop: 12/30/18 08:59 Last Admin: 11/03/18 10:26 Dose: Not Given Fluconazole (Diflucan) 100 mg PO DAILY [facility] Stop: 12/31/18 13:14 Last Admin: 11/03/18 10:26 Dose: 100 mg Heparin Sodium (Porcine) (Heparin) 5,000 units SUBQ Q12HR [facility] Stop: 12/28/18 20:59 Last Admin: 11/03/18 10:26 Dose: Not Given Cefepime HCl 1 gm/ Sodium (Chloride) 50 mls @ 100 mls/hr IV Q24HR [facility] Stop: 12/29/18 20:59 Last Admin: 11/02/18 21:06 Dose: 100 mls/hr Dextrose/Sodium Chloride (D5-0.9%Ns) 1,000 mls @ 40 mls/hr IV .Q24H [facility] Stop: 01/02/19 13:29 Last Admin: 11/03/18 14:56 Dose: 40 mls/hr Magnesium Hydroxide (Milk Of Magnesia) 30 ml PO DAILY PRN PRN Reason: Constipation Stop: 12/29/18 19:31 Midodrine (Proamatine) 5 mg PO BID [facility] Stop: 12/31/18 16:59 Last Admin: 11/03/18 17:13 Dose: 5 mg Miscellaneous (Vte Chemical Prophylaxis Screen/ Admission) 1 ea MC PRN PRN PRN Reason: PROTOCOL Stop: 12/28/18 14:13 Neomycin Sulfate (Neomycin) 500 mg PO Q6HR [facility] Stop: 12/30/18 00:00 Last Admin: 11/03/18 17:07 Dose: 500 mg Pantoprazole Sodium (Protonix) 40 mg PO QDAC [facility] Stop: 12/30/18 07:29 Last Admin: 11/03/18 06:39 Dose: 40 mg Sodium Phosphate (Fleet Enema) 135 ml RC Q48HR PRN PRN Reason: Constipation Stop: 12/29/18 19:31 General: alert, demented HEENT: NC/AT, PERRLA Neck: Supple Lungs: CTAB Cardiovascular: RRR, Normal S1, Normal S2, without murmur Abdomen: soft, non-distended, positive bowel sound Extremities: excoriation Neurological: alert, muscle weakness - Procedures Procedures: Procedures Procedure Code Date DRAINAGE OF PERITONEAL CAVITY, PERCUTANEOUS APPROACH [id number] 10/14/18 Internal Medicine Assmt/Plan - Assessment Assessment: UTI Acute renal failure on Chronic renal failure Dementia Protein Calorie Malnutrition HTN History of Cirrhosis of the Liver History of Ascites Recurrent Ascites - Plan Plan: continue ivabx as per ID am labs aspiration precautions continue current plan of care Nutritional Asmnt/Malnutr-PDOC - Dietary Evaluation Malnutrition Findings (Please click <Entered> for more info): Nutritional Asmnt/Malnutrition Start: 10/31/18 13: 39 Text: Status: Complete Freq: Protocol: Document 10/31/18 13:39 [email or web address] (Rec: 10/31/18 13:56 [email or web address]) Nutritional Asmnt/Malnutrition Patient General Information Nutritional Screening High Risk Consult Diagnosis increasing renal failure, cachexia Pertinent Medical Hx/Surgical Hx HTN, PUD/GERD, arthritis, dementia, liver disease Subjective Information Consult recieved for steven score 12. Pt was seen being fed by LANDING SUPPORT SPECIALIST at time of visit. Pt only wanted coffee and was picking at her food. PO intake is 0-50%. Food preferences taken, pt agreed to try nutritional supplement. Current Diet Order/ Nutrition Support [facility] soft ground Pertinent Medications vit c, colace, lasix, heparin, neomycin, d5-0.45ns w/ KCl, sodium phosphate Pertinent Labs 10/31 Na 134, BUN 62, Cr 2.4, ca 8.5, alb 2.2 10/30 Na 132, BUN 65, cr 2.6, glucose 133 Nutritional Hx/Data Height 4 ft 10 in Height (Calculated Centimeters) 147.3 Current Weight (lbs) 72 lb Weight (Calculated Kilograms) 32.7 Weight (Calculated Grams) 98798.7 [place] Body Weight 96 Body Mass Index (BMI) 15.0 Weight Status Underweight GI Symptoms GI Symptoms None Last BM 10/30 Difficult in: None Food Allergies No Skin Integrity/Comment: wounds: left abdomen, left lateral trunk, left posterior trunk, left sacral area steven 12 Current %PO Poor (25-49%) Estimated Nutritional Goals BEE in Kcals: Using Current wt Calories/Kcals/Kg 35-40 Kcals Calculated 0825-4170 Protein: Using Current wt Protein g/k.2-1.4 monitor renal labs Protein Calculated 39-46 Fluid: ml 981-1145 (1ml/kcal) Nutritional Problem 2. Problem Problem altered nutrition related labs Etiology renal dysfunction Signs/Symptoms: BUN 62-65, Cr 2.4-2.6 1. Problem Problem inadequate energy/protein intake Etiology poor appetite and food preference Signs/Symptoms: PO intake <50% Malnutrition Alert Body Fat Depletion (Severe) Mod to Severe Depletion Muscle Mass (Severe) Mod to Severe Depletion Protein-Calorie Malnutrition Severe Is there a minimum of two criteria Yes selected? Query Text:Check all the applicable criteria. A minimum of two criteria are recommended for diagnosis of either severe or non-severe malnutrition. Malnutrition Related to Morbid Obesity Malnutrition related to morbid obesity No Intervention/Recommendation Comments 1. Continue with [facility] soft ground diet as ordered. PO intake is low and no need for protein limit at this time. Will continue monitor renal labs. 2. Add Ensure TID for extra kcal and protein 3. Add Eulogio BID for wound healing 4. Monitor PO intake, wt, labs and skin integrity 5. F/U as high risk in 2-3 days Expected Outcomes/Goals Expected Outcomes/Goals 1. PO intake to meet at least 75% of nutritional needs. 2. Wt stability, skin to remain intact, labs to approach WNL. Reviewed by Autumn Modi RD
[2018-11-03] MEDS: Cefepime 1 GM in Sodium Chloride 0.9% 50 ML IV SCH (21:14)
[2018-11-04] MEDS: Pantoprazole 40 mg EC Tab PO SCH (06:38)
[2018-11-04 07:19] LABS: ANION GAP 11.2 (7.0-16.0); BUN - UREA NITROGEN 45 mg/dL (7-25); CALCIUM SERUM 8.2 mg/dL (8.6-10.3); CARBON DIOXIDE 18.3 mEq/L (21.0-31.0); CHLORIDE 114 mEq/L (98-107); CREATININE - SERUM 1.7 mg/dL (0.6-1.2); GLUCOSE 97 mg/dL (70-105); POTASSIUM SERUM 4.5 mEq/L (3.5-5.1); SODIUM SERUM 139 mEq/L (136-145)
[2018-11-04] MEDS: Multivitamin w/ Minerals Tab PO SCH (08:58)
--- NOTE | 2018-11-04 13:35 | General Progress Note ---
Subjective - Review of Systems Service Date: 11/04/18 Subjective: alert, comfortable, poor appetite, still weak Objective - Results Result Diagrams: 11/03/18 05:48 11/04/18 05:45 Recent Labs: Laboratory Last Values WBC 5.1 Th/cmm (4.8-10.8) 11/03/18 05:48 Corrected WBC (auto) 5.6 Th/cmm (4.8-10.8) 10/31/18 06:05 RBC 3.01 Mil/cmm (3.80-5.20) L 11/03/18 05:48 Hgb 11.0 gm/dL (12-16) L 11/03/18 05:48 Hct 31.7 % (41.0-60) L 11/03/18 05:48 MCV 105.6 fl (81-100) H 11/03/18 05:48 MCH 36.6 pg (27.0-31.0) H 11/03/18 05:48 MCHC Differential 34.7 pg (28.0-36.0) 11/03/18 05:48 RDW 14.8 % (11.5-20.0) 11/03/18 05:48 Plt Count 132 Th/cmm (150-400) L 11/03/18 05:48 MPV 7.9 fl 11/03/18 05:48 Add Manual Diff YES 11/03/18 05:48 Neutrophils % 64.0 % (40.0-80.0) 10/31/18 06:05 Band Neutrophils % 1 % (0-10) 11/02/18 06:16 Lymphocytes % 29.0 % (20.0-50.0) 10/31/18 06:05 Monocytes % 6.0 % (2.0-10.0) 10/31/18 06:05 Eosinophils % 1.0 % (0.0-5.0) 10/31/18 06:05 Basophils % KNUCKLE BENDER 10/31/18 06:05 Neutrophils (Manual) 57 % (40-80) 11/03/18 05:48 Lymphocytes 33 % (20-50) 11/03/18 05:48 Monocytes 10 % (2-10) 11/03/18 05:48 Eosinophils 1 % (0-5) 11/02/18 06:16 Basophils 0 % (0-3) 11/02/18 06:16 Platelet Estimate ADEQUATE (NORMAL) 11/03/18 05:48 Macrocytosis 1+ 11/03/18 05:48 Smear Path Review N 10/31/18 06:05 PT 10.7 SECONDS (9.5-11.5) 10/29/18 10:20 INR 1.03 (0.5-1.4) 10/29/18 10:20 PTT (Actin FS) 28.7 SECONDS (26.0-38.0) 10/29/18 10:20 Sodium 139 mEq/L (136-145) 11/04/18 05:45 Potassium 4.5 mEq/L (3.5-5.1) 11/04/18 05:45 Chloride 114 mEq/L (98-107) H 11/04/18 05:45 Carbon Dioxide 18.3 mEq/L (21.0-31.0) L 11/04/18 05:45 Anion Gap 11.2 (7.0-16.0) 11/04/18 05:45 BUN 45 mg/dL (7-25) H 11/04/18 05:45 Creatinine 1.7 mg/dL (0.6-1.2) H 11/04/18 05:45 Est GFR ( Amer) TNP 11/04/18 05:45 Est GFR (Non-Af Amer) TNP 11/04/18 05:45 BUN/Creatinine Ratio 26.5 11/04/18 05:45 Glucose 97 mg/dL (70-105) 11/04/18 05:45 Whole Bld Lactic Acid 1.18 mmol/L (0.60-1.99) 10/30/18 07:35 Calcium 8.2 mg/dL (8.6-10.3) L 11/04/18 05:45 Magnesium 2.3 mg/dL (1.9-2.7) 10/29/18 10:20 Total Bilirubin 0.6 mg/dL (0.3-1.0) 10/31/18 06:05 AST 40 U/L (13-39) H 10/31/18 06:05 ALT 24 U/L (7-52) 10/31/18 06:05 Alkaline Phosphatase 69 U/L (34-104) 10/31/18 06:05 Ammonia 26 umol/L (16-53) 10/30/18 07:35 Troponin I 0.04 ng/mL (0.01-0.05) 10/29/18 10:20 Total Protein 5.2 gm/dL (6.0-8.3) L 10/31/18 06:05 Albumin 2.2 gm/dL (3.7-5.3) L 10/31/18 06:05 Globulin 3.0 gm/dL 10/31/18 06:05 Albumin/Globulin Ratio 0.7 (1.0-1.8) L 10/31/18 06:05 TSH 2.78 uIU/ml (0.34-5.60) 10/29/18 10:20 Urine Source NEUMANN [place] 10/29/18 18:00 Urine Color YELLOW 10/29/18 18:00 Urine Clarity CLOUDY (CLEAR) H 10/29/18 18:00 Urine pH 5.5 (4.6 - 8.0) 10/29/18 18:00 Ur Specific [place] <= 1.005 (1.005-1.030) 10/29/18 18:00 Urine Protein NEGATIVE mg/dL (NEGATIVE) 10/29/18 18:00 Urine Glucose (UA) NEGATIVE mg/dL (NEGATIVE) 10/29/18 18:00 Urine Ketones NEGATIVE mg/dL (NEGATIVE) 10/29/18 18:00 Urine Blood SMALL (NEGATIVE) H 10/29/18 18:00 Urine Nitrate NEGATIVE (NEGATIVE) 10/29/18 18:00 Urine Bilirubin NEGATIVE (NEGATIVE) 10/29/18 18:00 Urine Urobilinogen 0.2 E.U./dL (0.2 - 1.0) 10/29/18 18:00 Ur Leukocyte Esterase LARGE (NEGATIVE) H 10/29/18 18:00 Urine RBC 2-5 /hpf (0-5) 10/29/18 18:00 Urine WBC 50-100 /hpf (0-5) H 10/29/18 18:00 Ur Epithelial Cells FEW /lpf (FEW) 10/29/18 18:00 Urine Bacteria MANY /hpf (NONE SEEN) H 10/29/18 18:00 Hepatitis A IgM Ab Negative (Negative) 10/31/18 06:05 Hep Bs Antigen Positive (Negative) H 01/28/19 06:05 Hep B Core IgM Ab Negative (Negative) 10/31/18 06:05 Hepatitis C Antibody <0.1 s/co ratio (0.0-0.9) 10/31/18 06:05 - Physical Exam Vitals and I&O: Vital Signs Temp 96.3 F 11/04/18 11:39 Pulse 70 11/04/18 11:39 Resp 17 11/04/18 11:39 BP 113/68 11/04/18 11:39 Pulse Ox 97 11/04/18 11:39 Intake & Output 11/03/18 11/04/18 11/04/18 18:59 06:59 18:59 Intake Total 900 50 Output Total 450 Balance 450 50 Weight (lbs) 35.652 kg Intake: Intake, IV Amount 50 Cefepime 1 gm In Sodium 50 Chloride 0.9% 50 ml @ 100 mls/hr IV Q24HR [facility] Rx#: [id number] Oral 900 Output: Urine 450 Other: # Bowel Movements 2 Weight Source Bedscale Active Medications: Current Medications Albuterol Sulfate (Albuterol 2.5mg/3ml Neb Ud) 2.5 mg HHN Q6HR PRN PRN Reason: Shortness of Breath Ascorbic Acid (Vitamin C) 500 mg PO DAILY [facility] Stop: 12/30/18 08:59 Last Admin: 11/04/18 08:59 Dose: 500 mg Bisacodyl (Dulcolax 10 Mg Supp) 10 mg RC DAILY PRN PRN Reason: Constipation Stop: 12/29/18 19:31 Docusate Sodium (Colace) 250 mg PO DAILY [facility] Stop: 12/30/18 08:59 Last Admin: 11/04/18 08:59 Dose: 250 mg Fluconazole (Diflucan) 100 mg PO DAILY [facility] Stop: 12/31/18 13:14 Last Admin: 11/04/18 08:59 Dose: 100 mg Heparin Sodium (Porcine) (Heparin) 5,000 units SUBQ Q12HR [facility] Stop: 12/28/18 20:59 Last Admin: 11/04/18 09:06 Dose: Not Given Cefepime HCl 1 gm/ Sodium (Chloride) 50 mls @ 100 mls/hr IV Q24HR [facility] Stop: 12/29/18 20:59 Last Infusion: 11/03/18 22:24 Dose: Infused Dextrose/Sodium Chloride (D5-0.9%Ns) 1,000 mls @ 40 mls/hr IV .Q24H [facility] Stop: 01/02/19 13:29 Last Admin: 11/03/18 14:56 Dose: 40 mls/hr Magnesium Hydroxide (Milk Of Magnesia) 30 ml PO DAILY PRN PRN Reason: Constipation Stop: 12/29/18 19:31 Midodrine (Proamatine) 5 mg PO BID [facility] Stop: 12/31/18 16:59 Last Admin: 11/04/18 08:59 Dose: 5 mg Miscellaneous (Vte Chemical Prophylaxis Screen/ Admission) 1 ea [facility] PRN PRN PRN Reason: PROTOCOL Stop: 12/28/18 14:13 Neomycin Sulfate (Neomycin) 500 mg PO Q6HR [facility] Stop: 12/30/18 00:00 Last Admin: 11/04/18 11:58 Dose: 500 mg Pantoprazole Sodium (Protonix) 40 mg PO QDAC [facility] Stop: 12/30/18 07:29 Last Admin: 11/04/18 06:38 Dose: 40 mg Sodium Phosphate (Fleet Enema) 135 ml RC Q48HR PRN PRN Reason: Constipation Stop: 12/29/18 19:31 General: Alert, No acute distress HEENT: Atraumatic, PERRLA, Mucous membr. 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 Complex Cyst Right Kidney Lower ext lesions Hep B Ag - Plan Plan: Lab - Result Diagrams 10/31/18 06:05 10/31/18 06:05 Current Medications Albuterol Sulfate (Albuterol 2.5mg/3ml Neb Ud) 2.5 mg HHN Q6HR PRN PRN Reason: Shortness of Breath Ascorbic Acid (Vitamin C) 500 mg PO DAILY [facility] Stop: 12/30/18 08:59 Last Admin: 11/01/18 09:49 Dose: 500 mg Bisacodyl (Dulcolax 10 Mg Supp) 10 mg RC DAILY PRN PRN Reason: Constipation Stop: 12/29/18 19:31 Docusate Sodium (Colace) 250 mg PO DAILY [facility] Stop: 12/30/18 08:59 Last Admin: 11/01/18 09:49 Dose: 250 mg Fluconazole (Diflucan) 100 mg PO DAILY [facility] Stop: 12/31/18 13:14 Heparin Sodium (Porcine) (Heparin) 5,000 units SUBQ Q12HR [facility] Stop: 12/28/18 20:59 Last Admin: 11/01/18 09:43 Dose: Not Given Cefepime HCl 1 gm/ Sodium (Chloride) 50 mls @ 100 mls/hr IV Q24HR [facility] Stop: 12/29/18 20:59 Last Admin: 10/31/18 21:42 Dose: 100 mls/hr Sodium Chloride (Nacl 0.9%) 1,000 mls @ 100 mls/hr IV .Q10H [facility] Stop: 12/31/18 14:39 Magnesium Hydroxide (Milk Of Magnesia) 30 ml PO DAILY PRN PRN Reason: Constipation Stop: 12/29/18 19:31 Miscellaneous (Vte Chemical Prophylaxis Screen/ Admission) 1 ea [facility] PRN PRN PRN Reason: PROTOCOL Stop: 12/28/18 14:13 Neomycin Sulfate (Neomycin) 500 mg PO Q6HR [facility] Stop: 12/30/18 00:00 Last Admin: 11/01/18 12:17 Dose: 500 mg Pantoprazole Sodium (Protonix) 40 mg PO QDAC [facility] Stop: 12/30/18 07:29 Last Admin: 11/01/18 06:37 Dose: 40 mg Sodium Phosphate (Fleet Enema) 135 ml RC Q48HR PRN PRN Reason: Constipation Stop: 12/29/18 19:31 Lab - Result Diagrams 11/03/18 05:48 11/04/18 05:45 Kidney fnc remains the same continue hydration for now because of persistent hypotension start Midodrine for kidney failure, hypotension in liver cirrhosis start [id number] f/u electrolytes Nutritional Asmnt/Malnutr-PDOC - Dietary Evaluation Malnutrition Findings (Please click <Entered> for more info): Nutritional Asmnt/Malnutrition Start: 10/31/18 13: 39 Text: Status: Complete Freq: Protocol: Document 10/31/18 13:39 [email or web address] (Rec: 10/31/18 13:56 [email or web address]) Nutritional Asmnt/Malnutrition Patient General Information Nutritional Screening High Risk Consult Diagnosis increasing renal failure, cachexia Pertinent Medical Hx/Surgical Hx HTN, PUD/GERD, arthritis, dementia, liver disease Subjective Information Consult recieved for steven score 12. Pt was seen being fed by LOSS PREVENTION RESEARCH ENGINEER at time of visit. Pt only wanted coffee and was picking at her food. PO intake is 0-50%. Food preferences taken, pt agreed to try nutritional supplement. Current Diet Order/ Nutrition Support [facility] soft ground Pertinent Medications vit c, colace, lasix, heparin, neomycin, d5-0.45ns w/ KCl, sodium phosphate Pertinent Labs 10/31 Na 134, BUN 62, Cr 2.4, ca 8.5, alb 2.2 10/30 Na 132, BUN 65, cr 2.6, glucose 133 Nutritional Hx/Data Height 1.47 m Height (Calculated Centimeters) 147.3 Current Weight (lbs) 32.659 kg Weight (Calculated Kilograms) 32.7 Weight (Calculated Grams) 78054.7 [place] Body Weight 96 Body Mass Index (BMI) 15.0 Weight Status Underweight GI Symptoms GI Symptoms None Last BM 10/30 Difficult in: None Food Allergies No Skin Integrity/Comment: wounds: left abdomen, left lateral trunk, left posterior trunk, left sacral area steven 12 Current %PO Poor (25-49%) Estimated Nutritional Goals BEE in Kcals: Using Current wt Calories/Kcals/Kg 35-40 Kcals Calculated 4619-3712 Protein: Using Current wt Protein g/k.2-1.4 monitor renal labs Protein Calculated 39-46 Fluid: ml 981-1145 (1ml/kcal) Nutritional Problem 2. Problem Problem altered nutrition related labs Etiology renal dysfunction Signs/Symptoms: BUN 62-65, Cr 2.4-2.6 1. Problem Problem inadequate energy/protein intake Etiology poor appetite and food preference Signs/Symptoms: PO intake <50% Malnutrition Alert Body Fat Depletion (Severe) Mod to Severe Depletion Muscle Mass (Severe) Mod to Severe Depletion Protein-Calorie Malnutrition Severe Is there a minimum of two criteria Yes selected? Query Text:Check all the applicable criteria. A minimum of two criteria are recommended for diagnosis of either severe or non-severe malnutrition. Malnutrition Related to Morbid Obesity Malnutrition related to morbid obesity No Intervention/Recommendation Comments 1. Continue with [facility] soft ground diet as ordered. PO intake is low and no need for protein limit at this time. Will continue monitor renal labs. 2. Add Ensure TID for extra kcal and protein 3. Add Eulogio BID for wound healing 4. Monitor PO intake, wt, labs and skin integrity 5. F/U as high risk in 2-3 days Expected Outcomes/Goals Expected Outcomes/Goals 1. PO intake to meet at least 75% of nutritional needs. 2. Wt stability, skin to remain intact, labs to approach WNL. Reviewed by Autumn Modi RD
--- NOTE | 2018-11-04 13:49 | Infectious Disease Prog Note ---
Infectious Disease Subjective - Review of Systems Service Date: 11/04/18 Subjective: no change, no fever. Infectious Disease Objective - Results Result Diagrams: 11/03/18 05:48 11/04/18 05:45 Recent Labs: Laboratory Last Values WBC 5.1 Th/cmm (4.8-10.8) 11/03/18 05:48 Corrected WBC (auto) 5.6 Th/cmm (4.8-10.8) 10/31/18 06:05 RBC 3.01 Mil/cmm (3.80-5.20) L 11/03/18 05:48 Hgb 11.0 gm/dL (12-16) L 11/03/18 05:48 Hct 31.7 % (41.0-60) L 11/03/18 05:48 MCV 105.6 fl (81-100) H 11/03/18 05:48 MCH 36.6 pg (27.0-31.0) H 11/03/18 05:48 MCHC Differential 34.7 pg (28.0-36.0) 11/03/18 05:48 RDW 14.8 % (11.5-20.0) 11/03/18 05:48 Plt Count 132 Th/cmm (150-400) L 11/03/18 05:48 MPV 7.9 fl 11/03/18 05:48 Add Manual Diff YES 11/03/18 05:48 Neutrophils % 64.0 % (40.0-80.0) 10/31/18 06:05 Band Neutrophils % 1 % (0-10) 11/02/18 06:16 Lymphocytes % 29.0 % (20.0-50.0) 10/31/18 06:05 Monocytes % 6.0 % (2.0-10.0) 10/31/18 06:05 Eosinophils % 1.0 % (0.0-5.0) 10/31/18 06:05 Basophils % AGRICULTURAL ECONOMICS PROFESSOR 10/31/18 06:05 Neutrophils (Manual) 57 % (40-80) 11/03/18 05:48 Lymphocytes 33 % (20-50) 11/03/18 05:48 Monocytes 10 % (2-10) 11/03/18 05:48 Eosinophils 1 % (0-5) 11/02/18 06:16 Basophils 0 % (0-3) 11/02/18 06:16 Platelet Estimate ADEQUATE (NORMAL) 11/03/18 05:48 Macrocytosis 1+ 11/03/18 05:48 Smear Path Review N 10/31/18 06:05 PT 10.7 SECONDS (9.5-11.5) 10/29/18 10:20 INR 1.03 (0.5-1.4) 10/29/18 10:20 PTT (Actin FS) 28.7 SECONDS (26.0-38.0) 10/29/18 10:20 Sodium 139 mEq/L (136-145) 11/04/18 05:45 Potassium 4.5 mEq/L (3.5-5.1) 11/04/18 05:45 Chloride 114 mEq/L (98-107) H 11/04/18 05:45 Carbon Dioxide 18.3 mEq/L (21.0-31.0) L 11/04/18 05:45 Anion Gap 11.2 (7.0-16.0) 11/04/18 05:45 BUN 45 mg/dL (7-25) H 11/04/18 05:45 Creatinine 1.7 mg/dL (0.6-1.2) H 11/04/18 05:45 Est GFR ( Amer) TNP 11/04/18 05:45 Est GFR (Non-Af Amer) TNP 11/04/18 05:45 BUN/Creatinine Ratio 26.5 11/04/18 05:45 Glucose 97 mg/dL (70-105) 11/04/18 05:45 Whole Bld Lactic Acid 1.18 mmol/L (0.60-1.99) 10/30/18 07:35 Calcium 8.2 mg/dL (8.6-10.3) L 11/04/18 05:45 Magnesium 2.3 mg/dL (1.9-2.7) 10/29/18 10:20 Total Bilirubin 0.6 mg/dL (0.3-1.0) 10/31/18 06:05 AST 40 U/L (13-39) H 10/31/18 06:05 ALT 24 U/L (7-52) 10/31/18 06:05 Alkaline Phosphatase 69 U/L (34-104) 10/31/18 06:05 Ammonia 26 umol/L (16-53) 10/30/18 07:35 Troponin I 0.04 ng/mL (0.01-0.05) 10/29/18 10:20 Total Protein 5.2 gm/dL (6.0-8.3) L 10/31/18 06:05 Albumin 2.2 gm/dL (3.7-5.3) L 10/31/18 06:05 Globulin 3.0 gm/dL 10/31/18 06:05 Albumin/Globulin Ratio 0.7 (1.0-1.8) L 10/31/18 06:05 TSH 2.78 uIU/ml (0.34-5.60) 10/29/18 10:20 Urine Source [place] 10/29/18 18:00 Urine Color YELLOW 10/29/18 18:00 Urine Clarity CLOUDY (CLEAR) H 10/29/18 18:00 Urine pH 5.5 (4.6 - 8.0) 10/29/18 18:00 Ur Specific [place] <= 1.005 (1.005-1.030) 10/29/18 18:00 Urine Protein NEGATIVE mg/dL (NEGATIVE) 10/29/18 18:00 Urine Glucose (UA) NEGATIVE mg/dL (NEGATIVE) 10/29/18 18:00 Urine Ketones NEGATIVE mg/dL (NEGATIVE) 10/29/18 18:00 Urine Blood SMALL (NEGATIVE) H 10/29/18 18:00 Urine Nitrate NEGATIVE (NEGATIVE) 10/29/18 18:00 Urine Bilirubin NEGATIVE (NEGATIVE) 10/29/18 18:00 Urine Urobilinogen 0.2 E.U./dL (0.2 - 1.0) 10/29/18 18:00 Ur Leukocyte Esterase LARGE (NEGATIVE) H 10/29/18 18:00 Urine RBC 2-5 /hpf (0-5) 10/29/18 18:00 Urine WBC 50-100 /hpf (0-5) H 10/29/18 18:00 Ur Epithelial Cells FEW /lpf (FEW) 10/29/18 18:00 Urine Bacteria MANY /hpf (NONE SEEN) H 10/29/18 18:00 Hepatitis A IgM Ab Negative (Negative) 10/31/18 06:05 Hep Bs Antigen Positive (Negative) H 10/31/18 06:05 Hep B Core IgM Ab Negative (Negative) 10/31/18 06:05 Hepatitis C Antibody <0.1 s/co ratio (0.0-0.9) 10/31/18 06:05 - Physical Exam Vitals and I&O: Vital Signs Temp 96.3 F 11/04/18 11:39 Pulse 70 11/04/18 11:39 Resp 17 11/04/18 11:39 BP 113/68 11/04/18 11:39 Pulse Ox 97 11/04/18 11:39 Intake & Output 11/03/18 11/04/18 11/04/18 18:59 06:59 18:59 Intake Total 900 50 Output Total 450 Balance 450 50 Weight (lbs) 35.652 kg Intake: Intake, IV Amount 50 Cefepime 1 gm In Sodium 50 Chloride 0.9% 50 ml @ 100 mls/hr IV Q24HR [facility] Rx#: [id number] Oral 900 Output: Urine 450 Other: # Bowel Movements 2 Weight Source Bedscale Active Medications: Current Medications Albuterol Sulfate (Albuterol 2.5mg/3ml Neb Ud) 2.5 mg HHN Q6HR PRN PRN Reason: Shortness of Breath Ascorbic Acid (Vitamin C) 500 mg PO DAILY [facility] Stop: 12/30/18 08:59 Last Admin: 11/04/18 08:59 Dose: 500 mg Bisacodyl (Dulcolax 10 Mg Supp) 10 mg RC DAILY PRN PRN Reason: Constipation Stop: 12/29/18 19:31 Docusate Sodium (Colace) 250 mg PO DAILY [facility] Stop: 12/30/18 08:59 Last Admin: 11/04/18 08:59 Dose: 250 mg Fluconazole (Diflucan) 100 mg PO DAILY [facility] Stop: 12/31/18 13:14 Last Admin: 11/04/18 08:59 Dose: 100 mg Heparin Sodium (Porcine) (Heparin) 5,000 units SUBQ Q12HR [facility] Stop: 12/28/18 20:59 Last Admin: 11/04/18 09:06 Dose: Not Given Cefepime HCl 1 gm/ Sodium (Chloride) 50 mls @ 100 mls/hr IV Q24HR [facility] Stop: 12/29/18 20:59 Last Infusion: 11/03/18 22:24 Dose: Infused Dextrose/Sodium Chloride (D5-0.9%Ns) 1,000 mls @ 40 mls/hr IV .Q24H [facility] Stop: 01/02/19 13:29 Last Admin: 11/03/18 14:56 Dose: 40 mls/hr Magnesium Hydroxide (Milk Of Magnesia) 30 ml PO DAILY PRN PRN Reason: Constipation Stop: 12/29/18 19:31 Midodrine (Proamatine) 5 mg PO BID [facility] Stop: 12/31/18 16:59 Last Admin: 11/04/18 08:59 Dose: 5 mg Miscellaneous (Vte Chemical Prophylaxis Screen/ Admission) 1 ea [facility] PRN PRN PRN Reason: PROTOCOL Stop: 12/28/18 14:13 Neomycin Sulfate (Neomycin) 500 mg PO Q6HR [facility] Stop: 12/30/18 00:00 Last Admin: 11/04/18 11:58 Dose: 500 mg Pantoprazole Sodium (Protonix) 40 mg PO QDAC [facility] Stop: 12/30/18 07:29 Last Admin: 11/04/18 06:38 Dose: 40 mg Sodium Bicarbonate (Sodium Bicarbonate) 650 mg PO BID [facility]; Protocol Stop: 01/03/19 16:59 Sodium Phosphate (Fleet Enema) 135 ml RC Q48HR PRN PRN Reason: Constipation Stop: 12/29/18 19:31 General: no acute distress HEENT: atraumatic, normocephalic, PERRLA, EOMI Neck: supple, no thyromegaly Cardiovascular: S1S2, regular Lungs: clear to auscultation bilaterally, clear to percussion Abdomen: soft, no tender, no distended, no mass Extremities: no cyanosis, no clubbing, no edema Neurological: awake, alert - Procedures Procedures: Procedures Procedure Code Date DRAINAGE OF PERITONEAL CAVITY, PERCUTANEOUS APPROACH [id number] 10/14/18 Infectious Disease Assmt/Plan - Assessment Assessment: 1. UTI. - candiduria 2. Acute renal failure on chronic renal failure. 3. Dementia. 4. Protein calorie malnutrition. 5. HTN. - Plan Plan: Continue the same treatment. F/u renal us. cont diflucan po for 5 more days.. Nutritional Asmnt/Malnutr-PDOC - Dietary Evaluation Malnutrition Findings (Please click <Entered> for more info): Nutritional Asmnt/Malnutrition Start: 10/31/18 13: 39 Text: Status: Complete Freq: Protocol: Document 10/31/18 13:39 [email or web address] (Rec: 10/31/18 13:56 [email or web address]) Nutritional Asmnt/Malnutrition Patient General Information Nutritional Screening High Risk Consult Diagnosis increasing renal failure, cachexia Pertinent Medical Hx/Surgical Hx HTN, PUD/GERD, arthritis, dementia, liver disease Subjective Information Consult recieved for stveen score 12. Pt was seen being fed by CLIENT CUSTOMER MANAGER at time of visit. Pt only wanted coffee and was picking at her food. PO intake is 0-50%. Food preferences taken, pt agreed to try nutritional supplement. Current Diet Order/ Nutrition Support [facility] soft ground Pertinent Medications vit c, colace, lasix, heparin, neomycin, d5-0.45ns w/ KCl, sodium phosphate Pertinent Labs 10/31 Na 134, BUN 62, Cr 2.4, ca 8.5, alb 2.2 10/30 Na 132, BUN 65, cr 2.6, glucose 133 Nutritional Hx/Data Height 1.47 m Height (Calculated Centimeters) 147.3 Current Weight (lbs) 32.659 kg Weight (Calculated Kilograms) 32.7 Weight (Calculated Grams) 31755.7 [place] Body Weight 96 Body Mass Index (BMI) 15.0 Weight Status Underweight GI Symptoms GI Symptoms None Last BM 10/30 Difficult in: None Food Allergies No Skin Integrity/Comment: wounds: left abdomen, left lateral trunk, left posterior trunk, left sacral area steven 12 Current %PO Poor (25-49%) Estimated Nutritional Goals BEE in Kcals: Using Current wt Calories/Kcals/Kg 35-40 Kcals Calculated 2071-2305 Protein: Using Current wt Protein g/k.2-1.4 monitor renal labs Protein Calculated 39-46 Fluid: ml 981-1145 (1ml/kcal) Nutritional Problem 2. Problem Problem altered nutrition related labs Etiology renal dysfunction Signs/Symptoms: BUN 62-65, Cr 2.4-2.6 1. Problem Problem inadequate energy/protein intake Etiology poor appetite and food preference Signs/Symptoms: PO intake <50% Malnutrition Alert Body Fat Depletion (Severe) Mod to Severe Depletion Muscle Mass (Severe) Mod to Severe Depletion Protein-Calorie Malnutrition Severe Is there a minimum of two criteria Yes selected? Query Text:Check all the applicable criteria. A minimum of two criteria are recommended for diagnosis of either severe or non-severe malnutrition. Malnutrition Related to Morbid Obesity Malnutrition related to morbid obesity No Intervention/Recommendation Comments 1. Continue with [facility] soft ground diet as ordered. PO intake is low and no need for protein limit at this time. Will continue monitor renal labs. 2. Add Ensure TID for extra kcal and protein 3. Add Eulogio BID for wound healing 4. Monitor PO intake, wt, labs and skin integrity 5. F/U as high risk in 2-3 days Expected Outcomes/Goals Expected Outcomes/Goals 1. PO intake to meet at least 75% of nutritional needs. 2. Wt stability, skin to remain intact, labs to approach WNL. Reviewed by Autumn Modi RD
== END 2018-11-04 20:09 | DRG 682 ==
LOC: ER 09:21 → MSI 10:45 → TELE 10-31 14:01
PROVIDERS: ADMIT Internal Medicine; ATTEND Internal Medicine
DX: N17.9 Acute kidney failure, unspecified (principal); E43 Unspecified severe protein-calorie malnutrition; R64 Cachexia; K86.1 Other chronic pancreatitis; Z68.1 Body mass index [BMI] 19.9 or less, adult; R18.8 Other ascites; B19.10 Unspecified viral hepatitis B without hepatic coma; G93.40 Encephalopathy, unspecified; B37.49 Other urogenital candidiasis; N18.9 Chronic kidney disease, unspecified; K80.20 Calculus of gallbladder without cholecystitis without obstruction; K74.60 Unspecified cirrhosis of liver; K21.9 Gastro-esophageal reflux disease without esophagitis; M19.90 Unspecified osteoarthritis, unspecified site; R62.7 Adult failure to thrive; I12.9 Hypertensive chronic kidney disease with stage 1 through stage 4 chronic kidney disease, or unspecified chronic kidney disease; E86.0 Dehydration; D64.9 Anemia, unspecified; N28.1 Cyst of kidney, acquired; G30.9 Alzheimer's disease, unspecified; F02.80 Dementia in other diseases classified elsewhere, unspecified severity, without behavioral disturbance, psychotic disturbance, mood disturbance, and anxiety; K56.41 Fecal impaction
CPT/HCPCS: 36415-UA; 71045-TC; 76770-TC; 80048-TC; 80053-TC; 80074-90; 81001-TC; 82140-TC; 83605; 83735-TC; 84443-TC; 84484-TC; 85007-TC; 85025-TC; 85610-TC; 85730-TC; 87086-90; 90732; 90784; 93005; J0692; J1644; J7030; J7042; Z7610